=== PATIENT | male | born 1960 | race Caucasian/White ===

== ENCOUNTER 2022-02-23 01:18 | Inpatient (IN) | payer MEDICAID ==
[~2022-02-23] VITALS: Ht 180.3 cm; Wt 103.8 kg
[~2022-02-23 01:18] MED LIST: ALBU18HF2 INH; ASPI81TA52 PO; ATOR20TA66 PO; FLUT1AER5 IH; INSU100I31 SQ; LISI5TAB22 PO; METO200T49 PO; NITR0.4T48 SL; OMEP20TA23 PO
[2022-02-23 02:15] LABS: ALANINE AMINOTRANSFERASE 28 U/L (12-78); ALBUMIN 3.3 G/DL (3.4-5.0); ALBUMIN/GLOBULIN RATIO 0.7 (1.1-1.5); ALKALINE PHOSPHATASE 61 IU/L (46-116); ANION GAP 11 (8-16); ASPARTATE AMINO TRANSFERASE 21 U/L (10-37); BILIRUBIN,TOTAL 0.4 MG/DL (0.1-1.0); BLOOD UREA NITROGEN 68 MG/DL (7-18); BUN/CREATININE RATIO 16.4 (5.4-32.0); CHLORIDE 101 MMOL/L (99-107); CREATININE 4.14 MG/DL (0.60-1.10); GLUCOSE 180 MG/DL (70-104); POTASSIUM 5.5 MMOL/L (3.5-5.1); SODIUM 133 MMOL/L (135-145); TOTAL CARBON DIOXIDE 20.9 MMOL/L (24-32); TOTAL PROTEIN 8.3 G/DL (6.4-8.2); eGFR 15 ML/MIN
[2022-02-23 02:23] LABS: MAGNESIUM 2.1 MG/DL (1.5-2.4)
[2022-02-23 02:27] LABS: BASOPHILS # (AUTO) 0.1 X10'3 (0-0.2); BASOPHILS % (AUTO) 0.5 % (0-1); EOSINOPHILS # (AUTO) 0.4 X10'3 (0-0.9); HEMATOCRIT 57.4 % (42.0-52.0); LYMPHOCYTES # (AUTO) 1.9 X10'3 (1.1-4.8); LYMPHOCYTES % (AUTO) 18.1 % (21-51); MEAN CORPUSCULAR HEMOGLOBIN 29.9 PG (27.0-31.0); MEAN CORPUSCULAR HGB CONC 33.5 g/dL (33.0-36.5); MEAN CORPUSCULAR VOLUME 89.3 FL (78-98); MEAN PLATELET VOLUME 9.7 FL (7.4-10.4); MONOCYTES # (AUTO) 1.4 X10'3 (0-0.9); MONOCYTES % (AUTO) 13.6 % (2-12); NEUTROPHILS # (AUTO) 6.7 X10'3 (1.8-7.7); NEUTROPHILS % (AUTO) 63.8 % (42-75); PLATELET COUNT 211 X10'3 (140-440); RED BLOOD COUNT 6.42 X10'6 (4.70-6.10); WHITE BLOOD COUNT 10.5 X10'3 (4.5-11.0)
[2022-02-23 02:35] LABS: HEMOGLOBIN 19.2 g/dl (14.0-17.9)
[2022-02-23] MEDS ORDERED: normal saline 1000ML IV soln IVB ONE (02:50)
[2022-02-23] MEDS ORDERED: POTASSIUM BICARB 20meq eff tab 20 MEQ TABLET.EFF PO PRN ×2 (03:05)
[2022-02-23] MEDS ORDERED: potassium CL 10mEq/100ml bag 100 ML IV PRN (03:05)
[2022-02-23] MEDS ORDERED: morphine 2 MG/ML inj. syringe IV PRN (03:05)
[2022-02-23] MEDS ORDERED: HYDROcodone/acetaminophen 5mg/325mg tablet PO PRN (03:05)
[2022-02-23] MEDS ORDERED: MESSAGE TO PHARMACY PO ONE (03:05)
[2022-02-23] MEDS ORDERED: dextrose 50%-water 50ml dispensing syringe IV PRN ×2 (03:05)
[2022-02-23] MEDS ORDERED: DEXTROSE 15 GM of carb/4 tabs (each vial/BOTTLE has 4 tablets) PO PRN ×2 (03:05)
[2022-02-23] MEDS ORDERED: acetaminophen 325mg tablet PO PRN ×2 (03:05)
[2022-02-23] MEDS ORDERED: magnesium 4gm in 100ml NS 100 ML IV PRN (03:05)
[2022-02-23] MEDS ORDERED: glucagon, human recombinant 1mg kit SUBCUT PRN (03:05)
[2022-02-23] MEDS ORDERED: mag hydrox/Alum hydrox/simeth 30ml oral suspension PO PRN (03:05)
[2022-02-23] MEDS ORDERED: magnesium 2GM in 50ml NS 50 ML IV PRN (03:05)
[2022-02-23] MEDS ORDERED: ondansetron/PF 4mg/2ml inj IV PRN (03:05)
[2022-02-23] MEDS ORDERED: magnesium Cl slow-release 64mg tablet PO PRN (03:05)
[2022-02-23] MEDS ORDERED: insulin Lispro (HumaLOG) vial - multi-dose SQ SCH (03:05)
[2022-02-23] MEDS ORDERED: sodium polystyrene sulfonate 15gm/60ml oral suspension PO ONE (03:15)
[2022-02-23] MEDS ORDERED: hydrALAZINE 20mg/ml inj. IV PRN (03:30)
[2022-02-23] MEDS: normal saline 1000ml 1,000 ML IV SCH ×3 (04:19→22:50)
[2022-02-23 04:52] LABS: HEMOGLOBIN A1C 7.1 % (4.5-6.2)
--- NOTE | 2022-02-23 06:36 | NUR ---
Assumed patient care at this time. Patient resting comfortably on stretcher.
[2022-02-23] MEDS: pantoprazole 40mg Tablet.DR PO SCH (07:30)
--- NOTE | 2022-02-23 07:30 | NUR ---
Patient ambulated to restroom with staeady gait. Patient denies complaints at this time.
[2022-02-23 07:54] LABS: ALANINE AMINOTRANSFERASE 22 U/L (12-78); ALBUMIN 2.9 G/DL (3.4-5.0); ALBUMIN/GLOBULIN RATIO 0.7 (1.1-1.5); ALKALINE PHOSPHATASE 52 IU/L (46-116); ANION GAP 11 (8-16); ASPARTATE AMINO TRANSFERASE 17 U/L (10-37); BILIRUBIN,TOTAL 0.3 MG/DL (0.1-1.0); BLOOD UREA NITROGEN 68 MG/DL (7-18); BUN/CREATININE RATIO 17.7 (5.4-32.0); CALCIUM 9.5 MG/DL (8.5-10.1); CHLORIDE 106 MMOL/L (99-107); CREATININE 3.85 MG/DL (0.60-1.10); GLUCOSE 133 MG/DL (70-104); POTASSIUM 5.2 MMOL/L (3.5-5.1); SODIUM 135 MMOL/L (135-145); TOTAL CARBON DIOXIDE 18.5 MMOL/L (24-32); TOTAL PROTEIN 7.2 G/DL (6.4-8.2); eGFR 16 ML/MIN
[2022-02-23] MEDS: K and/or MAG REPLACEMENT MC SCH ×2 (08:00→22:50)
[2022-02-23] MEDS: aspirin 81mg, enteric-coated 1 TAB TABLET.DR PO SCH (08:34)
[2022-02-23] MEDS: ceFAZolin/D5W- 1GM premix 50 ML IV SCH ×2 (08:34→16:53)
[2022-02-23] MEDS: amLODIPine 5mg tablet PO SCH (08:34)
[2022-02-23] MEDS: atorvastatin 20mg tablet PO SCH (08:34)
[2022-02-23] MEDS: docusate sod 100mg capsule PO SCH ×2 (08:34→20:55)
[2022-02-23] MEDS: heparin, porcine 5000 units/ml vial SQ SCH ×2 (08:35→20:56)
[2022-02-23] MEDS: metoprolol succinate 25mg (24-HOUR) SR. Tablet PO SCH (08:35)
[2022-02-23] MEDS: allopurinol 100mg tablet PO SCH (08:35)
[2022-02-23] MEDS ORDERED: METO-411 PO (13:22)
[2022-02-23] MEDS ORDERED: MOME13HF PO (13:22)
[2022-02-23] MEDS ORDERED: LOSA50TA64 PO (13:22)
[2022-02-23] MEDS ORDERED: SIMV10TA98 PO (13:22)
[2022-02-23] MEDS ORDERED: ALBU17AE26 PO (13:22)
[2022-02-23] MEDS ORDERED: EZET10TA48 PO (13:22)
[2022-02-23] MEDS: furosemide 10 MG/1 ML 10ml inj IV SCH (18:05)
--- NOTE | 2022-02-23 18:48 | NUR ---
Received report from CAITLIN Palacios. Awaiting patient arrival to the floor.
[2022-02-23 19:20] VITALS: BP 171/105
[2022-02-23] MEDS: insulin glargine (Lantus) pen - multi-dose SQ SCH (21:00)
[2022-02-23 22:00] VITALS: BP 142/92
[2022-02-24 02:00] VITALS: BP 144/108
[2022-02-24 06:24] LABS: BASOPHILS # (AUTO) 0.1 X10'3 (0-0.2); BASOPHILS % (AUTO) 0.7 % (0-1); EOSINOPHILS # (AUTO) 0.5 X10'3 (0-0.9); EOSINOPHILS % (AUTO) 4.7 % (0-6); HEMATOCRIT 51.8 % (42.0-52.0); HEMOGLOBIN 17.4 g/dl (14.0-17.9); LYMPHOCYTES # (AUTO) 1.7 X10'3 (1.1-4.8); LYMPHOCYTES % (AUTO) 17.6 % (21-51); MEAN CORPUSCULAR HEMOGLOBIN 30.2 PG (27.0-31.0); MEAN CORPUSCULAR HGB CONC 33.5 g/dL (33.0-36.5); MEAN CORPUSCULAR VOLUME 89.9 FL (78-98); MEAN PLATELET VOLUME 9.4 FL (7.4-10.4); MONOCYTES # (AUTO) 1.2 X10'3 (0-0.9); MONOCYTES % (AUTO) 11.8 % (2-12); NEUTROPHILS # (AUTO) 6.4 X10'3 (1.8-7.7); NEUTROPHILS % (AUTO) 65.2 % (42-75); PLATELET COUNT 216 X10'3 (140-440); RED BLOOD COUNT 5.76 X10'6 (4.70-6.10); WHITE BLOOD COUNT 9.8 X10'3 (4.5-11.0)
--- NOTE | 2022-02-24 06:43 | NUR ---
Patient in room PCU 3019. I have received report from Boris TUCKER and had the opportunity to ask questions and assume patient care.
[2022-02-24 06:44] LABS: ALANINE AMINOTRANSFERASE 19 U/L (12-78); ALBUMIN/GLOBULIN RATIO 0.7 (1.1-1.5); ALKALINE PHOSPHATASE 58 IU/L (46-116); ANION GAP 12 (8-16); ASPARTATE AMINO TRANSFERASE 18 U/L (10-37); BILIRUBIN,TOTAL 0.3 MG/DL (0.1-1.0); BLOOD UREA NITROGEN 63 MG/DL (7-18); CHLORIDE 106 MMOL/L (99-107); CHOL/HDL RATIO 4.2 (0.00-4.99); CHOLESTEROL 135 MG/DL (0-200); GLUCOSE 118 MG/DL (70-104); HDL CHOLESTEROL 32 MG/DL (35-60); LDL CHOLESTEROL 78 MG/DL (50-100); SODIUM 137 MMOL/L (135-145); TOTAL CARBON DIOXIDE 18.8 MMOL/L (24-32); TOTAL PROTEIN 7.4 G/DL (6.4-8.2); TRIGLYCERIDES 215 MG/DL (20-135); eGFR 17 ML/MIN
--- NOTE | 2022-02-24 06:45 | NUR ---
Problems reprioritized. Patient report given, questions answered & plan of care reviewed with CAITLIN Cox.
[2022-02-24 07:16] VITALS: BP 140/106
[2022-02-24] MEDS: K and/or MAG REPLACEMENT MC SCH ×2 (08:00→20:04)
[2022-02-24] MEDS: allopurinol 100mg tablet PO SCH (08:30)
[2022-02-24] MEDS ORDERED: allopurinol 100mg tablet PO SCH (08:30)
[2022-02-24] MEDS: metoprolol succinate 25mg (24-HOUR) SR. Tablet PO SCH (10:33)
[2022-02-24] MEDS: pantoprazole 40mg Tablet.DR PO SCH (10:34)
[2022-02-24] MEDS: atorvastatin 20mg tablet PO SCH (10:34)
[2022-02-24] MEDS: docusate sod 100mg capsule PO SCH (10:34)
[2022-02-24] MEDS: aspirin 81mg, enteric-coated 1 TAB TABLET.DR PO SCH (10:35)
[2022-02-24] MEDS: amLODIPine 5mg tablet PO SCH (10:36)
[2022-02-24] MEDS: heparin, porcine 5000 units/ml vial SQ SCH ×2 (10:39→20:04)
[2022-02-24] MEDS: furosemide 10 MG/1 ML 10ml inj IV SCH (10:44)
[2022-02-24] MEDS: normal saline 1000ml 1,000 ML IV SCH ×2 (10:46→20:04)
--- NOTE | 2022-02-24 11:26 | NUR ---
Noted pt with T2DM, well controlled with A1c 7.1%. Per EMR DM management continually improves, with an A1c of 11.1% in 2016 and 9.1% in 2019. Written DM education with RD contact information placed in patient's chart. Will remain available. Addendum: 02/24/22 at [address] Amended: Links added.
--- NOTE | 2022-02-24 13:38 | NUR ---
DM Consult: Addressed; see prior RD note. Addendum: 02/24/22 at [address] Amended: Links added.
[2022-02-24] MEDS: magnesium hydroxide 30ml (MOM) UD suspension PO PRN (14:30)
--- NOTE | 2022-02-24 14:46 | NUR ---
DIABETIC FOOT CARE EDUCATION PROVIDED BY [facility] * Wash your feet daily with lukewarm water and soap. * Dry your feet well, especially between the toes. * Keep the skin moisturized with lotion, but do not apply it between the toes. * Check your feet for blisters, cuts or sores. * Use an emery board to shape your toenails even with the ends of your toes. * Change daily into clean, soft socks or stockings, not too big or too small. * Keep your feet warm and dry. * Preferably wear special padded socks and shoes that fit well. * Never walk barefoot indoors or outdoors. * Examine your shoes everyday for cracks, javy, nails or anything that could hurt your feet. * Tell your doctor if you find any of these problems or have any concerns after examining your feet. Addendum: 02/24/22 at 1446 by Shannon Lujan LVN Amended: Links added.
[2022-02-24 18:00] VITALS: BP 141/101
--- NOTE | 2022-02-24 18:37 | NUR ---
Problems reprioritized. Patient report given, questions answered & plan of care reviewed with Melanie TUCKER, patient stable at transfer of care.
[2022-02-24] MEDS: insulin glargine (Lantus) pen - multi-dose SQ SCH (20:14)
[2022-02-24 22:00] VITALS: BP 150/102
[2022-02-25 02:00] VITALS: BP 148/99
[2022-02-25 06:30] LABS: BASOPHILS # (AUTO) 0.1 X10'3 (0-0.2); BASOPHILS % (AUTO) 0.8 % (0-1); EOSINOPHILS # (AUTO) 0.4 X10'3 (0-0.9); EOSINOPHILS % (AUTO) 4.7 % (0-6); HEMATOCRIT 49.2 % (42.0-52.0); HEMOGLOBIN 16.1 g/dl (14.0-17.9); LYMPHOCYTES # (AUTO) 1.5 X10'3 (1.1-4.8); LYMPHOCYTES % (AUTO) 17.9 % (21-51); MEAN CORPUSCULAR HEMOGLOBIN 29.5 PG (27.0-31.0); MEAN CORPUSCULAR HGB CONC 32.8 g/dL (33.0-36.5); MEAN CORPUSCULAR VOLUME 89.9 FL (78-98); MEAN PLATELET VOLUME 9.2 FL (7.4-10.4); MONOCYTES % (AUTO) 12.4 % (2-12); NEUTROPHILS # (AUTO) 5.3 X10'3 (1.8-7.7); NEUTROPHILS % (AUTO) 64.2 % (42-75); PLATELET COUNT 159 X10'3 (140-440); RED BLOOD COUNT 5.47 X10'6 (4.70-6.10); RED CELL DISTRIBUTION WIDTH 13.7 % (11.5-14.5); WHITE BLOOD COUNT 8.3 X10'3 (4.5-11.0)
--- NOTE | 2022-02-25 06:30 | NUR ---
Patient in room PCU 3019. I have received report from toby TUCKER and had the opportunity to ask questions and assume patient care.
[2022-02-25 06:49] LABS: ALANINE AMINOTRANSFERASE 17 U/L (12-78); ALBUMIN 2.5 G/DL (3.4-5.0); ALBUMIN/GLOBULIN RATIO 0.7 (1.1-1.5); ALKALINE PHOSPHATASE 51 IU/L (46-116); ANION GAP 11 (8-16); ASPARTATE AMINO TRANSFERASE 14 U/L (10-37); BILIRUBIN,TOTAL 0.3 MG/DL (0.1-1.0); BLOOD UREA NITROGEN 65 MG/DL (7-18); BUN/CREATININE RATIO 17.3 (5.4-32.0); CALCIUM 8.3 MG/DL (8.5-10.1); CHLORIDE 106 MMOL/L (99-107); CREATININE 3.75 MG/DL (0.60-1.10); GLUCOSE 142 MG/DL (70-104); POTASSIUM 4.6 MMOL/L (3.5-5.1); SODIUM 136 MMOL/L (135-145); TOTAL CARBON DIOXIDE 19.5 MMOL/L (24-32); TOTAL PROTEIN 6.3 G/DL (6.4-8.2); eGFR 17 ML/MIN
[2022-02-25 07:00] VITALS: BP 140/101
[2022-02-25] MEDS: furosemide 10 MG/1 ML 10ml inj IV SCH (07:34)
[2022-02-25] MEDS: metoprolol succinate 25mg (24-HOUR) SR. Tablet PO SCH (07:34)
[2022-02-25] MEDS: aspirin 81mg, enteric-coated 1 TAB TABLET.DR PO SCH (07:35)
[2022-02-25] MEDS: pantoprazole 40mg Tablet.DR PO SCH (07:35)
[2022-02-25] MEDS: heparin, porcine 5000 units/ml vial SQ SCH ×2 (07:37→19:45)
[2022-02-25] MEDS: amLODIPine 5mg tablet PO SCH (07:38)
[2022-02-25] MEDS: atorvastatin 20mg tablet PO SCH (07:39)
[2022-02-25] MEDS: normal saline 1000ml 1,000 ML IV SCH (07:48)
[2022-02-25] MEDS: K and/or MAG REPLACEMENT MC SCH ×2 (08:00→20:00)
[2022-02-25] MEDS: allopurinol 100mg tablet PO SCH (08:30)
[2022-02-25 10:00] VITALS: BP 131/88
[2022-02-25 16:08] VITALS: BP 168/98
--- NOTE | 2022-02-25 17:24 | NUR ---
patient appears "sad" after seeing DR Rachel and considering possibility of dialysis in the future. Sharing about the deaths of many of his loved ones and stating that he doesnt have any real reason to stick around except for his cat. . Much time spent listening to patient. Wound care to bilat legs done. patient resting at this time .
[2022-02-25 18:00] VITALS: BP 153/96
--- NOTE | 2022-02-25 18:49 | NUR ---
Patient in room PCU 3019. I have received report from Nette TUCKER and had the opportunity to ask questions and assume patient care.
--- NOTE | 2022-02-25 18:49 | NUR ---
Problems reprioritized. Patient report given, questions answered & plan of care reviewed with Sally TUCKER.
[2022-02-25] MEDS ORDERED: albuterol 2.5 MG/3 ML nebule NEB PRN (18:50)
[2022-02-25] MEDS: insulin glargine (Lantus) pen - multi-dose SQ SCH (21:00)
[2022-02-25 22:00] VITALS: BP 165/100
[2022-02-26] MEDS: normal saline 1000ml 1,000 ML IV SCH ×3 (00:35→20:30)
[2022-02-26 06:00] VITALS: BP 177/107
--- NOTE | 2022-02-26 06:31 | NUR ---
reviewed COMPUTER HARDWARE TECHNICIAN assessment and in agreement. Pt is being evaluated by Dr. Flores for decreased renal function.
[2022-02-26 06:33] LABS: BASOPHILS % (AUTO) 0.4 % (0-1); EOSINOPHILS # (AUTO) 0.3 X10'3 (0-0.9); EOSINOPHILS % (AUTO) 2.8 % (0-6); HEMATOCRIT 49.9 % (42.0-52.0); HEMOGLOBIN 16.6 g/dl (14.0-17.9); LYMPHOCYTES # (AUTO) 1.1 X10'3 (1.1-4.8); MEAN CORPUSCULAR HEMOGLOBIN 29.9 PG (27.0-31.0); MEAN CORPUSCULAR HGB CONC 33.2 g/dL (33.0-36.5); MEAN CORPUSCULAR VOLUME 89.9 FL (78-98); MEAN PLATELET VOLUME 9.5 FL (7.4-10.4); NEUTROPHILS % (AUTO) 73.8 % (42-75); PLATELET COUNT 151 X10'3 (140-440); RED BLOOD COUNT 5.55 X10'6 (4.70-6.10); RED CELL DISTRIBUTION WIDTH 13.9 % (11.5-14.5); WHITE BLOOD COUNT 9.5 X10'3 (4.5-11.0)
--- NOTE | 2022-02-26 06:40 | NUR ---
Problems reprioritized. Patient report given, questions answered & plan of care reviewed with Hanny TUCKER.
--- NOTE | 2022-02-26 06:53 | NUR ---
Patient in room PCU 3019. I have received report from Sally TUCKER and had the opportunity to ask questions and assume patient care.
[2022-02-26 07:22] LABS: ALANINE AMINOTRANSFERASE 21 U/L (12-78); ALBUMIN 2.9 G/DL (3.4-5.0); ALBUMIN/GLOBULIN RATIO 0.7 (1.1-1.5); ALKALINE PHOSPHATASE 51 IU/L (46-116); ANION GAP 14 (8-16); ASPARTATE AMINO TRANSFERASE 16 U/L (10-37); BILIRUBIN,TOTAL 0.3 MG/DL (0.1-1.0); BLOOD UREA NITROGEN 56 MG/DL (7-18); BUN/CREATININE RATIO 14.6 (5.4-32.0); CALCIUM 8.6 MG/DL (8.5-10.1); CHLORIDE 108 MMOL/L (99-107); CREATININE 3.84 MG/DL (0.60-1.10); GLUCOSE 117 MG/DL (70-104); LACTATE DEHYDROGENASE 151 U/L (85-227); POTASSIUM 4.4 MMOL/L (3.5-5.1); SODIUM 141 MMOL/L (135-145); TOTAL CARBON DIOXIDE 19.3 MMOL/L (24-32); eGFR 16 ML/MIN
[2022-02-26 07:40] LABS: HIV ANTIBODY 1&2 RAPID NON-REACTIVE (Neg)
[2022-02-26 08:23] LABS: RHEUM FACTOR QUAL REFLEX TITER NEGATIVE (Neg)
[2022-02-26] MEDS: metoprolol succinate 25mg (24-HOUR) SR. Tablet PO SCH (08:27)
[2022-02-26] MEDS: allopurinol 100mg tablet PO SCH ×2 (08:28→08:30)
[2022-02-26] MEDS: HYDROcodone/acetaminophen 10/325mg tab PO PRN ×2 (08:28→18:05)
[2022-02-26] MEDS: amLODIPine 5mg tablet PO SCH (08:29)
[2022-02-26] MEDS: pantoprazole 40mg Tablet.DR PO SCH (08:29)
[2022-02-26] MEDS: atorvastatin 20mg tablet PO SCH (08:30)
[2022-02-26] MEDS: aspirin 81mg, enteric-coated 1 TAB TABLET.DR PO SCH (08:30)
[2022-02-26] MEDS: heparin, porcine 5000 units/ml vial SQ SCH ×2 (08:32→20:20)
[2022-02-26] MEDS: furosemide 10 MG/1 ML 10ml inj IV SCH (08:36)
[2022-02-26] MEDS: K and/or MAG REPLACEMENT MC SCH ×2 (08:37→20:23)
--- NOTE | 2022-02-26 09:27 | NUR ---
Refused to take Allopurinol. States " It makes my Gout flair".
[2022-02-26 10:59] VITALS: BP 156/110
[2022-02-26] MEDS: magnesium hydroxide 30ml (MOM) UD suspension PO PRN (13:18)
[2022-02-26 18:00] VITALS: BP 160/101
--- NOTE | 2022-02-26 18:30 | NUR ---
Patient in room PCU 3019. I have received report from Hanny TUCKER and had the opportunity to ask questions and assume patient care.
[2022-02-26] MEDS: insulin glargine (Lantus) pen - multi-dose SQ SCH (21:00)
[2022-02-26 22:00] VITALS: BP 153/99
[2022-02-27] MEDS: ceFAZolin/D5W- 1GM premix 50 ML IV SCH ×2 (00:11→08:28)
[2022-02-27 02:00] VITALS: BP 151/89
--- NOTE | 2022-02-27 03:52 | NUR ---
AGREE WITH BODY CLEANER PHYSICAL ASSESSMENT CHARTED
[2022-02-27] MEDS: HYDROcodone/acetaminophen 10/325mg tab PO PRN (05:45)
[2022-02-27 06:00] VITALS: BP 166/98
--- NOTE | 2022-02-27 06:20 | NUR ---
Problems reprioritized. Patient report given, questions answered & plan of care reviewed with Elise TUCKER.
[2022-02-27 06:32] LABS: BASOPHILS % (AUTO) 0.3 % (0-1); EOSINOPHILS # (AUTO) 0.1 X10'3 (0-0.9); EOSINOPHILS % (AUTO) 1.6 % (0-6); HEMATOCRIT 48.2 % (42.0-52.0); HEMOGLOBIN 16.1 g/dl (14.0-17.9); LYMPHOCYTES # (AUTO) 0.7 X10'3 (1.1-4.8); LYMPHOCYTES % (AUTO) 8.1 % (21-51); MEAN CORPUSCULAR HEMOGLOBIN 29.7 PG (27.0-31.0); MEAN CORPUSCULAR HGB CONC 33.4 g/dL (33.0-36.5); MEAN PLATELET VOLUME 9.7 FL (7.4-10.4); MONOCYTES % (AUTO) 11.3 % (2-12); NEUTROPHILS # (AUTO) 7.3 X10'3 (1.8-7.7); NEUTROPHILS % (AUTO) 78.7 % (42-75); PLATELET COUNT 146 X10'3 (140-440); RED BLOOD COUNT 5.41 X10'6 (4.70-6.10); RED CELL DISTRIBUTION WIDTH 13.8 % (11.5-14.5); WHITE BLOOD COUNT 9.2 X10'3 (4.5-11.0)
--- NOTE | 2022-02-27 06:48 | NUR ---
Patient in room PCU 3019. I have received report from TERESO LOPEZ and had the opportunity to ask questions and assume patient care.
[2022-02-27 07:29] LABS: ALANINE AMINOTRANSFERASE 21 U/L (12-78); ALBUMIN 2.6 G/DL (3.4-5.0); ALBUMIN/GLOBULIN RATIO 0.6 (1.1-1.5); ALKALINE PHOSPHATASE 52 IU/L (46-116); ANION GAP 12 (8-16); ASPARTATE AMINO TRANSFERASE 12 U/L (10-37); BILIRUBIN,TOTAL 0.3 MG/DL (0.1-1.0); BLOOD UREA NITROGEN 50 MG/DL (7-18); BUN/CREATININE RATIO 14.6 (5.4-32.0); CALCIUM 8.3 MG/DL (8.5-10.1); CHLORIDE 104 MMOL/L (99-107); CREATININE 3.43 MG/DL (0.60-1.10); GLUCOSE 123 MG/DL (70-104); POTASSIUM 4.2 MMOL/L (3.5-5.1); SODIUM 136 MMOL/L (135-145); TOTAL CARBON DIOXIDE 19.8 MMOL/L (24-32); TOTAL PROTEIN 6.7 G/DL (6.4-8.2); eGFR 18 ML/MIN
[2022-02-27] MEDS: K and/or MAG REPLACEMENT MC SCH (08:00)
[2022-02-27] MEDS: allopurinol 100mg tablet PO SCH (08:30)
[2022-02-27] MEDS: atorvastatin 20mg tablet PO SCH (08:30)
[2022-02-27] MEDS: metoprolol succinate 25mg (24-HOUR) SR. Tablet PO SCH (08:31)
[2022-02-27] MEDS: aspirin 81mg, enteric-coated 1 TAB TABLET.DR PO SCH (08:31)
[2022-02-27] MEDS: pantoprazole 40mg Tablet.DR PO SCH (08:31)
[2022-02-27] MEDS: heparin, porcine 5000 units/ml vial SQ SCH (08:31)
[2022-02-27] MEDS: amLODIPine 5mg tablet PO SCH (08:31)
[2022-02-27] MEDS: furosemide 10 MG/1 ML 10ml inj IV SCH (08:32)
[2022-02-27] MEDS: normal saline 1000ml 1,000 ML IV SCH (08:33)
[2022-02-27 11:00] VITALS: BP 168/107
[2022-02-27] MEDS ORDERED: CEPH-585 PO (11:31)
[2022-02-27] MEDS ORDERED: FEBU40TA PO (11:31)
--- NOTE | 2022-02-27 16:03 | NUR ---
PATIENT STABLE AND APPROPRIATE FOR DISCHARGE, IV REMOVED, TELE REMOVED, EDUCATION GIVEN, NEW MEDS E-SCRIPTED TO PREFERRED PHARMACY, ALL BELONGINGS SENT WITH PATIENT, PATIENT TAKEN TO LOBBY BY WHEELCHAIR TO PATIENT'S CAR WHERE PATIENT WILL DRIVE SELF HOME
[2022-02-28 14:02] LABS: ANTINUCLEAR ANTIBODIES Negative (Negative); ANTISTREPTOLYSIN O AB 57.1 IU/mL (0.0-200.0); COMPLEMENT C3, SERUM 129 mg/dL (82-167); COMPLEMENT C4, SERUM 23 mg/dL (12-38)
[2022-02-28 20:38] LABS: A/G RATIO 0.9 (0.7-1.7); ALBUMIN 2.8 g/dL (2.9-4.4); GAMMA GLOBULIN 0.9 g/dL (0.4-1.8); GLOBULIN, TOTAL 3.2 g/dL (2.2-3.9); M-SPIKE Not Observed g/dL (Not Observed)
[2022-03-01 14:38] LABS: ATYPICAL PANCA <1:20 titer (Neg:<1:20); CYTOPLASMIC (C-ANCA) <1:20 titer (Neg:<1:20); PERINUCLEAR (P-ANCA) <1:20 titer (Neg:<1:20)
[2022-03-05 13:21] LABS: HEPATITIS C ANTIBODY <0.1
[2022-03-05 15:26] LABS: HBSAG SCREEN Negative; RPR, QUANT. Non Reactive
== END 2022-02-27 16:03 | disposition home or self-care (01) | DRG 194 ==
LOC: ER 01:19 → ED HOLD 03:07 → EDBEDREQ 18:23 → PCU 3S 19:00
PROVIDERS: ADMIT Internal Medicine; ATTEND Family Medicine
DX: I13.0 Hypertensive heart and chronic kidney disease with heart failure and stage 1 through stage 4 chronic kidney disease, or unspecified chronic kidney disease (principal); N17.0 Acute kidney failure with tubular necrosis; I21.A1 Myocardial infarction type 2; E11.649 Type 2 diabetes mellitus with hypoglycemia without coma; E11.22 Type 2 diabetes mellitus with diabetic chronic kidney disease; D75.1 Secondary polycythemia; E86.0 Dehydration; I50.31 Acute diastolic (congestive) heart failure; E11.621 Type 2 diabetes mellitus with foot ulcer; E78.5 Hyperlipidemia, unspecified; E87.5 Hyperkalemia; K21.9 Gastro-esophageal reflux disease without esophagitis; N18.4 Chronic kidney disease, stage 4 (severe); L97.519 Non-pressure chronic ulcer of other part of right foot with unspecified severity; Z20.822 Contact with and (suspected) exposure to COVID-19; I25.10 Atherosclerotic heart disease of native coronary artery without angina pectoris; L03.115 Cellulitis of right lower limb; L03.116 Cellulitis of left lower limb; L97.929 Non-pressure chronic ulcer of unspecified part of left lower leg with unspecified severity; M1A.9XX1 Chronic gout, unspecified, with tophus (tophi); Z79.4 Long term (current) use of insulin; Z87.891 Personal history of nicotine dependence; Z95.1 Presence of aortocoronary bypass graft; I25.2 Old myocardial infarction; Z79.899 Other long term (current) drug therapy; Z79.82 Long term (current) use of aspirin; Z91.19 Patient's noncompliance with other medical treatment and regimen
CPT/HCPCS: 36415; 71045; 80053; 80061; 82948; 83036; 83615; 83735; 83880; 84155; 84165; 84439; 84484; 84550; 85025; 85651; 86038; 86060; 86160; 86256; 86430; 86592; 86703; 86803; 87081; 87340; 87635; 93005; 93306; 93922; 94760; 99285; A6258; A6260; C9803; G0378; J0690; J1644; J1815; J1940; J7030

== ENCOUNTER 2022-08-16 15:26 | Inpatient (IN) | payer MEDICAID ==
[~2022-08-16] VITALS: Ht 179.1 cm; Wt 113.6 kg
[~2022-08-16 15:26] MED LIST changes: +ALBU17AE26 PO; -ALBU18HF2 INH; -ATOR20TA66 PO; +CEPH-585 PO; +EZET10TA48 PO; +FEBU40TA PO; -FLUT1AER5 IH; -LISI5TAB22 PO; +LOSA50TA64 PO; +METO-411 PO; -METO200T49 PO; +MOME13HF11 PO; -NITR0.4T48 SL; -OMEP20TA23 PO; +SIMV10TA98 PO
[2022-08-16 15:55] LABS: BASOPHILS # (AUTO) 0.1 X10'3 (0-0.2); BASOPHILS % (AUTO) 0.6 % (0-1); EOSINOPHILS # (AUTO) 0.6 X10'3 (0-0.9); EOSINOPHILS % (AUTO) 5.5 % (0-6); HEMATOCRIT 49.8 % (42.0-52.0); HEMOGLOBIN 16.1 g/dl (14.0-17.9); LYMPHOCYTES # (AUTO) 1.6 X10'3 (1.1-4.8); MEAN CORPUSCULAR HEMOGLOBIN 28.5 PG (27.0-31.0); MEAN CORPUSCULAR HGB CONC 32.2 g/dL (33.0-36.5); MEAN CORPUSCULAR VOLUME 88.4 FL (78-98); MEAN PLATELET VOLUME 9.2 FL (7.4-10.4); MONOCYTES # (AUTO) 1.2 X10'3 (0-0.9); MONOCYTES % (AUTO) 10.8 % (2-12); NEUTROPHILS # (AUTO) 7.8 X10'3 (1.8-7.7); NEUTROPHILS % (AUTO) 69.1 % (42-75); PLATELET COUNT 199 X10'3 (140-440); RED BLOOD COUNT 5.63 X10'6 (4.70-6.10); WHITE BLOOD COUNT 11.3 X10'3 (4.5-11.0)
[2022-08-16 16:11] LABS: ALANINE AMINOTRANSFERASE 22 U/L (12-78); ALBUMIN 3.5 G/DL (3.4-5.0); ALBUMIN/GLOBULIN RATIO 0.7 (1.1-1.5); ALKALINE PHOSPHATASE 72 IU/L (46-116); ANION GAP 11 (8-16); ASPARTATE AMINO TRANSFERASE 24 U/L (10-37); BILIRUBIN,TOTAL 0.3 MG/DL (0.1-1.0); BLOOD UREA NITROGEN 79 MG/DL (7-18); BUN/CREATININE RATIO 15.9 (5.4-32.0); CALCIUM 9.8 MG/DL (8.5-10.1); CHLORIDE 102 MMOL/L (99-107); CREATININE 4.97 MG/DL (0.60-1.10); GLUCOSE 195 MG/DL (70-104); POTASSIUM 5.2 MMOL/L (3.5-5.1); SODIUM 136 MMOL/L (135-145); TOTAL CARBON DIOXIDE 23.1 MMOL/L (24-32); TOTAL PROTEIN 8.4 G/DL (6.4-8.2); eGFR 12 ML/MIN
[2022-08-16] MEDS ORDERED: aspirin 81mg tab.chew PO ONE (17:00)
[2022-08-16] MEDS ORDERED: normal saline 1000ML IV soln IVB ONE (18:55)
[2022-08-16] MEDS ORDERED: ondansetron/PF 4mg/2ml inj IV PRN (20:10)
[2022-08-16] MEDS ORDERED: potassium Cl 40MEQ/1/2NS 520ml 520 ML IV PRN (20:10)
[2022-08-16] MEDS ORDERED: morphine 2 MG/ML inj. syringe IV PRN (20:10)
[2022-08-16] MEDS ORDERED: magnesium Cl slow-release 64mg tablet PO PRN ×2 (20:10)
[2022-08-16] MEDS ORDERED: magnesium 4gm in 100ml NS 100 ML IV PRN (20:10)
[2022-08-16] MEDS ORDERED: acetaminophen 325mg tablet PO PRN (20:10)
[2022-08-16] MEDS ORDERED: magnesium 2GM in 50ml NS 50 ML IV PRN (20:10)
[2022-08-16] MEDS ORDERED: potassium Cl 20 mEq SR tablet PO PRN ×2 (20:10)
[2022-08-16] MEDS ORDERED: PERFLUTREN PROTEIN-A MICROSPHR (Optison) 0.22 MG/ML 3ML VIAL IV ONE (20:10)
[2022-08-16] MEDS: normal saline 1000ml 1,000 ML IV SCH (20:31)
[2022-08-16] MEDS ORDERED: temazepam 15mg capsule PO PRN (21:00)
[2022-08-17] MEDS ORDERED: INSU100I8 SQ (00:42)
[2022-08-17] MEDS ORDERED: AMLO5TAB PO (00:44)
--- NOTE | 2022-08-17 02:25 | NUR ---
PT SATS DROPPED WHILE ASLEEP. MAINTAINED 87% ON RA. 2L NC APPLIED.
[2022-08-17 03:39] LABS: BASOPHILS # (AUTO) 0.1 X10'3 (0-0.2); BASOPHILS % (AUTO) 0.6 % (0-1); EOSINOPHILS # (AUTO) 0.5 X10'3 (0-0.9); EOSINOPHILS % (AUTO) 5.2 % (0-6); HEMATOCRIT 47.1 % (42.0-52.0); HEMOGLOBIN 15.4 g/dl (14.0-17.9); LYMPHOCYTES # (AUTO) 1.8 X10'3 (1.1-4.8); LYMPHOCYTES % (AUTO) 17.2 % (21-51); MEAN CORPUSCULAR HEMOGLOBIN 28.9 PG (27.0-31.0); MEAN CORPUSCULAR HGB CONC 32.7 g/dL (33.0-36.5); MEAN CORPUSCULAR VOLUME 88.2 FL (78-98); MEAN PLATELET VOLUME 9.3 FL (7.4-10.4); MONOCYTES # (AUTO) 1.2 X10'3 (0-0.9); MONOCYTES % (AUTO) 11.5 % (2-12); NEUTROPHILS # (AUTO) 6.8 X10'3 (1.8-7.7); NEUTROPHILS % (AUTO) 65.5 % (42-75); PLATELET COUNT 187 X10'3 (140-440); RED BLOOD COUNT 5.34 X10'6 (4.70-6.10); RED CELL DISTRIBUTION WIDTH 13.8 % (11.5-14.5); WHITE BLOOD COUNT 10.4 X10'3 (4.5-11.0)
[2022-08-17 03:47] LABS: ALBUMIN 3.2 G/DL (3.4-5.0); ANION GAP 12 (8-16); BLOOD UREA NITROGEN 80 MG/DL (7-18); BUN/CREATININE RATIO 16.4 (5.4-32.0); CHLORIDE 103 MMOL/L (99-107); CREATININE 4.89 MG/DL (0.60-1.10); GLUCOSE 183 MG/DL (70-104); MAGNESIUM 1.9 MG/DL (1.5-2.4); POTASSIUM 4.7 MMOL/L (3.5-5.1); SODIUM 136 MMOL/L (135-145); TOTAL CARBON DIOXIDE 21.1 MMOL/L (24-32); eGFR 12 ML/MIN
[2022-08-17 04:39] LABS: CALCIUM 9.6 MG/DL (8.5-10.1)
[2022-08-17] MEDS: normal saline 1000ml 1,000 ML IV SCH ×3 (06:21→22:48)
[2022-08-17] MEDS: K and/or MAG REPLACEMENT MC SCH ×2 (08:02→20:00)
--- NOTE | 2022-08-17 08:07 | NUR ---
promotional table spacer Page Accepted promotional table spacer Message: ED 10 Brown, R is diabetic, med reconciliation completed. Please resume insulin coverage. Thank you Jacque Luo Responses: promotional table spacer Transaction number: [id number] CLOSE [X] SEND ANOTHER PAGE Thank you for visiting [facility] promotional table spacer
[2022-08-17] MEDS ORDERED: FLU VACC QS2022-23(6MOS UP)/PF 60 MCG/0.5 ML SYRINGE IMVAC ONE (09:50)
[2022-08-17 10:04] LABS: HEMOGLOBIN A1C 8.6 % (4.5-6.2)
[2022-08-17 10:20] VITALS: BP 135/91
--- NOTE | 2022-08-17 11:07 | NUR ---
PAGER ID: [phone] MESSAGE: [id number] Ady pt has no code status ordered. Med rec completed, no home meds ordered yet. Jairo [phone]
--- NOTE | 2022-08-17 12:08 | NUR ---
PAGER ID: [phone] MESSAGE: [id number] Peter- no code status ordered. No home meds ordered. Med rec completed. Jairo [phone]
[2022-08-17] MEDS ORDERED: albuterol 2.5 MG/3 ML nebule NEB PRN (12:20)
[2022-08-17] MEDS: aspirin 81mg, enteric-coated 1 TAB TABLET.DR PO SCH (12:30)
--- NOTE | 2022-08-17 12:54 | NUR ---
PAGER ID: [phone] MESSAGE: [id number] Peter- BS>200,home insulin not ordered. Jairo [phone]
[2022-08-17] MEDS ORDERED: nitroGLYCERIN 0.4mg SUBLingual tab SL PRN (13:35)
[2022-08-17] MEDS ORDERED: aminophylline 250mg/10ml inj. IV PRN (13:35)
[2022-08-17] MEDS ORDERED: metoprolol tartrate 1mg/ml inj IV PRN (13:35)
[2022-08-17] MEDS ORDERED: regadenoson 0.4mg/5ml syringe IV PRN (13:35)
[2022-08-17 14:50] VITALS: BP 153/93
--- NOTE | 2022-08-17 16:04 | NUR ---
PAGER ID: [phone] MESSAGE: [id number] Peter-do you want his insulin continued? I still do not see an order. Jairo [phone]
[2022-08-17] MEDS ORDERED: glucagon, human recombinant 1mg kit SUBCUT PRN (16:50)
[2022-08-17] MEDS ORDERED: dextrose 50%-water 50ml dispensing syringe IV PRN ×2 (16:50)
[2022-08-17] MEDS ORDERED: MESSAGE TO PHARMACY PO ONE (16:50)
[2022-08-17] MEDS ORDERED: DEXTROSE 15 GM of carb/4 tabs (each vial/BOTTLE has 4 tablets) PO PRN ×2 (16:50)
--- NOTE | 2022-08-17 17:53 | NUR ---
NPO at midnight for stress test. No caffeine.
[2022-08-17 18:00] VITALS: BP 156/94
--- NOTE | 2022-08-17 18:00 | NUR ---
Patient in room PCU 3012. I have received report from CAITLIN Gill and had the opportunity to ask questions and assume patient care.
[2022-08-17] MEDS: insulin Lispro (HumaLOG) vial - multi-dose SQ SCH (20:29)
[2022-08-17] MEDS: insulin glargine (Lantus) pen - multi-dose SQ SCH (21:00)
[2022-08-17] MEDS: metoprolol succinate 25mg (24-HOUR) SR. Tablet PO SCH (21:01)
[2022-08-17 22:00] VITALS: BP 141/84
[2022-08-18] VITALS (13 sets, daily range): BP systolic 130–158; BP diastolic 81–91
[2022-08-18 06:40] LABS: ALBUMIN 2.7 G/DL (3.4-5.0); ANION GAP 9 (8-16); BLOOD UREA NITROGEN 73 MG/DL (7-18); BUN/CREATININE RATIO 16.7 (5.4-32.0); CALCIUM 8.5 MG/DL (8.5-10.1); CHLORIDE 107 MMOL/L (99-107); CREATININE 4.36 MG/DL (0.60-1.10); GLUCOSE 141 MG/DL (70-104); MAGNESIUM 1.7 MG/DL (1.5-2.4); POTASSIUM 4.9 MMOL/L (3.5-5.1); SODIUM 135 MMOL/L (135-145); TOTAL CARBON DIOXIDE 19.5 MMOL/L (24-32); eGFR 14 ML/MIN
[2022-08-18 06:57] LABS: BASOPHILS % (AUTO) 0.6 % (0-1); EOSINOPHILS # (AUTO) 0.4 X10'3 (0-0.9); HEMATOCRIT 42.6 % (42.0-52.0); HEMOGLOBIN 13.9 g/dl (14.0-17.9); LYMPHOCYTES # (AUTO) 1.3 X10'3 (1.1-4.8); LYMPHOCYTES % (AUTO) 15.2 % (21-51); MEAN CORPUSCULAR HEMOGLOBIN 28.9 PG (27.0-31.0); MEAN CORPUSCULAR HGB CONC 32.6 g/dL (33.0-36.5); MEAN CORPUSCULAR VOLUME 88.9 FL (78-98); MEAN PLATELET VOLUME 9.2 FL (7.4-10.4); MONOCYTES % (AUTO) 11.2 % (2-12); NEUTROPHILS # (AUTO) 5.9 X10'3 (1.8-7.7); PLATELET COUNT 145 X10'3 (140-440); RED BLOOD COUNT 4.79 X10'6 (4.70-6.10); RED CELL DISTRIBUTION WIDTH 13.8 % (11.5-14.5); WHITE BLOOD COUNT 8.6 X10'3 (4.5-11.0)
[2022-08-18] MEDS: K and/or MAG REPLACEMENT MC SCH ×2 (07:20→20:00)
--- NOTE | 2022-08-18 09:52 | NUR ---
DM consult: Per EMR pt with T2DM, current A1c 8.6%. Attempted visit with pt at bedside however pt out of room. Written DM education with RD contact information left at patient's bedside. Will remain available. Addendum: 08/18/22 at [address] Amended: Links added.
[2022-08-18] MEDS: metoprolol succinate 25mg (24-HOUR) SR. Tablet PO SCH ×2 (10:27→21:32)
[2022-08-18] MEDS: aspirin 81mg, enteric-coated 1 TAB TABLET.DR PO SCH (10:27)
[2022-08-18] MEDS: amLODIPine 5mg tablet PO SCH (10:28)
[2022-08-18] MEDS: normal saline 1000ml 1,000 ML IV SCH ×2 (10:34→17:22)
[2022-08-18] MEDS: insulin Lispro (HumaLOG) vial - multi-dose SQ SCH (13:10)
--- NOTE | 2022-08-18 20:47 | NUR ---
2048 Note on: GALILEO CABEZAS Paged Hospitalist regarding Critical Troponin of 317. Trending down. Previous Troponin 369 (08/16/22). 08/18/22
[2022-08-18] MEDS: insulin glargine (Lantus) pen - multi-dose SQ SCH (21:00)
[2022-08-19] MEDS: normal saline 1000ml 1,000 ML IV SCH ×3 (01:51→18:10)
[2022-08-19 02:00] VITALS: BP 135/73
[2022-08-19 06:23] LABS: BASOPHILS # (AUTO) 0.1 X10'3 (0-0.2); BASOPHILS % (AUTO) 0.7 % (0-1); EOSINOPHILS # (AUTO) 0.4 X10'3 (0-0.9); EOSINOPHILS % (AUTO) 4.9 % (0-6); HEMATOCRIT 42.7 % (42.0-52.0); LYMPHOCYTES # (AUTO) 1.2 X10'3 (1.1-4.8); LYMPHOCYTES % (AUTO) 15.9 % (21-51); MEAN CORPUSCULAR HEMOGLOBIN 29.2 PG (27.0-31.0); MEAN CORPUSCULAR HGB CONC 32.7 g/dL (33.0-36.5); MEAN CORPUSCULAR VOLUME 89.1 FL (78-98); MONOCYTES % (AUTO) 13.2 % (2-12); NEUTROPHILS # (AUTO) 4.9 X10'3 (1.8-7.7); NEUTROPHILS % (AUTO) 65.3 % (42-75); PLATELET COUNT 137 X10'3 (140-440); RED CELL DISTRIBUTION WIDTH 13.6 % (11.5-14.5); WHITE BLOOD COUNT 7.5 X10'3 (4.5-11.0)
[2022-08-19 06:30] LABS: ALBUMIN 2.8 G/DL (3.4-5.0); ANION GAP 7 (8-16); BLOOD UREA NITROGEN 64 MG/DL (7-18); BUN/CREATININE RATIO 15.8 (5.4-32.0); CALCIUM 8.3 MG/DL (8.5-10.1); CHLORIDE 108 MMOL/L (99-107); CREATININE 4.04 MG/DL (0.60-1.10); GLUCOSE 118 MG/DL (70-104); MAGNESIUM 1.7 MG/DL (1.5-2.4); POTASSIUM 4.8 MMOL/L (3.5-5.1); SODIUM 135 MMOL/L (135-145); TOTAL CARBON DIOXIDE 20.5 MMOL/L (24-32); eGFR 15 ML/MIN
--- NOTE | 2022-08-19 06:34 | NUR ---
Patient in room PCU 3012. I have received report from Stephen and had the opportunity to ask questions and assume patient care.
[2022-08-19 07:00] VITALS: BP 134/77
[2022-08-19] MEDS: K and/or MAG REPLACEMENT MC SCH ×2 (07:15→19:58)
[2022-08-19] MEDS: aspirin 81mg, enteric-coated 1 TAB TABLET.DR PO SCH (07:54)
[2022-08-19] MEDS: amLODIPine 5mg tablet PO SCH (07:54)
[2022-08-19] MEDS: metoprolol succinate 25mg (24-HOUR) SR. Tablet PO SCH ×2 (07:54→19:57)
[2022-08-19] MEDS: insulin Lispro (HumaLOG) vial - multi-dose SQ SCH ×3 (09:01→19:56)
[2022-08-19 11:37] VITALS: BP 133/75
[2022-08-19] MEDS: clopidogrel 75mg tablet PO SCH (13:39)
[2022-08-19 13:47] LABS: CHOL/HDL RATIO 4.4 (0.00-4.99); CHOLESTEROL 154 MG/DL (0-200); HDL CHOLESTEROL 35 MG/DL (35-60); LDL CHOLESTEROL 93 MG/DL (50-100); TRIGLYCERIDES 164 MG/DL (20-135)
[2022-08-19 15:00] VITALS: BP 141/89
[2022-08-19 18:00] VITALS: BP 147/91
--- NOTE | 2022-08-19 18:30 | NUR ---
Problems reprioritized. Patient report given, questions answered & plan of care reviewed with Stephen.
[2022-08-19] MEDS: insulin glargine (Lantus) pen - multi-dose SQ SCH (21:00)
[2022-08-19 22:00] VITALS: BP 152/96
[2022-08-19 23:51] LABS: UREA NITROGEN 24HR,URINE 12.8 GM/24HR (7-20)
[2022-08-20] MEDS: normal saline 1000ml 1,000 ML IV SCH ×2 (00:11→10:22)
[2022-08-20] MEDS ORDERED: hydrALAZINE 20mg/ml inj. IV PRN (01:30)
[2022-08-20 02:00] VITALS: BP 153/97
--- NOTE | 2022-08-20 03:35 | NUR ---
08/20/22334 Note on: JOCELYNNGALILEO T Pt extremely upset, stating the doctors have stopped giving him his Home Meds and his BP is not under control and we are going to cause him to have another heart attack. Staff has explained his medications to him several times over the last 3 days. Pt has made several off-handed threatening comments, such as "I now know why people shoot up places like this. If I had one of my guns, I would shoot everyone in here" and "if I don't get to see a doctor in person and get my meds like I'm supposed to, they are going to be taking me to intermediate for assault." cashier general notified. Pt wants to leave AMA. Have explained several times why he should NOT leave but pt continues to state that he wants to leave and he is angry with the care of the doctors here. Charge Nurse went down to talk w/ pt and convinced him to try the meds that the MD ordered right now and not leave. Pt agreed.
[2022-08-20] MEDS ORDERED: LORazepam 1 MG tablet PO PRN (03:40)
[2022-08-20] MEDS ORDERED: LORazepam 2 mg/ml vial IV PRN ×2 (03:40)
[2022-08-20] MEDS ORDERED: LORazepam 0.5 MG tablet PO PRN (03:40)
[2022-08-20] MEDS ORDERED: isosorbide mononitrate 30mg tab.SR.24H PO ONE (03:45)
[2022-08-20 04:30] VITALS: BP 129/88
[2022-08-20 06:00] VITALS: BP 153/88
--- NOTE | 2022-08-20 06:31 | NUR ---
Patient in room PCU 3012. I have received report from Stephen and had the opportunity to ask questions and assume patient care.
[2022-08-20 06:49] LABS: BASOPHILS % (AUTO) 0.5 % (0-1); EOSINOPHILS # (AUTO) 0.4 X10'3 (0-0.9); EOSINOPHILS % (AUTO) 5.1 % (0-6); HEMATOCRIT 43.9 % (42.0-52.0); HEMOGLOBIN 14.4 g/dl (14.0-17.9); LYMPHOCYTES # (AUTO) 1.3 X10'3 (1.1-4.8); LYMPHOCYTES % (AUTO) 15.8 % (21-51); MEAN CORPUSCULAR HEMOGLOBIN 29.1 PG (27.0-31.0); MEAN CORPUSCULAR HGB CONC 32.9 g/dL (33.0-36.5); MEAN CORPUSCULAR VOLUME 88.4 FL (78-98); MONOCYTES # (AUTO) 0.9 X10'3 (0-0.9); MONOCYTES % (AUTO) 11.3 % (2-12); NEUTROPHILS # (AUTO) 5.4 X10'3 (1.8-7.7); NEUTROPHILS % (AUTO) 67.3 % (42-75); PLATELET COUNT 139 X10'3 (140-440); RED BLOOD COUNT 4.96 X10'6 (4.70-6.10); RED CELL DISTRIBUTION WIDTH 13.8 % (11.5-14.5); WHITE BLOOD COUNT 8.1 X10'3 (4.5-11.0)
[2022-08-20 07:00] LABS: ALBUMIN 2.9 G/DL (3.4-5.0); ANION GAP 10 (8-16); BLOOD UREA NITROGEN 62 MG/DL (7-18); CALCIUM 8.6 MG/DL (8.5-10.1); CHLORIDE 108 MMOL/L (99-107); CREATININE 3.88 MG/DL (0.60-1.10); GLUCOSE 128 MG/DL (70-104); MAGNESIUM 1.7 MG/DL (1.5-2.4); POTASSIUM 4.6 MMOL/L (3.5-5.1); SODIUM 138 MMOL/L (135-145); TOTAL CARBON DIOXIDE 19.6 MMOL/L (24-32); eGFR 16 ML/MIN
[2022-08-20] MEDS: K and/or MAG REPLACEMENT MC SCH (07:38)
[2022-08-20] MEDS: aspirin 81mg, enteric-coated 1 TAB TABLET.DR PO SCH (07:49)
[2022-08-20] MEDS: amLODIPine 5mg tablet PO SCH (07:50)
[2022-08-20] MEDS: clopidogrel 75mg tablet PO SCH (07:50)
[2022-08-20] MEDS: metoprolol succinate 25mg (24-HOUR) SR. Tablet PO SCH (07:50)
[2022-08-20] MEDS ORDERED: atorvastatin 20mg tablet PO SCH (08:00)
[2022-08-20] MEDS ORDERED: isosorbide mononitrate 30mg tab.SR.24H PO SCH (08:00)
[2022-08-20] MEDS: insulin Lispro (HumaLOG) vial - multi-dose SQ SCH (08:33)
[2022-08-20 10:30] VITALS: BP 120/72
--- NOTE | 2022-08-20 10:43 | NUR ---
Initial: Pt admit for CP and TANVIR with h/o CKD IV. Pt on a CHO controlled diet and eating well, documented with 100% PO intake throughout LOS. [facility] 08/18. No nutrition intervention implemented at this time. Will continue to follow and make recommendations as appropriate. Recommendations: 1) Continue CHO controlled diet 2) Bowel care PRN 3) Weekly scaled weights Addendum: 08/20/22 at [address] Amended: Links added.
[2022-08-20] MEDS ORDERED: ISOS30TA84 PO (11:49)
[2022-08-20] MEDS ORDERED: CLOP75TA34 PO (11:49)
[2022-08-20] MEDS ORDERED: ATOR20TA66 PO (11:49)
== END 2022-08-20 14:23 | disposition home or self-care (01) | DRG 190 ==
LOC: ER 15:27 → ED HOLD 20:22 → EDBEDREQ 08-17 09:20 → PCU 3S 08-17 10:20
PROVIDERS: ADMIT Internal Medicine; ATTEND Internal Medicine
PROC: 3E02340 Introduction of Influenza Vaccine into Muscle, Percutaneous Approach (ICD-10-PCS; principal; 2022-08-17)
PROC: 4A02XM4 Measurement of Cardiac Total Activity, External Approach (ICD-10-PCS; 2022-08-18)
PROC: 3E033HZ Introduction of Radioactive Substance into Peripheral Vein, Percutaneous Approach (ICD-10-PCS; 2022-08-18)
DX: I25.119 Atherosclerotic heart disease of native coronary artery with unspecified angina pectoris (principal); I21.A1 Myocardial infarction type 2; N17.9 Acute kidney failure, unspecified; I13.0 Hypertensive heart and chronic kidney disease with heart failure and stage 1 through stage 4 chronic kidney disease, or unspecified chronic kidney disease; E11.22 Type 2 diabetes mellitus with diabetic chronic kidney disease; I50.30 Unspecified diastolic (congestive) heart failure; N18.9 Chronic kidney disease, unspecified; K21.9 Gastro-esophageal reflux disease without esophagitis; E78.5 Hyperlipidemia, unspecified; E87.5 Hyperkalemia; I25.2 Old myocardial infarction; Z79.4 Long term (current) use of insulin; Z95.1 Presence of aortocoronary bypass graft; Z79.899 Other long term (current) drug therapy; Z82.49 Family history of ischemic heart disease and other diseases of the circulatory system; Z87.891 Personal history of nicotine dependence; Z95.5 Presence of coronary angioplasty implant and graft; Z23 Encounter for immunization
CPT/HCPCS: 36415; 71045; 74176; 78452; 80048; 80053; 80061; 82570; 82948; 83036; 83735; 83880; 84132; 84156; 84484; 84560; 85025; 87081; 90686; 93005; 93017; 93306; 99285; A9500; G0378; J0360; J1815; J2060; J2785; J7030

== ENCOUNTER 2022-08-22 14:03 | Emergency (ER) | payer MEDICAID ==
[~2022-08-22] VITALS: Ht 180.3 cm; Wt 115.7 kg
[~2022-08-22 14:03] MED LIST changes: +AMLO5TAB PO; +ATOR20TA66 PO; -CEPH-585 PO; +CLOP75TA34 PO; -EZET10TA48 PO; -FEBU40TA PO; +INSU100I8 SQ; +ISOS30TA84 PO; -MOME13HF11 PO; -SIMV10TA98 PO
[2022-08-22 14:32] LABS: BASOPHILS # (AUTO) 0.1 X10'3 (0-0.2); BASOPHILS % (AUTO) 0.7 % (0-1); EOSINOPHILS # (AUTO) 0.5 X10'3 (0-0.9); EOSINOPHILS % (AUTO) 4.7 % (0-6); HEMATOCRIT 45.6 % (42.0-52.0); LYMPHOCYTES # (AUTO) 1.2 X10'3 (1.1-4.8); LYMPHOCYTES % (AUTO) 10.3 % (21-51); MEAN CORPUSCULAR HEMOGLOBIN 29.2 PG (27.0-31.0); MEAN CORPUSCULAR VOLUME 88.7 FL (78-98); MEAN PLATELET VOLUME 8.6 FL (7.4-10.4); MONOCYTES # (AUTO) 1.1 X10'3 (0-0.9); MONOCYTES % (AUTO) 9.8 % (2-12); NEUTROPHILS # (AUTO) 8.6 X10'3 (1.8-7.7); NEUTROPHILS % (AUTO) 74.5 % (42-75); PLATELET COUNT 176 X10'3 (140-440); RED BLOOD COUNT 5.15 X10'6 (4.70-6.10); RED CELL DISTRIBUTION WIDTH 13.8 % (11.5-14.5); WHITE BLOOD COUNT 11.5 X10'3 (4.5-11.0)
[2022-08-22 14:47] LABS: ALANINE AMINOTRANSFERASE 29 U/L (12-78); ALBUMIN 3.4 G/DL (3.4-5.0); ALBUMIN/GLOBULIN RATIO 0.8 (1.1-1.5); ALKALINE PHOSPHATASE 73 IU/L (46-116); ANION GAP 11 (8-16); ASPARTATE AMINO TRANSFERASE 20 U/L (10-37); BILIRUBIN,TOTAL 0.4 MG/DL (0.1-1.0); BLOOD UREA NITROGEN 60 MG/DL (7-18); BUN/CREATININE RATIO 14.3 (5.4-32.0); CALCIUM 9.8 MG/DL (8.5-10.1); CHLORIDE 104 MMOL/L (99-107); CREATININE 4.19 MG/DL (0.60-1.10); GLUCOSE 244 MG/DL (70-104); POTASSIUM 4.9 MMOL/L (3.5-5.1); SODIUM 137 MMOL/L (135-145); TOTAL CARBON DIOXIDE 22.2 MMOL/L (24-32); TOTAL PROTEIN 7.8 G/DL (6.4-8.2); eGFR 15 ML/MIN
[2022-08-22 14:56] LABS: MAGNESIUM 1.8 MG/DL (1.5-2.4)
[2022-08-22 15:46] VITALS: BP 144/93
== END 2022-08-22 16:11 | disposition home or self-care (01) ==
LOC: ER 14:03
DX: I10 Essential (primary) hypertension (principal); R77.8 Other specified abnormalities of plasma proteins; K21.9 Gastro-esophageal reflux disease without esophagitis; I12.0 Hypertensive chronic kidney disease with stage 5 chronic kidney disease or end stage renal disease; E11.22 Type 2 diabetes mellitus with diabetic chronic kidney disease; E11.9 Type 2 diabetes mellitus without complications
CPT/HCPCS: 36415; 71045; 80053; 83735; 83880; 84484; 85025; 93005; 99285

== ENCOUNTER 2022-10-31 13:24 | Inpatient (IN) | payer MEDICAID ==
[~2022-10-31] VITALS: Ht 180.3 cm; Wt 119.3 kg
[2022-10-31 13:48] LABS: BASOPHILS # (AUTO) 0.1 X10'3 (0-0.2); BASOPHILS % (AUTO) 0.7 % (0-1); EOSINOPHILS # (AUTO) 0.3 X10'3 (0-0.9); EOSINOPHILS % (AUTO) 2.7 % (0-6); HEMATOCRIT 44.9 % (42.0-52.0); HEMOGLOBIN 14.5 g/dl (14.0-17.9); LYMPHOCYTES # (AUTO) 0.9 X10'3 (1.1-4.8); MEAN CORPUSCULAR HEMOGLOBIN 29.5 PG (27.0-31.0); MEAN CORPUSCULAR HGB CONC 32.3 g/dL (33.0-36.5); MEAN CORPUSCULAR VOLUME 91.3 FL (78-98); MEAN PLATELET VOLUME 8.9 FL (7.4-10.4); MONOCYTES % (AUTO) 10.2 % (2-12); NEUTROPHILS # (AUTO) 7.6 X10'3 (1.8-7.7); NEUTROPHILS % (AUTO) 77.4 % (42-75); PLATELET COUNT 202 X10'3 (140-440); RED BLOOD COUNT 4.91 X10'6 (4.70-6.10); RED CELL DISTRIBUTION WIDTH 15.5 % (11.5-14.5); WHITE BLOOD COUNT 9.9 X10'3 (4.5-11.0)
[2022-10-31 14:02] LABS: APTT 28 SECONDS (22-32)
[2022-10-31 14:07] LABS: ALANINE AMINOTRANSFERASE 28 U/L (12-78); ALBUMIN 3.3 G/DL (3.4-5.0); ALBUMIN/GLOBULIN RATIO 0.8 (1.1-1.5); ALKALINE PHOSPHATASE 69 IU/L (46-116); ANION GAP 14 (8-16); ASPARTATE AMINO TRANSFERASE 21 U/L (10-37); BILIRUBIN,TOTAL 0.4 MG/DL (0.1-1.0); BLOOD UREA NITROGEN 93 MG/DL (7-18); BUN/CREATININE RATIO 17.8 (10.0-20.0); CALCIUM 8.8 MG/DL (8.5-10.1); CHLORIDE 106 MMOL/L (99-107); CREATININE 5.23 MG/DL (0.60-1.10); GLUCOSE 151 MG/DL (70-104); POTASSIUM 5.8 MMOL/L (3.5-5.1); SODIUM 140 MMOL/L (135-145); TOTAL CARBON DIOXIDE 20.1 MMOL/L (24-32); TOTAL PROTEIN 7.3 G/DL (6.4-8.2); eGFR 11 ML/MIN
[2022-10-31 14:18] LABS: MAGNESIUM 2.1 MG/DL (1.5-2.4)
[2022-10-31] MEDS ORDERED: furosemide 10 MG/1 ML 10ml inj IV ONE (15:10)
[2022-10-31] MEDS ORDERED: HYDR-4070 PO (15:16)
[2022-10-31] MEDS ORDERED: MOME13HF11 IH (15:16)
[2022-10-31] MEDS ORDERED: AMLO2.5T5 PO (15:16)
[2022-10-31] MEDS ORDERED: EZET10TA48 PO (15:16)
[2022-10-31] MEDS ORDERED: FEBU40TA3 PO (15:16)
[2022-10-31] MEDS ORDERED: ISOS30TA9 PO (15:16)
[2022-10-31] MEDS ORDERED: ATOR40TA72 PO (15:16)
[2022-10-31] MEDS ORDERED: IRBE150T24 PO (15:16)
[2022-10-31] MEDS ORDERED: ERGO500093 PO (15:21)
[2022-10-31] MEDS ORDERED: bisacodyl 10mg suppository rectal RC PRN (15:30)
[2022-10-31] MEDS ORDERED: mag hydrox/Alum hydrox/simeth 30ml oral suspension PO PRN (15:30)
[2022-10-31] MEDS ORDERED: magnesium hydroxide 30ml (MOM) UD suspension PO PRN (15:30)
[2022-10-31] MEDS ORDERED: HYDROmorphone inj. 0.5 MG/0.5 ML DISP.SYRIN IV PRN (15:30)
[2022-10-31] MEDS ORDERED: potassium Cl 40MEQ/1/2NS 520ml 520 ML IV PRN (15:30)
[2022-10-31] MEDS ORDERED: HYDROcodone/acetaminophen 5mg/325mg tablet PO PRN (15:30)
[2022-10-31] MEDS ORDERED: acetaminophen 650mg rectal suppository RC PRN (15:30)
[2022-10-31] MEDS ORDERED: HYDROmorphone/PF 0.2 MG/ML SYRINGE IV PRN (15:30)
[2022-10-31] MEDS ORDERED: magnesium 4gm in 100ml NS 100 ML IV PRN (15:30)
[2022-10-31] MEDS ORDERED: potassium Cl 20 mEq SR tablet PO PRN ×2 (15:30)
[2022-10-31] MEDS ORDERED: ondansetron 4mg rapidly disintigrating tab PO PRN (15:30)
[2022-10-31] MEDS ORDERED: HYDROcodone/acetaminophen 10/325mg tab PO PRN (15:30)
[2022-10-31] MEDS ORDERED: magnesium Cl slow-release 64mg tablet PO PRN (15:30)
[2022-10-31] MEDS ORDERED: magnesium 2GM in 50ml NS 50 ML IV PRN (15:30)
[2022-10-31] MEDS ORDERED: ondansetron/PF 4mg/2ml inj IV PRN (15:30)
[2022-10-31] MEDS ORDERED: acetaminophen 325mg tablet PO PRN ×2 (15:30)
[2022-10-31] MEDS: furosemide 40mg/4ml inj IV SCH (16:05)
--- NOTE | 2022-10-31 18:11 | NUR ---
dinner tray given to patient
[2022-10-31] MEDS ORDERED: K and/or MAG REPLACEMENT MC SCH (20:00)
[2022-10-31] MEDS: docusate sod 100mg capsule PO SCH (20:00)
[2022-10-31] MEDS: heparin, porcine 5000 units/ml vial SQ SCH (20:35)
[2022-10-31] MEDS ORDERED: temazepam 15mg capsule PO PRN (21:00)
[2022-10-31 21:11] LABS: CLARITY,URINE CLEAR (Clear); COLOR,URINE YELLOW (Yellow); GLUCOSE, URINE 100 mg/dl (Neg); KETONES,URINE NEGATIVE (Neg); LEUKOCYTE ESTERASE ,URINE NEGATIVE (Neg); NITRITES, URINE NEGATIVE (Neg); OCCULT BLOOD,URINE TRACE-INTACT (Neg); PROTEIN,URINE 100 mg/dl (Neg); UROBILINOGEN,URINE 0.2 E.U/dL (0.2-1.0)
[2022-10-31 21:15] LABS: UA COLLECTION TYPE URINAL
[2022-10-31 21:22] LABS: RBC,URINE 0-2 /HPF (0-2)
[2022-10-31 21:23] LABS: BACTERIA,URINE FEW /HPF (Neg); SQUAMOUS EPITHELIAL CELL,UR FEW /LPF (FEW); STARCH,URINE FEW /HPF (NEGATIVE)
[2022-10-31 21:28] LABS: TOTAL PROTEIN,URINE RANDOM 259.1 MG/DL
[2022-10-31 21:51] LABS: UA EOSINOPHILS NO EOS /HPF
[2022-11-01] VITALS (7 sets, daily range): BP systolic 121–141; BP diastolic 71–91
[2022-11-01] MEDS: furosemide 40mg/4ml inj IV SCH ×4 (01:47→23:49)
[2022-11-01 03:15] LABS: BASOPHILS % (AUTO) 0.5 % (0-1); EOSINOPHILS # (AUTO) 0.3 X10'3 (0-0.9); HEMATOCRIT 42.7 % (42.0-52.0); HEMOGLOBIN 13.9 g/dl (14.0-17.9); LYMPHOCYTES # (AUTO) 0.7 X10'3 (1.1-4.8); LYMPHOCYTES % (AUTO) 8.1 % (21-51); MEAN CORPUSCULAR HEMOGLOBIN 29.8 PG (27.0-31.0); MEAN CORPUSCULAR HGB CONC 32.6 g/dL (33.0-36.5); MEAN CORPUSCULAR VOLUME 91.3 FL (78-98); MEAN PLATELET VOLUME 8.8 FL (7.4-10.4); MONOCYTES % (AUTO) 11.3 % (2-12); NEUTROPHILS # (AUTO) 6.9 X10'3 (1.8-7.7); NEUTROPHILS % (AUTO) 77.1 % (42-75); PLATELET COUNT 165 X10'3 (140-440); RED BLOOD COUNT 4.67 X10'6 (4.70-6.10); RED CELL DISTRIBUTION WIDTH 15.6 % (11.5-14.5); WHITE BLOOD COUNT 8.9 X10'3 (4.5-11.0)
[2022-11-01 03:44] LABS: ALANINE AMINOTRANSFERASE 26 U/L (12-78); ALBUMIN 3.2 G/DL (3.4-5.0); ALBUMIN/GLOBULIN RATIO 0.8 (1.1-1.5); ALKALINE PHOSPHATASE 63 IU/L (46-116); ANION GAP 11 (8-16); ASPARTATE AMINO TRANSFERASE 16 U/L (10-37); BILIRUBIN,TOTAL 0.4 MG/DL (0.1-1.0); BLOOD UREA NITROGEN 99 MG/DL (7-18); BUN/CREATININE RATIO 17.4 (10.0-20.0); CALCIUM 8.5 MG/DL (8.5-10.1); CHLORIDE 107 MMOL/L (99-107); CREATININE 5.69 MG/DL (0.60-1.10); GLUCOSE 145 MG/DL (70-104); MAGNESIUM 2.1 MG/DL (1.5-2.4); PHOSPHORUS 8.1 MG/DL (2.3-4.5); POTASSIUM 5.8 MMOL/L (3.5-5.1); SODIUM 139 MMOL/L (135-145); TOTAL CARBON DIOXIDE 20.7 MMOL/L (24-32); TOTAL PROTEIN 7.2 G/DL (6.4-8.2); eGFR 10 ML/MIN
[2022-11-01 04:08] LABS: HEMOGLOBIN A1C 7.4 % (4.5-6.2)
--- NOTE | 2022-11-01 04:14 | NUR ---
Received report from Katt TUCKER in ER at approximately 0315. All questions and concerns were addressed at that time. Pt arrived to the floor via gurney at approximately 0335 and was able to scoot self from gurney to hospital bed. Pt A&Ox4. Skin check was completed, Dart was completed, pt medications taken to be stored in pharmacy. Pt verbalized understanding for education provide on POC, staff, how to operate bed, call light, tv and need to call for assistance to use restroom. Call light within reach of patient. Will continue to monitor.
[2022-11-01] MEDS: docusate sod 100mg capsule PO SCH ×2 (08:00→19:27)
[2022-11-01] MEDS ORDERED: furosemide 40mg/4ml inj IV SCH (08:00)
[2022-11-01] MEDS: heparin, porcine 5000 units/ml vial SQ SCH ×2 (08:10→19:41)
--- NOTE | 2022-11-01 11:28 | NUR ---
Entered room and patient appeared to have difficulty breathing. Place pulse oximeter and read 84%. Patient awoke while attempting to place cannula and O2 sada to 90%. After placement of cannula O2 sada to 95%.
--- NOTE | 2022-11-01 13:08 | NUR ---
DM Consult: Pt hx T2DM A1C 7.4% takes Lantus 20 units HS and humalog sliding scale at home per EMR. Pt seen by RD for written/verbal DM diet ed; pt polite yet passive accepted written DM ed w/ RD contact information reports takes Glu meds per Rx but does not take meal coverage if Glu WNL only basal coverage. RD encouraged pt to contact dietitian's office if nutrition questions/concerns. Addendum: 11/01/22 at [address] Amended: Links added.
--- NOTE | 2022-11-01 14:52 | NUR ---
Patient frequently removes O2 nasal canula while sleeping. Desats into 80's.
[2022-11-02 06:00] VITALS: BP 147/83
[2022-11-02 06:22] LABS: BASOPHILS # (AUTO) 0.2 X10'3 (0-0.2); EOSINOPHILS # (AUTO) 0.2 X10'3 (0-0.9); EOSINOPHILS % (AUTO) 2.9 % (0-6); HEMATOCRIT 42.5 % (42.0-52.0); HEMOGLOBIN 13.6 g/dl (14.0-17.9); LYMPHOCYTES # (AUTO) 0.7 X10'3 (1.1-4.8); LYMPHOCYTES % (AUTO) 8.7 % (21-51); MEAN CORPUSCULAR HEMOGLOBIN 29.1 PG (27.0-31.0); MEAN PLATELET VOLUME 8.8 FL (7.4-10.4); MONOCYTES # (AUTO) 0.9 X10'3 (0-0.9); MONOCYTES % (AUTO) 11.3 % (2-12); NEUTROPHILS # (AUTO) 5.8 X10'3 (1.8-7.7); NEUTROPHILS % (AUTO) 75.1 % (42-75); PLATELET COUNT 140 X10'3 (140-440); RED BLOOD COUNT 4.67 X10'6 (4.70-6.10); WHITE BLOOD COUNT 7.7 X10'3 (4.5-11.0)
[2022-11-02 06:45] LABS: ALANINE AMINOTRANSFERASE 29 U/L (12-78); ALBUMIN 3.1 G/DL (3.4-5.0); ALBUMIN/GLOBULIN RATIO 0.8 (1.1-1.5); ALKALINE PHOSPHATASE 62 IU/L (46-116); ANION GAP 11 (8-16); ASPARTATE AMINO TRANSFERASE 15 U/L (10-37); BILIRUBIN,TOTAL 0.3 MG/DL (0.1-1.0); BLOOD UREA NITROGEN 99 MG/DL (7-18); CALCIUM 8.3 MG/DL (8.5-10.1); CHLORIDE 104 MMOL/L (99-107); CREATININE 5.51 MG/DL (0.60-1.10); GLUCOSE 118 MG/DL (70-104); MAGNESIUM 1.8 MG/DL (1.5-2.4); PHOSPHORUS 6.8 MG/DL (2.3-4.5); SODIUM 137 MMOL/L (135-145); TOTAL CARBON DIOXIDE 21.7 MMOL/L (24-32); TOTAL PROTEIN 7.1 G/DL (6.4-8.2); eGFR 11 ML/MIN
[2022-11-02] MEDS: heparin, porcine 5000 units/ml vial SQ SCH ×2 (07:50→20:46)
[2022-11-02] MEDS: furosemide 40mg/4ml inj IV SCH ×2 (09:05→17:52)
[2022-11-02] MEDS: docusate sod 100mg capsule PO SCH ×2 (09:09→20:45)
[2022-11-02 10:00] VITALS: BP 153/89
[2022-11-02 18:00] VITALS: BP 156/80
[2022-11-02 22:00] VITALS: BP 150/63
[2022-11-03] VITALS (7 sets, daily range): BP systolic 134–168; BP diastolic 82–114
[2022-11-03] MEDS: furosemide 40mg/4ml inj IV SCH ×4 (01:48→23:47)
--- NOTE | 2022-11-03 03:28 | NUR ---
Pt. is awake alert oriented in good spirits ate 100% of meal and additional snacks. States will be going for dialysis fistula placement in 2 days. Pt. is voiding per urinal large amts of yellow clear urine states is breathing better now. Bilateral lower extremity edema mom pitting right greater than left.. Pt. is on IV Lasix potassium replacement not needed at this time. Plan: keep right arm free for AV graft procedure,
[2022-11-03 06:15] LABS: BASOPHILS % (AUTO) 0.4 % (0-1); EOSINOPHILS # (AUTO) 0.3 X10'3 (0-0.9); EOSINOPHILS % (AUTO) 3.6 % (0-6); HEMATOCRIT 41.1 % (42.0-52.0); HEMOGLOBIN 13.4 g/dl (14.0-17.9); LYMPHOCYTES # (AUTO) 0.5 X10'3 (1.1-4.8); MEAN CORPUSCULAR HEMOGLOBIN 29.2 PG (27.0-31.0); MEAN CORPUSCULAR HGB CONC 32.7 g/dL (33.0-36.5); MEAN CORPUSCULAR VOLUME 89.4 FL (78-98); MEAN PLATELET VOLUME 8.9 FL (7.4-10.4); MONOCYTES # (AUTO) 0.5 X10'3 (0-0.9); MONOCYTES % (AUTO) 7.4 % (2-12); NEUTROPHILS # (AUTO) 5.7 X10'3 (1.8-7.7); NEUTROPHILS % (AUTO) 81.6 % (42-75); PLATELET COUNT 132 X10'3 (140-440); RED BLOOD COUNT 4.59 X10'6 (4.70-6.10); RED CELL DISTRIBUTION WIDTH 15.1 % (11.5-14.5)
[2022-11-03 06:32] LABS: ALANINE AMINOTRANSFERASE 25 U/L (12-78); ALBUMIN 2.8 G/DL (3.4-5.0); ALBUMIN/GLOBULIN RATIO 0.8 (1.1-1.5); ALKALINE PHOSPHATASE 57 IU/L (46-116); ANION GAP 13 (8-16); ASPARTATE AMINO TRANSFERASE 19 U/L (10-37); BILIRUBIN,TOTAL 0.3 MG/DL (0.1-1.0); BLOOD UREA NITROGEN 92 MG/DL (7-18); BUN/CREATININE RATIO 17.8 (10.0-20.0); CALCIUM 8.4 MG/DL (8.5-10.1); CHLORIDE 102 MMOL/L (99-107); CREATININE 5.18 MG/DL (0.60-1.10); MAGNESIUM 1.5 MG/DL (1.5-2.4); PHOSPHORUS 5.6 MG/DL (2.3-4.5); POTASSIUM 4.1 MMOL/L (3.5-5.1); SODIUM 140 MMOL/L (135-145); TOTAL CARBON DIOXIDE 25.4 MMOL/L (24-32); TOTAL PROTEIN 6.4 G/DL (6.4-8.2); eGFR 11 ML/MIN
[2022-11-03 06:57] LABS: GLUCOSE 180 MG/DL (70-104)
[2022-11-03] MEDS: docusate sod 100mg capsule PO SCH ×2 (08:00→21:11)
[2022-11-03] MEDS: heparin, porcine 5000 units/ml vial SQ SCH ×2 (08:00→21:12)
--- NOTE | 2022-11-03 09:24 | NUR ---
Spoke with Dr Tiwari, pt supposed to go to surgery today. Called Dr Conti #[phone], no answer/vm full. Called Offfice [phone], spoke with Laura who said to call again until he answers. Addendum: 11/03/22 at 0935 by Sonya Barron RN Dr Recio notes from 11/03 (today) state surgery scheduled for tomorrow; no dates listed for surgery. Spoke with Dr Tiwari, pt supposed to go to surgery today. Called OR, time is for 1330. Pt ate 100% breakfast. Called Dr Conti #[phone], no answer/vm full. Called Office [phone], spoke with Laura who said to call again until he answers. Called Dr Conti who stated ok for him to go to surgery after 1400. Called OR to confirm. Addendum: 11/03/22 at 1042 by Sonya Barron RN Called OR and spoke with shanta TUCKER and he reviewed new orders. Will give Sarah and steve now with pre-op checklist
[2022-11-03] MEDS ORDERED: metoclopramide 10mg tablet PO ONE (09:50)
--- NOTE | 2022-11-03 10:20 | NUR ---
Initial: Pt admit DX SOB, acute CHF, CKD V, hyperkalemia, hyperphosphatemia, HTN, and NPO this afternoon to have AV fistula placed though no immediate dialysis to start per MD notes. PO 100% avg initial heart healthy/carb controlled meals meeting protein needs and 91% kcal needs given stature. LBM 11/01 receiving routine colace. Will monitor for further nutrition intervention needs this admit. Rec: 1. continue heart healthy/carb controlled diet per MD 2. monitor for additional protein needs if to start HD vs additional food preferences for satiety 3. consider Phos binder w/ meals given hx CKD V pending AV fistula per MD discretion 4. routine bowel care 5. scaled wt this admit; subsequent daily wt Addendum: 11/03/22 at [address] Amended: Links added.
[2022-11-03] MEDS ORDERED: LIDOcaine 1% W/epiNEPHrine 1:100,000 20ml vial ONE ×2 (13:24→14:30)
[2022-11-03] MEDS ORDERED: BUPIVAcaine/PF 2.5mg/ml (0.25%) 10ml vial ONE (13:24)
[2022-11-03] MEDS ORDERED: heparin 10,000 units/1 ML INJ ONE (13:24)
[2022-11-03] MEDS ORDERED: fentaNYL/PF 50MCG/1 ML 2ML syringe ONE (14:08)
[2022-11-03] MEDS ORDERED: MIDAZolam 1 MG/ML 5ML VIAL ONE (14:09)
--- NOTE | 2022-11-03 15:19 | NUR ---
Paged Dr Tiwari: katharine 13B . Pt back on the unit, procedure cancelled. Pt in afib HR 130-140s. BP 134/85, HR 107 + C/O severe hand cramps- elytes WDL. No PRN available. Sonya [phone]
[2022-11-03] MEDS: metoprolol succinate 25mg (24-HOUR) SR. Tablet PO SCH (16:00)
[2022-11-03] MEDS: budesonide 0.5mg/2ml UD nebule IH SCH (20:35)
[2022-11-03] MEDS: albuterol 2.5 MG/3 ML nebule NEB SCH (20:35)
[2022-11-03] MEDS ORDERED: DEXTROSE 15 GM of carb/4 tabs (each vial/BOTTLE has 4 tablets) PO PRN ×2 (21:25)
[2022-11-03] MEDS ORDERED: glucagon, human recombinant 1mg kit SUBCUT PRN (21:25)
[2022-11-03] MEDS ORDERED: dextrose 50%-water 50ml dispensing syringe IV PRN ×2 (21:25)
[2022-11-03] MEDS ORDERED: MESSAGE TO PHARMACY PO ONE (21:25)
[2022-11-03] MEDS ORDERED: insulin Lispro (HumaLOG) vial - multi-dose SQ SCH (21:25)
[2022-11-04 02:23] VITALS: BP 147/88
[2022-11-04] MEDS: albuterol 2.5 MG/3 ML nebule NEB SCH ×3 (02:51→15:00)
[2022-11-04 06:00] VITALS: BP 126/83
[2022-11-04] MEDS ORDERED: famotidine 20mg tablet PO ONE (06:00)
--- NOTE | 2022-11-04 06:19 | NUR ---
Problems reprioritized. Patient report given, questions answered & plan of care reviewed with Mary Porter RN.
--- NOTE | 2022-11-04 06:20 | NUR ---
Patient in room ORTHO 4013. I have received report from Taylor and had the opportunity to ask questions and assume patient care.
[2022-11-04 07:13] LABS: BASOPHILS % (AUTO) 0.5 % (0-1); EOSINOPHILS # (AUTO) 0.3 X10'3 (0-0.9); HEMATOCRIT 45.2 % (42.0-52.0); HEMOGLOBIN 14.5 g/dl (14.0-17.9); LYMPHOCYTES # (AUTO) 0.6 X10'3 (1.1-4.8); MEAN CORPUSCULAR HGB CONC 32.1 g/dL (33.0-36.5); MEAN CORPUSCULAR VOLUME 90.2 FL (78-98); MEAN PLATELET VOLUME 9.2 FL (7.4-10.4); MONOCYTES # (AUTO) 1.1 X10'3 (0-0.9); MONOCYTES % (AUTO) 16.3 % (2-12); NEUTROPHILS # (AUTO) 4.6 X10'3 (1.8-7.7); NEUTROPHILS % (AUTO) 70.2 % (42-75); PLATELET COUNT 134 X10'3 (140-440); RED BLOOD COUNT 5.01 X10'6 (4.70-6.10); RED CELL DISTRIBUTION WIDTH 15.2 % (11.5-14.5); WHITE BLOOD COUNT 6.6 X10'3 (4.5-11.0)
[2022-11-04 07:25] LABS: ALANINE AMINOTRANSFERASE 12 U/L (12-78); ALBUMIN 2.8 G/DL (3.4-5.0); ALBUMIN/GLOBULIN RATIO 0.7 (1.1-1.5); ALKALINE PHOSPHATASE 54 IU/L (46-116); ANION GAP 14 (8-16); ASPARTATE AMINO TRANSFERASE 15 U/L (10-37); BILIRUBIN,TOTAL 0.4 MG/DL (0.1-1.0); BLOOD UREA NITROGEN 85 MG/DL (7-18); BUN/CREATININE RATIO 16.5 (10.0-20.0); CALCIUM 8.8 MG/DL (8.5-10.1); CHLORIDE 103 MMOL/L (99-107); CREATININE 5.14 MG/DL (0.60-1.10); GLUCOSE 139 MG/DL (70-104); MAGNESIUM 1.7 MG/DL (1.5-2.4); PHOSPHORUS 6.4 MG/DL (2.3-4.5); POTASSIUM 4.1 MMOL/L (3.5-5.1); SODIUM 142 MMOL/L (135-145); TOTAL CARBON DIOXIDE 25.4 MMOL/L (24-32); TOTAL PROTEIN 6.7 G/DL (6.4-8.2); eGFR 12 ML/MIN
[2022-11-04] MEDS: budesonide 0.5mg/2ml UD nebule IH SCH (07:41)
[2022-11-04] MEDS ORDERED: atorvastatin 20mg tablet PO SCH (08:00)
[2022-11-04] MEDS ORDERED: aspirin 81mg, enteric-coated 1 TAB TABLET.DR PO SCH (08:00)
[2022-11-04] MEDS ORDERED: isosorbide dinitrate 30mg tablet PO SCH (08:00)
[2022-11-04] MEDS: docusate sod 100mg capsule PO SCH (08:23)
[2022-11-04] MEDS: furosemide 40mg/4ml inj IV SCH (08:24)
[2022-11-04] MEDS: metoprolol succinate 25mg (24-HOUR) SR. Tablet PO SCH (08:24)
[2022-11-04 10:00] VITALS: BP 137/84
--- NOTE | 2022-11-04 12:29 | NUR ---
PAGER ID: [phone] MESSAGE: Jeovany Green in [id number] - Called OR and pt is not on schedule today. They know nothing about his fistula placement. -Mary [phone]
--- NOTE | 2022-11-04 12:45 | NUR ---
PAGER ID: [phone] MESSAGE: Jeovany Green in [id number] - Laci said he wont do it until next week. Can we feed him? -Mary [phone]
[2022-11-04] MEDS ORDERED: FURO80TA87 PO (13:09)
[2022-11-04] MEDS ORDERED: METO-411 PO (13:09)
[2022-11-04 14:00] VITALS: BP 124/80
[2022-11-04] MEDS ORDERED: losartan 50mg tablet PO SCH (14:00)
[2022-11-04] MEDS ORDERED: hydrALAZINE 25 MG tablet PO SCH (20:00)
[2022-11-04] MEDS ORDERED: insulin glargine (Lantus) pen - multi-dose SQ SCH (21:00)
[2022-11-05] MEDS ORDERED: amLODIPine 2.5mg tablet PO SCH (08:00)
[2022-11-05] MEDS ORDERED: ezetimibe 10mg tablet PO SCH (08:00)
== END 2022-11-04 15:41 | disposition home or self-care (01) | DRG 194 ==
LOC: ER 13:25 → ED HOLD 15:44 → ORTHO 4S 11-01 03:34
PROVIDERS: ADMIT Family Medicine; ATTEND Family Medicine
DX: I13.2 Hypertensive heart and chronic kidney disease with heart failure and with stage 5 chronic kidney disease, or end stage renal disease (principal); N17.9 Acute kidney failure, unspecified; I27.20 Pulmonary hypertension, unspecified; E11.22 Type 2 diabetes mellitus with diabetic chronic kidney disease; E83.39 Other disorders of phosphorus metabolism; N18.5 Chronic kidney disease, stage 5; I50.33 Acute on chronic diastolic (congestive) heart failure; E78.5 Hyperlipidemia, unspecified; M10.9 Gout, unspecified; E87.5 Hyperkalemia; I48.0 Paroxysmal atrial fibrillation; K21.9 Gastro-esophageal reflux disease without esophagitis; I25.10 Atherosclerotic heart disease of native coronary artery without angina pectoris; J44.9 Chronic obstructive pulmonary disease, unspecified; N27.1 Small kidney, bilateral; R09.02 Hypoxemia; Z79.4 Long term (current) use of insulin; I25.2 Old myocardial infarction; Z79.51 Long term (current) use of inhaled steroids; Z79.899 Other long term (current) drug therapy; Z86.73 Personal history of transient ischemic attack (TIA), and cerebral infarction without residual deficits; Z95.1 Presence of aortocoronary bypass graft
CPT/HCPCS: 36415; 71046; 76770; 80053; 81001; 82570; 82948; 83036; 83735; 83880; 84100; 84156; 84300; 84484; 84550; 85025; 85610; 85730; 87081; 87207; 93005; 93306; 94640; 94760; 96374; 99285; A4215; A4615; A4618; A7000; G0378; J1644; J1815; J1940; J2250; J3010; J3490; J7040; J7120

== ENCOUNTER 2024-11-21 15:26 | Inpatient (IN) | payer MEDICAID ==
[~2024-11-21] VITALS: Ht 172.7 cm; Wt 127.6 kg
[2024-11-21] VITALS (17 sets, daily range): BP systolic 81–111; BP diastolic 53–72; PULSE 70–115; RESP 15–30; TEMP 97.4–98; O2SAT 93–99
[~2024-11-21 15:26] MED LIST changes: +AMLO2.5T5 PO; -AMLO5TAB PO; +APIX5TAB3 PO; -ATOR20TA66 PO; +ATOR40TA72 PO; -CLOP75TA34 PO; +DILT120C19 PO; +ERGO500093 PO; +EZET10TA48 PO; +FEBU40TA6 PO; +FURO-150 PO; +HYDR50TA46 PO; +IRBE150T34 PO; -ISOS30TA84 PO; +ISOS30TA9 PO; -LOSA50TA64 PO; +MOME13HF11 IH; +TENA30TA PO
--- NOTE | 2024-11-21 15:53 | ELECTROCARDIOGRAPH REPORT ---
[facility] Test Date: 2024-11-21 Test Time: 15:51:00 Pat Name: GALILEO CABEZAS Department: [facility]-ER Patient ID: [facility]-[id number] Room: Gender: M Surgical Pathologist: : 1960 Requested By: AXEL COREY Order Number: [id number] Reading MD: Dr. Isael Boyce Measurements Intervals [place] Rate: 85 P: 0 WA: 0 QRS: -25 QRSD: 94 T: 14 QT: 346 QTc: 412 Interpretive Statements Atrial fibrillation Inferior infarct, old Electronically Signed On 11-21-2024 17:20:[address] Isael Boyce Please click the below link to view image of tracing.
--- NOTE | 2024-11-21 16:07 | Physician Documentation ---
History of Present Illness ~ Chief Complaint: Shortness of Breath Stated Complaint: SOB Time Seen by MD: 15:46 Primary Medical Doctor: [facility] 64-year-old male history of ESRD Monday dialysis, COPD presenting with shortness of breath. He reports that he has been short of breath and coughing over the last 48 hours. He was so bad that he was unable to go to dialysis today. He reports feeling tight and wheezy similar to prior episodes of COPD exacerbation At [facility] he received azithromycin, furosemide 40 mg, methylprednisone, ceftriaxone 2 g azithromycin 500 mg methylprednisone 40 minute Medication Reconciliation Allergies: Coded Allergies: No Known Allergies (Unverified , 08/16/22) Scheduled Amlodipine Besylate (Amlodipine Besylate), 1 TAB PO DAILY, (Reported) Aspirin (Aspirin EC), 1 TABLET PO DAILY, (Reported) Atorvastatin Calcium (Atorvastatin Calcium), 1 TAB PO DAILY, (Reported) Ergocalciferol (Vitamin D2) (Vitamin D2), 1 CAP PO Q7D, (Reported) Ezetimibe (Ezetimibe), 1 TAB PO DAILY, (Reported) Febuxostat (Febuxostat), 1 TAB PO DAILY, (Reported) Hydralazine HCl (Hydralazine HCl), 1 TAB PO BID, (Reported) Insulin Glargine,Hum.rec.anlog (Basaglar Kwikpen U-100), 20 UNITS SQ HS, (Reported) Insulin Lispro (Humalog), 1 UNIT SQ SLIDING SCALE, (Reported) Irbesartan (Irbesartan), 1 TAB PO DAILY, (Reported) Isosorbide Dinitrate* (Isordil*), 1 TAB PO DAILY, (Reported) Metoprolol Succinate (Metoprolol Succinate), 1 TAB PO DAILY Mometasone/Formoterol (Dulera 200 Mcg/5 Mcg Inhaler), 2 PUFFS IH BID, (Reported) Scheduled PRN Albuterol (Albuterol), 1-2 PUFFS PO Q4H PRN for SOB or wheezing, (Reported) Past Medical History Past Medical History: CVA/TIA/Stroke, Coronary Artery Disease, Hypertension, Myocardial Infarction, GERD, Chronic Kidney Disease, Diabetes Past Surgical History: coronary bypass surgery Other Past Surgical History: Four-way bypass Patient History: Patient reports no known family medical history. Alcohol Use: None Drug Use: none Lives In: Home Review of Systems All Other Systems at this time: Reviewed and Negative Constitutional: Denies: fever Physical Exam Vital Signs: Temperature: 98.3, Source: Temporal, Heart Rate: 88, Respiratory Rate: 26, BP: 122/66, Pulse Oximetry: 99, Weight: 119.300 Oxygen Flow Rate: 15.0 Physical Exam Severe distress Respiratory diffuse wheezes, tachypneic, no crackles Cardiac no murmur Abdomen nontender Lower extremity 1+ pitting edema Progress Progress Note 5:12 p.m. I discussed the case with hospitalist who agrees to accept for admission. I also discussed the case with Dr. Brush magnetic prospecting operator who agrees to set up emergent dialysis Results/Orders Results/Orders Orders - AXEL COREY MD Chest,Single View (11/21/24 15:41) Monitor (11/21/24 15:41) Saline Lock (11/21/24 15:41) Oxygen (11/21/24 15:41) PBNP (11/21/24 15:41) Electrocardiogram (11/21/24 15:41) CMP (11/21/24 15:41) Hs Troponin I W Calculations (11/21/24 18:41) Bipap/Cpap (11/21/24 ) Abg (Arterial Blood Gas) (11/21/24 ) Page Hospitalist (11/21/24 16:54) Fill Out Med Reconciliation (11/21/24 16:54) Culture Blood (11/21/24 16:55) * Rt Notification Q1H (11/21/24 16:59) Hgb A1c (11/21/24 15:53) Lipid Panel (11/21/24 15:53) Completed Orders - AXEL COREY MD Chest,Single View (11/21/24 15:41) Cbc/Diff (11/21/24 15:41) Electrocardiogram (11/21/24 15:41) Hs Troponin I W Calculations (11/21/24 15:41) Hs Troponin I W Calculations (11/21/24 17:41) Lacticsepsis (11/21/24 16:55) Ceftriaxone 2gm/D5w 50ml Bag (Rocephin 2 (11/21/24 16:55) Albuterol 2.5mg/3ml Nebule (Proventil 2. (11/21/24 17:00) Medications Received in ER Medications (Trade) Dose Ordered Sig/Ryan Route PRN Reason Start Time Stop Time Status Last Admin Dose Admin (Proventil 2.5 MG/3ML nebule) 2.5 mg ONCE ONCE NEB 11/21/24 17:00 11/21/24 17:03 DC 11/21/24 17:20 2.5 MG Vital Signs 11/21/24 11/21/24 11/21/24 11/21/24 15:42 16:08 16:48 16:49 Temp 98.3 Pulse 88 80 81 Resp 26 22 24 24 22 B/P (MAP) 122/66 99/59 (72) Pulse Ox 99 93 94 O2 Flow Rate 15.0 FiO2 32 11/21/24 17:21 Pulse 88 Resp 20 Pulse Ox 96 O2 Delivery BiPAP+ FiO2 32 Laboratory Tests Test 11/21/24 15:53 11/21/24 16:47 11/21/24 17:09 White Blood Count 23.2 H Red Blood Count 3.72 L Hemoglobin 11.4 L Hematocrit 36.3 L Mean Corpuscular Volume 97.5 Mean Corpuscular Hemoglobin 30.8 Mean Corpuscular Hemoglobin Concent 31.5 L Red Cell Distribution Width 16.3 H Platelet Count 184 Mean Platelet Volume 8.7 Neutrophils (%) (Auto) 97.0 H Lymphocytes (%) (Auto) 1.0 L Monocytes (%) (Auto) 1.5 L Eosinophils (%) (Auto) 0 Basophils (%) (Auto) 0.5 Neutrophils # (Auto) 22.5 H Lymphocytes # (Auto) 0.2 L Monocytes # (Auto) 0.4 Eosinophils # (Auto) 0.0 Basophils # (Auto) 0.1 CBC Comment Sodium Level 138 Potassium Level 6.6 *H Chloride Level 102 Carbon Dioxide Level 21.3 L Anion Gap 15 Blood Urea Nitrogen 69 H Creatinine 7.26 H Estimated GFR/1.73 m2 8 BUN/Creatinine Ratio 9.5 L Glucose Level 199 H Calcium Level 9.1 Total Bilirubin 0.4 Aspartate Amino Transf (AST/SGOT) 11 Alanine Aminotransferase (ALT/SGPT) 21 Alkaline Phosphatase 70 Troponin I High Sensitivity 197 *H 190 *H Pro-B-Type Natriuretic Peptide > 63103 H Total Protein 7.0 Albumin 3.3 L Globulin 3.7 Albumin/Globulin Ratio 0.9 L Chemistry Comments Blood Gas Specimen Type Arterial Blood Gas Puncture Site Rr O2 Saturation 92.6 L Arterial Blood pH (Temp corrected) 7.207 *L Arterial Blood pCO2 (Temp correct) 50.4 H Arterial Blood pO2 (Temp corrected) 73.0 L Arterial Blood PO2/FiO2 Ratio 2.28 Arterial Blood HCO3 19.6 L Arterial Blood Base Excess -8.3 L Arterial Blood Oxyhemoglobin 92.2 L Arterial Blood Carboxyhemoglobin 0.3 L Arterial Blood Methemoglobin 0.1 Arterial Blood Deoxyhemoglobin 7.4 H Holger Test Positive Blood Gas Hemoglobin 11.5 L Blood Gas Temperature 37.0 Blood Gas Modality Mask - bipap FiO2 32.0 Blood Gas Critical Value Called To Sumanth martínez Lactic Acid Level 1.3 Troponin I High Sens Percent Delta 3 Troponin I Hi Sens Absolute Change -7 Microbiology Date/Time Source Procedure Growth Status 11/21/24 17:09 Blood Hand Right Blood Culture - Preliminary NEGATIVE (LESS THAN 24 HOURS) Resulted EKG/XRAY/CT/US/VASC/MRI EKG : Additional Comment EKG independently interpreted by myself time 3:51 p.m. indication shortness of breath atrial fibrillation rate 85 normal axis normal intervals no ST or T-wave abnormalities Medical Decision Making Additional info obtained from: old records Additional Infomation CHF, COPD, pneumonia Departure Disposition: ADMITTED INPATIENT Admitted to Inpatient Unit: to hospitalist Impression: Primary Impression: Acute on chronic diastolic heart failure Additional Impressions: Acute exacerbation of chronic obstructive airways disease Respiratory failure Qualified Codes: J96.01 - Acute respiratory failure with hypoxia; J96.02 - Acute respiratory failure with hypercapnia Hyperkalemia Additional Impression Text History of COPD, ESRD on dialysis presenting for 1 day of cough and shortness of breath. Did not receive his daily dialysis today due to symptoms. Outside hospital he was evaluated and treated for COPD exacerbation and potential fluid overload. He was given Solu-Medrol and Lasix and IV antibiotics. His potassium is elevated 6.6 but his EKG shows no acute changes. Discussed case with Nephrology who agree with plan for emergent dialysis. Hospitalist consulted agrees to manage patient Referrals: NO PRIMARY CARE PROVIDER (PCP) Critical Care Note Total Time (mins): 30 Critical Care Note The very real possibility of a deterioration of this patient's condition required the highest level of my preparedness for sudden, emergent intervention. I provided critical care services, which included medication orders, frequent reevaluations of the patient's condition and response to treatment, ordering and reviewing test results, and discussing the case with various consultants. Excludes time spent performing separately billable procedures. The critical care time associated with the care of the patient was 30 minutes in the management of acute hypoxic respiratory failure requiring rescue BiPAP Signature Scribe Signature: shereen Attestation: AXEL Laurent MD November 21, 2024 16:07
[2024-11-21 16:27] LABS: BASOPHILS # (AUTO) 0.1 X10'3 (0-0.2); BASOPHILS % (AUTO) 0.5 % (0-1); EOSINOPHILS % (AUTO) 0 % (0-6); HEMATOCRIT 36.3 % (42.0-52.0); HEMOGLOBIN 11.4 g/dl (14.0-17.9); LYMPHOCYTES # (AUTO) 0.2 X10'3 (1.1-4.8); MEAN CORPUSCULAR HEMOGLOBIN 30.8 PG (27.0-31.0); MEAN CORPUSCULAR HGB CONC 31.5 g/dL (33.0-36.5); MEAN CORPUSCULAR VOLUME 97.5 FL (78-98); MEAN PLATELET VOLUME 8.7 FL (7.4-10.4); MONOCYTES # (AUTO) 0.4 X10'3 (0-0.9); MONOCYTES % (AUTO) 1.5 % (2-12); NEUTROPHILS # (AUTO) 22.5 X10'3 (1.8-7.7); PLATELET COUNT 184 X10'3 (140-440); RED BLOOD COUNT 3.72 X10'6 (4.70-6.10); RED CELL DISTRIBUTION WIDTH 16.3 % (11.5-14.5); WHITE BLOOD COUNT 23.2 X10'3 (4.5-11.0)
--- NOTE | 2024-11-21 16:27 | RADIOLOGY REPORT ---
CHEST RADIOGRAPH Indication: CP Technique: Single frontal view of the chest was obtained COMPARISON: None FINDINGS: Lines and Tubes: Median sternotomy. Lungs: Multifocal airspace disease. Pleura: Small left pleural effusion. No pneumothorax. Cardiomediastinal contours: Cardiomegaly. Bones: Unremarkable IMPRESSION: Pulmonary edema
[2024-11-21 16:48] LABS: ALANINE AMINOTRANSFERASE 21 U/L (12-78); ALBUMIN 3.3 G/DL (3.4-5.0); ALBUMIN/GLOBULIN RATIO 0.9 (1.1-1.5); ALKALINE PHOSPHATASE 70 IU/L (46-116); ANION GAP 15 (8-16); ASPARTATE AMINO TRANSFERASE 11 U/L (10-37); BILIRUBIN,TOTAL 0.4 MG/DL (0.1-1.0); BLOOD UREA NITROGEN 69 MG/DL (7-18); BUN/CREATININE RATIO 9.5 (10.0-20.0); CALCIUM 9.1 MG/DL (8.5-10.1); CHLORIDE 102 MMOL/L (99-107); CREATININE 7.26 MG/DL (0.60-1.10); GLUCOSE 199 MG/DL (70-104); SODIUM 138 MMOL/L (135-145); TOTAL CARBON DIOXIDE 21.3 MMOL/L (24-32); eCRCL 10 ML/MIN; eGFR 8 ML/MIN
[2024-11-21 16:52] LABS: ABG BASE EXCESS -8.3 mmol/L (-2.0-3.0); ABG HCO3 19.6 mmol/L (21.0-28.0); ABG OXYGEN SATURATION 92.6 % (94.0-98.0); ABG PCO2 (T) 50.4 mmHg (35.0-48.0); ABG PH (T) 7.207 (7.350-7.450); ALLEN'S TEST POSITIVE; FCOHb 0.3 % (0.5-1.5); FHHb 7.4 % (0.0-5.0); FMetHb 0.1 % (0.0-1.5); FO2Hb 92.2 % (94.0-98.0); MODE MASK - BIPAP; TOTAL HEMOGLOBIN 11.5 G/dl (13.5-17.5)
[2024-11-21] MEDS ORDERED: CefTRIAXone 2gm/D5W 50ml BAG 50 ML IV ONE (16:55)
[2024-11-21 17:10] LABS: POTASSIUM 6.6 MMOL/L (3.5-5.1)
[2024-11-21] MEDS ORDERED: normal saline 1000ml 100 ML IV PRN (17:20)
[2024-11-21] MEDS: albuterol 2.5 MG/3 ML nebule NEB ONE (17:20)
[2024-11-21] MEDS ORDERED: mag hydrox/Alum hydrox/simeth 30ml oral suspension PO PRN (17:45)
[2024-11-21] MEDS ORDERED: magnesium sulf-water 4G/100mL 100 ML IV PRN (17:45)
[2024-11-21] MEDS ORDERED: magnesium hydroxide 30ml (MOM) UD suspension PO PRN (17:45)
[2024-11-21] MEDS ORDERED: potassium Cl 20 mEq SR tablet PO PRN ×2 (17:45)
[2024-11-21] MEDS ORDERED: morphine 2 MG/ML inj. syringe IV PRN (17:45)
[2024-11-21] MEDS ORDERED: potassium Cl 40MEQ/1/2NS 520ml 520 ML IV PRN (17:45)
[2024-11-21] MEDS ORDERED: acetaminophen 325mg tablet PO PRN ×2 (17:45)
[2024-11-21] MEDS ORDERED: HYDROmorphone inj. 0.5 MG/0.5 ML DISP.SYRIN IV PRN (17:45)
[2024-11-21] MEDS ORDERED: magnesium Cl slow-release 64mg tablet PO PRN (17:45)
[2024-11-21] MEDS ORDERED: magnesium sulf-water 2g/50mL 50 ML IV PRN (17:45)
[2024-11-21] MEDS ORDERED: ondansetron/PF 4mg/2ml inj IV PRN (17:45)
[2024-11-21] MEDS ORDERED: albuterol 2.5 MG/3 ML nebule NEB PRN (17:55)
[2024-11-21 17:58] LABS: PRO BRAIN NATRIURETIC PEPTIDE > 30000 PG/ML (0-125)
[2024-11-21] MEDS ORDERED: albuterol 2.5 MG/3 ML nebule NEB ONE (18:00)
[2024-11-21] MEDS: dextrose 50%-water 50ml dispensing syringe IV ONE (18:00)
[2024-11-21] MEDS ORDERED: sodium polystyrene sulfonate 15gm/60ml oral suspension PO ONE (18:00)
[2024-11-21] MEDS ORDERED: CALCIUM GLUC 1gm/50ml NACL,iso 50 ML IV PRN (18:00)
[2024-11-21] MEDS ORDERED: insulin regular, human 10 units/0.1 ml syringe IV ONE (18:00)
[2024-11-21] MEDS: PERFLUTREN PROTEIN-A MICROSPHR (Optison) 0.22 MG/ML 3ML VIAL IV ONE (18:09)
--- NOTE | 2024-11-21 18:27 | HISTORY AND PHYSICAL-Residence ---
History & Physical Providers to CC Resident Creating Document: GHANSHYAM MASTERSON, DREW ~ History of Present Illness Primary Medical Doctor: [facility] Reason for Admit\Complaint: Shortness of breaths History of Present Illness 62-year-old male with past medical history of chronic kidney disease, ESRD on maintenance hemodialysis on Monday, , Monday., COPD, coronary disease with the NSTEMI(two months ago), CABG x4(in 2006), hypertension, hyperlipidemia, type 2 diabetes mellitus, atrial fibrillation presented to the ER from [facility] with shortness of breathe. He endorses shortness of breath, class four, associated with orthopnea and PND, was there for the past three months but got aggravated for the past 1-2 week. He was here for the same problem two weeks back. He endorses fatigue, decreased energy levels aggravated for the past two weeks. He complained of dry cough for the past one week. He is with wheezing for the past few days. Endorses chest tightness, swelling of the leg, abrasion over the right leg. He Is getting the paracentesis once in a month for the liver problem . He complained of sleep disturbances. He is not getting any urine. His appetite and bowel is normal. He had a bowel movement on yesterday. He received ceftriaxone, Zithromax, methylprednisolone, breathing treatment at [facility]. He denied chest pain, fever, abdominal pain, headache, dizziness, palpitations, abdominal distention. Discussed code status with him& he wants to be in full code Allergies: Coded Allergies: No Known Allergies (Unverified , 11/21/24) Home Medications Home Medications Active Metoprolol Succinate 100 Mg Tab.sr.24h 1 Tab PO DAILY 30 Days Reported Vitamin D2 (Ergocalciferol (Vitamin D2)) 1,250 Mcg Capsule 1 Cap PO Q7D PT TAKES ON MONDAYS Atorvastatin Calcium 40 Mg Tablet 1 Tab PO DAILY Isordil* (Isosorbide Dinitrate) 30 Mg Tablet 1 Tab PO DAILY Febuxostat 40 Mg Tablet 1 Tab PO DAILY Ezetimibe 10 Mg Tablet 1 Tab PO DAILY Amlodipine Besylate 2.5 Mg Tablet 1 Tab PO DAILY Irbesartan 150 Mg Tablet 1 Tab PO DAILY Dulera 200 Mcg/5 Mcg Inhaler (Mometasone/Formoterol) 13 Gm Hfa.aer.ad 2 Puffs IH BID Hydralazine HCl 50 Mg Tablet 1 Tab PO BID Humalog (Insulin Lispro) 100 Unit/1 Ml Insuln.pen 1 Unit SQ SLIDING SCALE Albuterol 17 Gm Aerosol 1-2 Puffs PO Q4H PRN Aspirin EC (Aspirin) 81 Mg Tablet.dr 1 Tablet PO DAILY Basaglar Kwikpen U-100 (Insulin Glargine,Hum.rec.anlog) 100 Unit/1 Ml Insuln.pen 20 Units SQ HS Past Medical History Past Medical History ESRD on maintenance hemodialysis COPD Acute on chronic, diastolic CHF Peripheral artery disease Type 2 diabetes mellitus Hypertension AFib Diabetic nephropathy Cerebrovascular accident Al's palsy Obesity with a BMI 40 Past Surgical History Surgical History Comment Quadruple CABG in 2006. Family History Family History: Patient reports no known family medical history. Past Social History Social History Comment Single. Never smoked, no alcohol or drug use. Does not use any assistive device for ambulation. DANICA is his mother Olga Marx, 78 years old, lives in [place], [place] Smoking: Quit less than 1 year Alcohol Use: None Drug Use: None Lives In: Home ROS Constitutional: Reports: malaise, weakness Eyes: Reports: no symptoms reported ENT: Reports: no symptoms reported Respiratory: Reports: cough, orthopnea, shortness of breath, SOB with exertion, SOB at rest, wheezing Cardiovascular: Reports: edema Gastrointestinal: Reports: abdomen distended Genitourinary: Reports: decreased urine output Male Genitalia: Reports: no symptoms reported Neurological: Reports: no symptoms reported Musculoskeletal: Reports: no symptoms reported Allergic/Immunologic: Reports: no symptoms reported Hematologic/Lymphatic: Reports: no symptoms reported Endocrine: Reports: no symptoms reported Psychiatric: Reports: no symptoms reported Exam Vitals: Vital Signs Date Time Temp Pulse Resp B/P (MAP) Pulse Ox O2 Delivery O2 Flow Rate FiO2 11/21/24 16:49 24 11/21/24 16:48 81 94 11/21/24 16:08 32 11/21/24 15:42 98.3 15.0 General: General: Alert and oriented gentleman. Dyspneic, tachypneic and in mild respiratory distress. On BiPAP HEENT: Atraumatic Neck: Supple. No JVDs or bruits. Chest: Diminished breath sounds in bilateral infrascapular areas. Bilateral expiratory wheeze is present in and suprascapular area, interscapular area. Tachypneic. Cardiovascular: Distant heart sounds. Regular rate and rhythm. S1-S2. No murmurs appreciated. Abdomen: Soft, nontender, no HSM. Extremities: 2+ pitting edema bilateral. Clubbing is present. No cyanosis. AV fistula seen on left upper extremity. heard continuous missionary murmur Central Nervous System: Cranial nerves and motor system and sensory system is intact. Musculoskeletal: Unremarkable. Skin: Brawny edema over the both lower legs with abrasion over the right leg Diagnostic Data Last Recorded Lab Results: 11/21/24 1553 11/21/24 1553 Advance Care Planning Advanced Care planning: Add on additional 30 min Additional Plan Acute on chronic hypoxemic hypercapnic respiratory failure Tachypneic with a hypotension Initially on high-flow oxygen of 15 L but he could not able to tolerate and then he is On BiPAP with FiO2 of 32, inspiratory airway pressure 12, expiratory pressure five and tidal volume 450. The patient is comfortable after he is on BiPAP. Monitoring pCO2 Acute exacerbation of advanced COPD WBC counts were elevated, 23 Patient is on albuterol ipratropium nebulization On methylprednisolone 60 mg q.12h On ceftriaxone &azithromycin to cover Gram-positive and Gram-negative, and anaerobes. Receiving Incentive spirometry q.2h ESRD Hyperkalemia Potassium is 6.6 Globin is 11.4 Serum creatinine is 7.6 elevation from the baseline of [address] Brush and he is on board and patient is getting the dialysis per Dr. Brush Contacted Dr. Brush regarding hyperkalemia and he is of kind of opinion that patient potassium maybe settled with hemodialysis Acute on chronic CHF Pulmonary edema Received Lasix 80 [place] [address] Chest x-ray showing bilateral pleural effusion suggestive of pulmonary edema May improve with hemo dialysis Troponinemia likely secondary to type 2 [place] Troponin levels are in 190 about trend is decreased Patient does not have any chest pain and he is with ESRD EKG does not showed ST-elevation, heart rate is 90 which is irregularly irregular, no acute changes Type 2 diabetes mellitus On insulin glargine 20 units, insulin lispro sliding scale at home Ordered A1c Glucose is in 190s Hypertension On hydralazine 50 mg p.o. b.i.d and irbesartan 150 mg p.o. once daily, amlodipine 2.5 mg Did not started on home medications as the blood pressures are in 90s and Handed for to the night resident to monitor blood pressure and to restart these medications if blood pressure is shooting up. CAD status post CABG On home medications of aspirin 81 mg, atorvastatin 40 mg Started aspirin, atorvastatin 40 mg Hyperlipidemia On atorvastatin 40 mg, ezetimibe 10 Ordered lipid panel we will follow up with results. Started atorvastatin 40 mg Atrial fibrillation Rate controlled On metoprolol succinate 100 mg Per patient he is using the Eliquis. We will start the medications after medication reconciliation. Code status: Full code Diet: Renal diet DVT prophylaxis: SCDs Ghanshyam Masterson IM resident Date of Service: November 21, 2024 Billing Provider: VEDA THOMAS MD Common Visit Codes: [id number] INP/OBS CARE (HIGH) Secondary Visit Codes: 90290-[id number] CARE PLAN 30 MINUTES GHANSHYAM MASTERSON, DREW November 21, 2024 18:27 VEDA THOMAS MD November 22, 2024 21:33
[2024-11-21] MEDS ORDERED: glucagon, human recombinant 1mg kit SUBCUT PRN ×2 (19:15→19:20)
[2024-11-21] MEDS: aspirin 81mg, enteric-coated 1 TAB TABLET.DR PO SCH (19:15)
[2024-11-21] MEDS: albuterol 2.5 MG/3 ML nebule NEB SCH (19:18)
[2024-11-21] MEDS ORDERED: dextrose 50%-water 50ml dispensing syringe IV PRN ×2 (19:20)
[2024-11-21] MEDS ORDERED: DEXTROSE 15 GM of carb/4 tabs (each vial/BOTTLE has 4 tablets) PO PRN ×2 (19:20)
[2024-11-21 19:34] LABS: CHOL/HDL RATIO 2.2 (0.00-4.99); CHOLESTEROL 138 MG/DL (0-200); HDL CHOLESTEROL 62 MG/DL (35-60); LDL CHOLESTEROL 64 MG/DL (50-100); TRIGLYCERIDES 54 MG/DL (20-135)
[2024-11-21 19:39] LABS: HEMOGLOBIN A1C 5.9 % (4.5-6.2)
[2024-11-21] MEDS: furosemide 40mg/4ml inj IV ONE (19:41)
[2024-11-21] MEDS: SODIUM ZIRCONIUM CYCLOSILICATE 10 GM POWD.PACK PO ONE (19:41)
[2024-11-21] MEDS: docusate sod 100mg capsule PO SCH (19:41)
[2024-11-21] MEDS: K and/or MAG REPLACEMENT MC SCH (19:56)
[2024-11-21] MEDS: atorvastatin 20mg tablet PO SCH (20:16)
[2024-11-21] MEDS: methylPREDNISolone sod succ/PF 40mg inj. IV SCH (20:16)
--- NOTE | 2024-11-21 20:41 | PROGRESS NOTE ---
Progress Note Dictate Providers to CC ~ Progress Note: Referring Physician: Hospitalist Reason for Consultation: SRD-HD management Chief Complaint: worsening shortness of breath History of Present Illness: he is a 64-year-old man with a history of ESRD-HD dialyzes on Monday schedule, was scheduled for dialysis today but he did not go to his usual dialysis he came to the ED complaining of shortness of breath worsening over the past several days with cough and no fever, denies sputum production, he was admitted to the hospital for similar symptoms earlier this month, we have been asked to manage his dialysis while he is in the hospital, chest x-ray shows pulmonary edema, we will plan on emergent dialysis tonight, and again in the a.m. Review of Systems: he denies chest pain, palpitations, headache, dizziness, abdominal pain, fevers, nausea vomiting constipation diarrhea Antibiotic Ordered?: Yes Objective Vitals Vital Signs Date Time Temp Pulse Resp B/P (MAP) Pulse Ox O2 Delivery O2 Flow Rate FiO2 11/21/24 20:00 97 19 98/65 (76) 95 32 11/21/24 19:59 BiPAP+ 11/21/24 15:42 98.3 15.0 General: Well appearing, well nourished, in no distress. Oriented x 3, Neck: Supple, without JVD Heart: Regular rate and rhythm, no murmur Lungs: Clear to auscultation and percussion Abdomen: Bowel sounds normal, no tenderness, organomegaly, masses, or hernia Extremities: No cyanosis, no edema, peripheral pulses intact Neurologic: Sensation to touch, normal. DTRs normal moves all extremities spontaneously. Lab Results: 11/21/24 1553 11/21/24 1553 Problem\Assessment\Plan Problems/Diagnosis: (1) ESRD (end stage renal disease) on dialysis Assessment & Plan: ESRD-HD, Monday schedule will dialyze today for 3 hours, try to get 3 L of UF off today as tolerated, will plan on dialysis again tomorrow (2) Electrolyte abnormality (3) Pulmonary edema due to fluid overload Assessment & Plan: Most consistent with ESRD-HD and inadequate dialysis, would expect considerable improvement as we dialyze him more while he is in the hospital, plan to dialyze today, tomorrow and may begin on Monday for additional UF (4) Acidemia Assessment & Plan: Would expect considerable improvement with dialysis today, adjust dialysis prescription (5) Anemia Assessment & Plan: Anemia-CKD, will give EPO with dialysis, hemoglobin goal between 10 and 11.5, recommend checking iron stores and replace with IV iron only SADA COSTELLO III DO November 21, 2024 20:41
[2024-11-21] MEDS ORDERED: insulin glargine (Lantus) pen - multi-dose SQ SCH (21:00)
[2024-11-21] MEDS: insulin glargine (Lantus) pen - multi-dose SQ SCH (21:00)
[2024-11-21] MEDS: INSULIN LISPRO 100 UNIT/ML INSULN.PEN MULTI-DOSE SQ SCH (21:00)
[2024-11-21] MEDS: LIDOcaine 1% (10mg/ml) 2ml vial SQ ONE (21:29)
[2024-11-21] MEDS: albumin (human) 25% 100ml IV 100 ML IV PRN (22:01)
[2024-11-21] MEDS: heparin 1,000 units/ml 10ml inj HE ONE ×2 (22:03→22:04)
[2024-11-22] VITALS (33 sets, daily range): BP systolic 91–101; BP diastolic 54–70; PULSE 87–126; RESP 16–32; TEMP 96.5–98.1; O2SAT 90–99
[2024-11-22] MEDS ORDERED: DILT120T PO (06:32)
[2024-11-22] MEDS ORDERED: APIX5TAB3 PO (06:32)
[2024-11-22 07:13] LABS: BASOPHILS % (AUTO) 0.1 % (0-1); EOSINOPHILS % (AUTO) 0 % (0-6); HEMOGLOBIN 10.3 g/dl (14.0-17.9); LYMPHOCYTES # (AUTO) 0.1 X10'3 (1.1-4.8); LYMPHOCYTES % (AUTO) 1.1 % (21-51); MEAN CORPUSCULAR HEMOGLOBIN 31.3 PG (27.0-31.0); MEAN CORPUSCULAR HGB CONC 33.3 g/dL (33.0-36.5); MEAN CORPUSCULAR VOLUME 94.1 FL (78-98); MEAN PLATELET VOLUME 8.5 FL (7.4-10.4); MONOCYTES # (AUTO) 0.2 X10'3 (0-0.9); MONOCYTES % (AUTO) 1.7 % (2-12); NEUTROPHILS # (AUTO) 9.5 X10'3 (1.8-7.7); NEUTROPHILS % (AUTO) 97.1 % (42-75); PLATELET COUNT 142 X10'3 (140-440); RED BLOOD COUNT 3.29 X10'6 (4.70-6.10); WHITE BLOOD COUNT 9.8 X10'3 (4.5-11.0)
[2024-11-22 07:47] LABS: ALANINE AMINOTRANSFERASE 18 U/L (12-78); ALBUMIN 3.3 G/DL (3.4-5.0); ALKALINE PHOSPHATASE 56 IU/L (46-116); ANION GAP 13 (8-16); ASPARTATE AMINO TRANSFERASE 14 U/L (10-37); BILIRUBIN,TOTAL 0.5 MG/DL (0.1-1.0); BLOOD UREA NITROGEN 49 MG/DL (7-18); BUN/CREATININE RATIO 8.9 (10.0-20.0); CALCIUM 8.7 MG/DL (8.5-10.1); CHLORIDE 101 MMOL/L (99-107); CREATININE 5.52 MG/DL (0.60-1.10); GLUCOSE 187 MG/DL (70-104); MAGNESIUM 2.2 MG/DL (1.5-2.4); POTASSIUM 5.3 MMOL/L (3.5-5.1); SODIUM 141 MMOL/L (135-145); TOTAL CARBON DIOXIDE 27.1 MMOL/L (24-32); TOTAL PROTEIN 6.5 G/DL (6.4-8.2); eCRCL 13 ML/MIN; eGFR 11 ML/MIN
[2024-11-22] MEDS ORDERED: albumin (human) 25% 100ml IV 100 ML IV PRN (08:00)
[2024-11-22] MEDS ORDERED: normal saline 1000ml 100 ML IV PRN (08:00)
--- NOTE | 2024-11-22 08:01 | PROGRESS NOTE ---
Progress Note Dictate Providers to CC ~ Antibiotic Ordered?: No Objective Vitals Vital Signs Date Time Temp Pulse Resp B/P (MAP) Pulse Ox O2 Delivery O2 Flow Rate FiO2 11/22/24 06:53 98.1 96 18 99/61 (74) 98 Bi-pap/CPAP 11/22/24 03:17 32 11/21/24 15:42 15.0 Lab Results: 11/22/24 0638 11/22/24 0638 Problem\Assessment\Plan Problems/Diagnosis: (1) ESRD (end stage renal disease) on dialysis (2) Electrolyte abnormality (3) Pulmonary edema due to fluid overload (4) Acidemia (5) Anemia Sepsis Screening Skin Color: Normal JONAH WEEMS MD November 22, 2024 08:01
--- NOTE | 2024-11-22 08:05 | PROGRESS NOTE ---
Progress Note Dictate Providers to CC ~ Progress Note: Wes is currently on CPAP 32% and feeling much better with his breathing. Lungs are clear no peripheral edema. Dialysis yesterday took off 3 L which may have contributed to the improvement. Antibiotic Ordered?: No Subjective Subjective No chest pain, no orthopnea. Quite alert. Objective Vitals Vital Signs Date Time Temp Pulse Resp B/P (MAP) Pulse Ox O2 Delivery O2 Flow Rate FiO2 11/22/24 06:53 98.1 96 18 99/61 (74) 98 Bi-pap/CPAP 11/22/24 03:17 32 11/21/24 15:42 15.0 I & O 11/22/24 07:00 Intake Total 700 ml Output Total 3000 ml Balance -2300 ml Intake Oral 200 ml Hemodialysis 500 ml Output Hemodialysis 3000 ml Lab Results: 11/22/24 0638 11/22/24 0638 Problem\Assessment\Plan Problems/Diagnosis: (1) ESRD (end stage renal disease) on dialysis (2) Electrolyte abnormality (3) Pulmonary edema due to fluid overload (4) Acidemia (5) Anemia Additional Plan We will keep watching for the need for dialysis. Otherwise he will have his next on Monday. Sepsis Screening Skin Color: Normal JONAH WEEMS MD November 22, 2024 08:05
[2024-11-22] MEDS: CefTRIAXone/D5W-Rocephin 1gm 50 ML IV SCH (08:28)
[2024-11-22] MEDS: azithromycin/NS 500mg/250ml 250 ML IV ONE (09:24)
[2024-11-22] MEDS ORDERED: aspirin 81mg, enteric-coated 1 TAB TABLET.DR PO SCH (12:45)
[2024-11-22] MEDS: isosorbide dinitrate 30mg tablet PO SCH (12:45)
[2024-11-22] MEDS: ergocalciferol (vit D2) capsule 50,000 UNITS (1,250mcg) CAPSULE PO SCH (15:00)
[2024-11-22] MEDS: ezetimibe 10mg tablet PO SCH (15:00)
[2024-11-22] MEDS: heparin 1,000 units/ml 10ml inj HE ONE ×2 (15:27)
[2024-11-22] MEDS: EPOETIN ALFA-EPBX 20,000 UNIT/ML 1 ML MDV IV ONE (15:28)
[2024-11-22] MEDS: LIDOcaine 1% (10mg/ml) 2ml vial SQ ONE (15:30)
--- NOTE | 2024-11-22 19:02 | PROGRESS NOTE- Residence ---
Progress Note - Resident Providers to CC Resident Creating Document: MURRAY MASTERSONDREW ~ Antibiotic Timeout Antibiotic Ordered?: Yes Subjective Seen and examined patient bedside. His shortness of breath is improving with BiPAP and dialysis .His last paracentesis date is end of the October. Per Dr. Dr. Golden, patient is getting dialysis on Monday. Objective Vital Signs Date Time Temp Pulse Resp B/P (MAP) Pulse Ox O2 Delivery O2 Flow Rate FiO2 11/22/24 17:50 97.8 108 18 99/54 (69) 98 Bi-pap/CPAP 32 11/22/24 11:51 32.0 Result Diagram: 11/22/2438 11/22/24637 General: General: Alert and oriented to time place person. Dyspneic, tachypneic and in mild respiratory distress. On BiPAP HEENT: Atraumatic Neck: Supple. No JVDs or bruits. Chest: Diminished breath sounds in bilateral infrascapular areas. Bilateral expiratory wheeze is present in and suprascapular area, interscapular area which is improving. Tachypneic. Cardiovascular: Distant heart sounds. Regular rate and rhythm. S1-S2. No murmurs appreciated. Abdomen: Soft, nontender, no HSM. Extremities: 2+ pitting edema bilateral. Clubbing is present. No cyanosis. AV fistula seen on left upper extremity. heard continuous missionary murmur Central Nervous System: Cranial nerves and motor system and sensory system is intact. Musculoskeletal: Unremarkable. Skin: Brawny edema over the both lower legs with abrasion over the right leg Advance Care Planning Advanced Care plannin - 30 Minutes Assessment Assessment 62-year-old male with past medical history of chronic kidney disease, ESRD on maintenance hemodialysis on Monday, , Monday., COPD, coronary disease with the NSTEMI(two months ago), CABG x4(in 2006), hypertension, hyperlipidemia, type 2 diabetes mellitus, atrial fibrillation presented to the ER from [facility] with shortness of breathe. He endorses shortness of breath, class four, associated with orthopnea and PND, was there for the past three months but got aggravated for the past 1-2 week. He was here for the same problem two weeks back. He endorses fatigue, decreased energy levels aggravated for the past two weeks. He complained of dry cough for the past one week. He is with wheezing for the past few days. Endorses chest tightness, swelling of the leg, abrasion over the right leg. He Is getting the paracentesis once in a month for the liver problem . He complained of sleep disturbances. He is not getting any urine. His appetite and bowel is normal. He had a bowel movement on yesterday. He received ceftriaxone, Zithromax, methylprednisolone, breathing treatment at [facility]. Admitted for pulmonary edema with ESRD, acute exacerbation of COPD, acute on chronic hypoxemic hypercapnic respiratory failure. Plan Plan Acute on chronic hypoxemic hypercapnic respiratory failure Tachypneic with a hypotension Initially on high-flow oxygen of 15 L but he could not able to tolerate and then he is On BiPAP with FiO2 of 32, inspiratory airway pressure 12, expiratory pressure five and tidal volume 450. The patient is comfortable after he is on BiPAP. Monitoring pCO2 11/22/2024 -Ordered ABG -saturation is maintaining well with 98% with BiPAP -patient is improving - Acute exacerbation of advanced COPD WBC counts were elevated, 23 Patient is on albuterol ipratropium nebulization On methylprednisolone 60 mg q.12h On ceftriaxone &azithromycin to cover Gram-positive and Gram-negative, and anaerobes. Receiving Incentive spirometry q.2h 11/22/2024 -we will continue ceftriaxone, azithromycin, methylprednisolone, albuterol ipratropium nebulization, incentive spirometry ESRD Hyperkalemia Potassium is 6.6 Globin is 11.4 Serum creatinine is 7.6 elevation from the baseline of [address] Brush and he is on board and patient is getting the dialysis per Dr. Brush Contacted Dr. Brush regarding hyperkalemia and he is of kind of opinion that patient potassium maybe settled with hemodialysis 11/22/2024 -serum creatinine and potassium is settling down with dialysis. - is on board. -patient is getting the dialysis on Monday Acute on chronic CHF Pulmonary edema Received Lasix 80 [place] [address] Chest x-ray showing bilateral pleural effusion suggestive of pulmonary edema May improve with hemo dialysis 11/22/2024 Patient's symptoms is improved with hemodialysis Troponinemia likely secondary to type 2 [place] Troponin levels are in 190 about trend is decreased Patient does not have any chest pain and he is with ESRD EKG does not showed ST-elevation, heart rate is 90 which is irregularly irregular, no acute changes Type 2 diabetes mellitus On insulin glargine 20 units, insulin lispro sliding scale at home Ordered A1c Glucose is in 190s 11/22/2024 A1c is 5.9 Blood glucose is in 130s the patient is on insulin glargine 10 units and low- dose lispro protocol Hypertension On hydralazine 50 mg p.o. b.i.d and irbesartan 150 mg p.o. once daily, amlodipine 2.5 mg Did not started on home medications as the blood pressures are in 90s and Handed for to the night resident to monitor blood pressure and to restart these medications if blood pressure is shooting up. 11/22/2024 - Patient is hypotensive and we did not started the patient on hydralazine, irbesartan, amlodipine CAD status post CABG On home medications of aspirin 81 mg, atorvastatin 40 mg Started aspirin, atorvastatin 40 mg Hyperlipidemia On atorvastatin 40 mg, ezetimibe 10 Ordered lipid panel we will follow up with results. Started atorvastatin 40 mg Continuing ezetimibe 10 mg Atrial fibrillation Rate controlled On metoprolol succinate 100 mg Per patient he is using the Eliquis. We will start the medications after medication reconciliation. Continuing Eliquis 5 mg p.o. b.i.d. Code status: Full code Diet: Renal diet DVT prophylaxis: SCDs Murray Masterson resident Date of Service: November 22, 2024 Billing Provider: VEDA THOMAS MD Common Visit Codes: [id number] INP/OBS CARE(HIGH) MURRAY MASTERSON, DREW November 22, 2024 19:02 VEDA THOMAS MD November 22, 2024 21:34
[2024-11-22] MEDS: apixaban 5mg tablet PO SCH (19:32)
[2024-11-22] MEDS: hydrALAZINE 25 MG tablet PO SCH (19:34)
[2024-11-23] VITALS (24 sets, daily range): BP systolic 101–124; BP diastolic 65–77; PULSE 98–128; RESP 18–36; TEMP 97.3–97.9; O2SAT 92–98
[2024-11-23 06:49] LABS: BASOPHILS % (AUTO) 0.1 % (0-1); EOSINOPHILS % (AUTO) 0 % (0-6); HEMATOCRIT 29.2 % (42.0-52.0); HEMOGLOBIN 9.5 g/dl (14.0-17.9); LYMPHOCYTES # (AUTO) 0.2 X10'3 (1.1-4.8); LYMPHOCYTES % (AUTO) 1.2 % (21-51); MEAN CORPUSCULAR HEMOGLOBIN 30.7 PG (27.0-31.0); MEAN CORPUSCULAR HGB CONC 32.7 g/dL (33.0-36.5); MEAN CORPUSCULAR VOLUME 94.1 FL (78-98); MEAN PLATELET VOLUME 8.7 FL (7.4-10.4); MONOCYTES # (AUTO) 0.5 X10'3 (0-0.9); MONOCYTES % (AUTO) 3.8 % (2-12); NEUTROPHILS # (AUTO) 11.9 X10'3 (1.8-7.7); NEUTROPHILS % (AUTO) 94.9 % (42-75); PLATELET COUNT 139 X10'3 (140-440); RED CELL DISTRIBUTION WIDTH 15.2 % (11.5-14.5); WHITE BLOOD COUNT 12.5 X10'3 (4.5-11.0)
--- NOTE | 2024-11-23 07:13 | RADIOLOGY REPORT ---
EXAM: XR Chest, 1 View CLINICAL INDICATION: Pulmonary edema TECHNIQUE: Frontal view of the chest. COMPARISON: DI CHEST,SINGLE VIEW on DOS: 11/21/24, CHEST,SINGLE VIEW on DOS: 08/22/22, CHEST,SINGLE VIE W on DOS: 08/16/22, CHEST,SINGLE VIEW on DOS: 02/23/22 FINDINGS: LUNGS AND PLEURAL SPACES: Bilateral pleural effusions. HEART: Cardiomegaly with pulmonary congestion and edema. Superimposed pneumonia cannot be excluded. MEDIASTINUM: Unremarkable. Normal mediastinal contour. BONES/JOINTS: Unremarkable. No acute fracture. OTHER FINDINGS: . . . IMPRESSION: 1. Cardiomegaly with pulmonary congestion and edema. Superimposed pneumonia cannot be excluded. 2. Bilateral pleural effusions.
[2024-11-23 07:19] LABS: ALANINE AMINOTRANSFERASE 18 U/L (12-78); ALBUMIN 3.2 G/DL (3.4-5.0); ALKALINE PHOSPHATASE 55 IU/L (46-116); ANION GAP 13 (8-16); ASPARTATE AMINO TRANSFERASE 15 U/L (10-37); BILIRUBIN,TOTAL 0.4 MG/DL (0.1-1.0); BLOOD UREA NITROGEN 49 MG/DL (7-18); CALCIUM 8.5 MG/DL (8.5-10.1); CHLORIDE 101 MMOL/L (99-107); CREATININE 4.47 MG/DL (0.60-1.10); GLUCOSE 204 MG/DL (70-104); MAGNESIUM 2.2 MG/DL (1.5-2.4); POTASSIUM 4.9 MMOL/L (3.5-5.1); SODIUM 140 MMOL/L (135-145); TOTAL CARBON DIOXIDE 26.2 MMOL/L (24-32); TOTAL PROTEIN 6.3 G/DL (6.4-8.2); eCRCL 17 ML/MIN; eGFR 13 ML/MIN
[2024-11-23] MEDS: diltiazem CD 120mg capsule (once-daily) PO SCH (07:31)
[2024-11-23] MEDS: FEBUXOSTAT 40MG PO SCH (07:32)
[2024-11-23] MEDS ORDERED: non-formulary drug (Atorvastatin Calcium 1 TAB) PO SCH (08:00)
--- NOTE | 2024-11-23 17:05 | PROGRESS NOTE- Residence ---
Progress Note - Resident Providers to CC Resident Creating Document: GUERO ROQUE, DREW ~ Central Line/PICC still needed: No Baugh-Non Protocol Baugh Indications Met/Not Met: F/C Indications Not Met Antibiotic Timeout Antibiotic Ordered?: Yes Subjective Improved shortness of breath. Is currently at his baseline of 3 L of oxygen. Weaned off of the BiPAP. He was able to walk today, although required intermittent breaks due to increasing shortness of breath. Objective Vital Signs Date Time Temp Pulse Resp B/P (MAP) Pulse Ox O2 Delivery O2 Flow Rate FiO2 11/23/24 15:00 97.9 103 31 101/70 (80) 92 Bi-pap/CPAP 30 11/23/24 13:27 3.0 Result Diagram: 11/23/2461811/23/24618 General: Awake and Alert, no acute distress. HEENT: Conjunctiva pink, Sclera clear, Mucus Membranes moist. Resp: Tachypneic, diminished bilateral breath sounds Heart: Regular Rate and rhythm, normal S1 and S2 without murmur, rub or gallop. Abdomen: Soft and non tender no organomegaly Extremities: 2+ bilateral pitting edema present. No clubbing or cyanosis. Av fistula of the left upper extremity Skin: Warm and Dry. Assessment Assessment 62-year-old male with past medical history of chronic kidney disease, ESRD on maintenance hemodialysis on Monday, , Monday., COPD, coronary disease with the NSTEMI(two months ago), CABG x4(in 2006), hypertension, hyperlipidemia, type 2 diabetes mellitus, atrial fibrillation presented to the ER from [facility] with shortness of breath. He endorses shortness of breath, class four, associated with orthopnea and PND, was there for the past three months but got aggravated for the past 1-2 week. He was here for the same problem two weeks back. He endorses fatigue, decreased energy levels aggravated for the past two weeks. He complained of dry cough for the past one week. He is with wheezing for the past few days. Endorses chest tightness, swelling of the leg, abrasion over the right leg. He Is getting the paracentesis once in a month for the liver problem . He complained of sleep disturbances. He is not getting any urine. His appetite and bowel is normal. He had a bowel movement on yesterday. He received ceftriaxone, Zithromax, methylprednisolone, breathing treatment at [facility]. Admitted for pulmonary edema with ESRD, acute exacerbation of COPD, acute on chronic hypoxemic hypercapnic respiratory failure. Plan Plan 1. Acute on chronic hypoxemic hypercapnic respiratory failure: Secondary to fluid overload status from missing dialysis Fluid overload leading to acute exacerbation of CHF and COPD Tachypneic with a hypotension Initially on high-flow oxygen of 15 L but he could not able to tolerate and then he is On BiPAP with FiO2 of 32, inspiratory airway pressure 12, expiratory pressure five and tidal volume 450. The patient is comfortable after he is on BiPAP. Monitoring pCO2 11/22/2024 -Ordered ABG -saturation is maintaining well with 98% with BiPAP -patient is improving 11/23/2024: Currently at baseline oxygen requirement of 3 L nasal cannula - weaned off the BiPAP - Mucinex 600 mg q.12h for expectoration - continue Rocephin, Zithromax, methylprednisolone and duo nebs - plan for dialysis on Monday; awaiting Nephrology response 2. Acute exacerbation of advanced COPD WBC counts were elevated, 23 Patient is on albuterol ipratropium nebulization On methylprednisolone 60 mg q.12h On ceftriaxone &azithromycin to cover Gram-positive and Gram-negative, and anaerobes. Receiving Incentive spirometry q.2h 11/22/2024 -we will continue ceftriaxone, azithromycin, methylprednisolone, albuterol ipratropium nebulization, incentive spirometry 3. ESRD: Schedule usually Monday, and Monday Potassium is 6.6 Globin is 11.4 Serum creatinine is 7.6 elevation from the baseline of [address] Brush and he is on board and patient is getting the dialysis per Dr. Brush Contacted Dr. Brush regarding hyperkalemia and he is of kind of opinion that patient potassium maybe settled with hemodialysis 11/22/2024 -serum creatinine and potassium is settling down with dialysis. - is on board. -patient is getting the dialysis on Monday11/23/2024: As per Dr. Golden's note, plan for dialysis on Monday - reached out to Dr. Brush who is on-call today, awaiting response regarding plan for dialysis - if no plan, patient to be discharged in a.m. if medically stable 4. Acute on chronic CHF Pulmonary edema Received Lasix 80 [place] [address]73 Chest x-ray showing bilateral pleural effusion suggestive of pulmonary edema May improve with hemo dialysis 11/22/2024 Patient's symptoms is improved with hemodialysis 5. Troponinemia likely secondary to type 2 [place] Troponin levels are in 190 about trend is decreased Patient does not have any chest pain and he is with ESRD EKG does not showed ST-elevation, heart rate is 90 which is irregularly irregular, no acute changes 6. Type 2 diabetes mellitus On insulin glargine 20 units, insulin lispro sliding scale at home Ordered A1c Glucose is in 190s 11/22/2024 A1c is 5.9 Blood glucose is in 130s the patient is on insulin glargine 10 units and low- dose lispro protocol 7. Hypertension On hydralazine 50 mg p.o. b.i.d and irbesartan 150 mg p.o. once daily, amlodipine 2.5 mg Did not started on home medications as the blood pressures are in 90s and Handed for to the night resident to monitor blood pressure and to restart these medications if blood pressure is shooting up. 11/22/2024 - Patient is hypotensive and we did not started the patient on hydralazine, irbesartan, amlodipine 11/23/2024: Medications continued to be on hold as the blood pressure is still soft 8. CAD status post CABG On home medications of aspirin 81 mg, atorvastatin 40 mg Continue aspirin, atorvastatin 40 mg 9. Hyperlipidemia On atorvastatin 40 mg, ezetimibe 10 Ordered lipid panel we will follow up with results. Started atorvastatin 40 mg Continuing ezetimibe 10 mg 10. Atrial fibrillation Rate controlled On metoprolol succinate 100 mg Per patient he is using the Eliquis. We will start the medications after medication reconciliation. Continuing Eliquis 5 mg p.o. b.i.d. Disposition: Awaiting response from Nephrology regarding plan for dialysis on Monday or if the plan is to continue with his usual dialysis regimen. If the patient was stable with no increase in shortness of breath and is able to walk at his baseline, plan for discharge back home tomorrow. Code status: Full code Diet: Renal diet DVT prophylaxis: Beverly Roque PGY2, Internal medicine resident Addendum pt is pretty weak but refuses rehab Date of Service: November 23, 2024 Billing Provider: VEDA THOMAS MD Common Visit Codes: [id number] INP/OBS CARE(HIGH) GUERO ROQUE, RES November 23, 2024 17:05 VEDA THOMAS MD November 23, 2024 20:56
[2024-11-23] MEDS: guaiFENesin ER 600mg tablet PO SCH (20:20)
--- NOTE | 2024-11-23 21:20 | PROGRESS NOTE ---
Progress Note Dictate Providers to CC ~ Central Line/PICC still needed: Yes Central Line/PICC Necessity: Req HD/Plasmapheresis Baugh Indications Met/Not Met: F/C Indications Not Met Antibiotic Ordered?: N/A Subjective Subjective patient is awake, using bipap. no edema. understands his COPD is acting up. Objective Vitals Vital Signs Date Time Temp Pulse Resp B/P (MAP) Pulse Ox O2 Delivery O2 Flow Rate FiO2 11/23/24 20:32 106 11/23/24 20:27 36 Nasal Cannula 3.0 11/23/24 20:20 96 32 11/23/24 15:00 97.9 101/70 (80) Lab Results: 11/23/24 0619 11/23/24 0619 Objective Shaji CVS: RRR RS:Poor air entry bilaterally CVS: RRR RS:CTa Abd;bS+ Ext: Luther geronimo Advance Care Planning Advanced Care plannin - 30 Minutes Problem\Assessment\Plan Problems/Diagnosis: (1) ESRD (end stage renal disease) on dialysis Assessment & Plan: ESRD-HD, Monday schedule will dialyze today for 3 hours, try to get 3 L of UF off today as tolerated, will plan on dialysis again tomorrow if needed (2) Electrolyte abnormality (3) Pulmonary edema due to fluid overload Assessment & Plan: Most consistent with ESRD-HD and inadequate dialysis, would expect considerable improvement as we dialyze him more while he is in the hospital, plan to dialyze today, tomorrow and may begin on Monday for additional UF (4) Acidemia Assessment & Plan: Would expect considerable improvement with dialysis, adjust dialysis prescription (5) Anemia Sepsis Screening Skin Color: Normal CRYSTAL DE LA FUENTE MD November 23, 2024 21:20
[2024-11-24] VITALS (34 sets, daily range): BP systolic 82–116; BP diastolic 48–77; PULSE 74–124; RESP 14–28; TEMP 97.1–98.3; O2SAT 91–97
[2024-11-24 06:31] LABS: BASOPHILS % (AUTO) 0 % (0-1); EOSINOPHILS % (AUTO) 0 % (0-6); HEMATOCRIT 29.3 % (42.0-52.0); HEMOGLOBIN 9.8 g/dl (14.0-17.9); LYMPHOCYTES # (AUTO) 0.1 X10'3 (1.1-4.8); LYMPHOCYTES % (AUTO) 1.5 % (21-51); MEAN CORPUSCULAR HEMOGLOBIN 31.2 PG (27.0-31.0); MEAN CORPUSCULAR HGB CONC 33.5 g/dL (33.0-36.5); MEAN CORPUSCULAR VOLUME 93.1 FL (78-98); MEAN PLATELET VOLUME 8.9 FL (7.4-10.4); MONOCYTES # (AUTO) 0.4 X10'3 (0-0.9); MONOCYTES % (AUTO) 3.9 % (2-12); NEUTROPHILS # (AUTO) 9.4 X10'3 (1.8-7.7); NEUTROPHILS % (AUTO) 94.6 % (42-75); PLATELET COUNT 127 X10'3 (140-440); RED BLOOD COUNT 3.15 X10'6 (4.70-6.10); RED CELL DISTRIBUTION WIDTH 14.6 % (11.5-14.5); WHITE BLOOD COUNT 9.9 X10'3 (4.5-11.0)
[2024-11-24 06:47] LABS: ALANINE AMINOTRANSFERASE 20 U/L (12-78); ALBUMIN 3.3 G/DL (3.4-5.0); ALBUMIN/GLOBULIN RATIO 1.1 (1.1-1.5); ALKALINE PHOSPHATASE 57 IU/L (46-116); ANION GAP 15 (8-16); ASPARTATE AMINO TRANSFERASE 7 U/L (10-37); BILIRUBIN,TOTAL 0.4 MG/DL (0.1-1.0); BLOOD UREA NITROGEN 85 MG/DL (7-18); BUN/CREATININE RATIO 15.1 (10.0-20.0); CALCIUM 8.5 MG/DL (8.5-10.1); CHLORIDE 98 MMOL/L (99-107); CREATININE 5.62 MG/DL (0.60-1.10); GLUCOSE 213 MG/DL (70-104); MAGNESIUM 2.2 MG/DL (1.5-2.4); POTASSIUM 5.2 MMOL/L (3.5-5.1); SODIUM 140 MMOL/L (135-145); TOTAL PROTEIN 6.3 G/DL (6.4-8.2); eCRCL 13 ML/MIN; eGFR 10 ML/MIN
--- NOTE | 2024-11-24 09:40 | PROGRESS NOTE ---
Progress Note Dictate Providers to CC ~ Central Line/PICC still needed: Yes Central Line/PICC Necessity: Req HD/Plasmapheresis Baugh Indications Met/Not Met: F/C Indications Not Met Antibiotic Ordered?: N/A Subjective Subjective CXRshows large pleural effusions left greater than right. Needs thoracentesis without fail. Still on o2. needs a good HD today and 4-5 liters taken off. Hold BP meds until dialysis is done. Continue fluid restriction to 1 liter per day. Objective Vitals Vital Signs Date Time Temp Pulse Resp B/P (MAP) Pulse Ox O2 Delivery O2 Flow Rate FiO2 11/24/24 08:30 17 96 Nasal Cannula 3.0 32 11/24/24 08:00 97 11/24/24 06:55 97.8 104/77 (86) Lab Results: 11/24/24 0552 11/24/24 0552 Objective Shaji CVS: RRR RS:Poor air entry bilaterally CVS: RRR RS:CTa Abd;bS+ Ext: Luther geronimo Advance Care Planning Advanced Care plannin - 30 Minutes Problem\Assessment\Plan Problems/Diagnosis: (1) ESRD (end stage renal disease) on dialysis Assessment & Plan: ESRD-HD, Monday schedule will dialyze for 4 hours today and remove 4-5 liters off as tolerated. (2) Electrolyte abnormality Assessment & Plan: hyperkalemia - will use 2K bath. (3) Pulmonary edema due to fluid overload Assessment & Plan: Most consistent with ESRD-HD and inadequate dialysis - HD ordered again today. (4) Acidemia Assessment & Plan: Would expect considerable improvement with dialysis, adjust dialysis prescription (5) Anemia Assessment & Plan: epogen with dialysis. Sepsis Screening Skin Color: Normal CRYSTAL DE LA FUENTE MD November 24, 2024 09:40
[2024-11-24] MEDS: heparin 1,000unit/ml 10ml vial 10 ML IV ONE (12:20)
[2024-11-24] MEDS: heparin 1,000 units/ml 10ml inj IV ONE (12:21)
[2024-11-24] MEDS: heparin 1,000 units/ml 10ml inj HE ONE ×2 (12:22)
[2024-11-24] MEDS: EPOETIN ALFA-EPBX 20,000 UNIT/ML 1 ML MDV IV ONE (12:22)
[2024-11-24] MEDS: LIDOcaine 1% (10mg/ml) 2ml vial SQ ONE (12:23)
--- NOTE | 2024-11-24 13:14 | PROGRESS NOTE- Residence ---
Progress Note - Resident Providers to CC Resident Creating Document: MURRAY MASTERSONDREW ~ Antibiotic Timeout Antibiotic Ordered?: Yes Subjective Seen and examined the patient and patient is still short of breath. Oxygen saturation is maintaining with 3 L of oxygen at 95. Patient is getting dialysis on today. Objective Vital Signs Date Time Temp Pulse Resp B/P (MAP) Pulse Ox O2 Delivery O2 Flow Rate FiO2 11/24/24 12:45 99 21 92/62 (72) 96 Nasal Cannula 3.0 11/24/24 11:15 98.1 11/24/24 11:00 32 Result Diagram: 11/24/24 0552 11/24/24 0552 General: General: Alert and oriented to time place person. Dyspneic, tachypneic and in mild respiratory distress. HEENT: Atraumatic Neck: Supple. No JVDs or bruits. Chest: Diminished breath sounds in bilateral infrascapular areas. Bilateral expiratory wheeze is present in and suprascapular area, interscapular area which is improving. Tachypneic. Cardiovascular: Distant heart sounds. Regular rate and rhythm. S1-S2. No murmurs appreciated. Abdomen: Soft, nontender, no HSM. Extremities: 2+ pitting edema bilateral. Clubbing is present. No cyanosis. AV fistula seen on left upper extremity. heard continuous missionary murmur Central Nervous System: Cranial nerves and motor system and sensory system is intact. Musculoskeletal: Unremarkable. Skin: Brawny edema over the both lower legs with abrasion over the right leg Advance Care Planning Advanced Care plannin - 30 Minutes Assessment Assessment 62-year-old male with past medical history of chronic kidney disease, ESRD on maintenance hemodialysis on Monday, , Monday., COPD, coronary disease with the NSTEMI(two months ago), CABG x4(in 2006), hypertension, hyperlipidemia, type 2 diabetes mellitus, atrial fibrillation presented to the ER from [facility] with shortness of breath. He endorses shortness of breath, class four, associated with orthopnea and PND, was there for the past three months but got aggravated for the past 1-2 week. He was here for the same problem two weeks back. He endorses fatigue, decreased energy levels aggravated for the past two weeks. He complained of dry cough for the past one week. He is with wheezing for the past few days. Endorses chest tightness, swelling of the leg, abrasion over the right leg. He Is getting the paracentesis once in a month for the liver problem . He complained of sleep disturbances. He is not getting any urine. His appetite and bowel is normal. He had a bowel movement on yesterday. He received ceftriaxone, Zithromax, methylprednisolone, breathing treatment at [facility]. Admitted for pulmonary edema with ESRD, acute exacerbation of COPD, acute on chronic hypoxemic hypercapnic respiratory failure. Plan Plan 1. Acute on chronic hypoxemic hypercapnic respiratory failure: Secondary to fluid overload status from missing dialysis Fluid overload leading to acute exacerbation of CHF and COPD Tachypneic with a hypotension Initially on high-flow oxygen of 15 L but he could not able to tolerate and then he is On BiPAP with FiO2 of 32, inspiratory airway pressure 12, expiratory pressure five and tidal volume 450. The patient is comfortable after he is on BiPAP. Monitoring pCO2 11/22/2024 -Ordered ABG -saturation is maintaining well with 98% with BiPAP -patient is improving 11/23/2024: Currently at baseline oxygen requirement of 3 L nasal cannula - weaned off the BiPAP - Mucinex 600 mg q.12h for expectoration - continue Rocephin, Zithromax, methylprednisolone and duo nebs - plan for dialysis on Monday; awaiting Nephrology response 11/24/2024: Patient is on 3 L of baseline oxygen with saturation maintaining at 92-95%. 2. Acute exacerbation of advanced COPD WBC counts were elevated, 23 Patient is on albuterol ipratropium nebulization On methylprednisolone 60 mg q.12h On ceftriaxone &azithromycin to cover Gram-positive and Gram-negative, and anaerobes. Receiving Incentive spirometry q.2h 11/22/2024 -we will continue ceftriaxone, azithromycin, methylprednisolone, albuterol ipratropium nebulization, incentive spirometry 11/24/2024 -we will continue ceftriaxone, azithromycin, methylprednisolone, DuoNebs, incentive spirometer 3. ESRD: Schedule usually Monday, and Monday Potassium is 6.6 Globin is 11.4 Serum creatinine is 7.6 elevation from the baseline of [address] Brush and he is on board and patient is getting the dialysis per Dr. Brush Contacted Dr. Brush regarding hyperkalemia and he is of kind of opinion that patient potassium maybe settled with hemodialysis 11/22/2024 -serum creatinine and potassium is settling down with dialysis. - is on board. -patient is getting the dialysis on Monday11/23/2024: As per Dr. Golden's note, plan for dialysis on Monday - reached out to Dr. Brush who is on-call today, awaiting response regarding plan for dialysis - if no plan, patient to be discharged in a.m. if medically stable 11/24/2024: Patient is getting the hemodialysis 2nd cycle on today 4. Acute on chronic CHF Pulmonary edema Received Lasix 80 mg stat ProBNP [place] more than 20093 Chest x-ray showing bilateral pleural effusion suggestive of pulmonary edema May improve with hemo dialysis 11/22/2024 Patient's symptoms is improved with hemodialysis 11/24/2024: Patient may improved with hemodialysis on today 5. Troponinemia likely secondary to type 2 [place] Troponin levels are in 190 about trend is decreased Patient does not have any chest pain and he is with ESRD EKG does not showed ST-elevation, heart rate is 90 which is irregularly irregular, no acute changes 6. Type 2 diabetes mellitus On insulin glargine 20 units, insulin lispro sliding scale at home Ordered A1c Glucose is in 190-200 s 11/22/2024 A1c is 5.9 Blood glucose is in 190s to 200s the patient is on insulin glargine 10 units and low-dose lispro protocol 7. Hypertension On hydralazine 50 mg p.o. b.i.d and irbesartan 150 mg p.o. once daily, amlodipine 2.5 mg Did not started on home medications as the blood pressures are in 90s and Handed for to the night resident to monitor blood pressure and to restart these medications if blood pressure is shooting up. 11/22/2024 - Patient is hypotensive and we did not started the patient on hydralazine, irbesartan, amlodipine 11/23/2024: Medications continued to be on hold as the blood pressure is still soft 11/24/2024 Held antihypertensives in view of soft blood pressure 8. CAD status post CABG On home medications of aspirin 81 mg, atorvastatin 40 mg Continue aspirin, atorvastatin 40 mg 9. Hyperlipidemia On atorvastatin 40 mg, ezetimibe 10 Ordered lipid panel we will follow up with results. Started atorvastatin 40 mg Continuing ezetimibe 10 mg 10. Atrial fibrillation Rate controlled On metoprolol succinate 100 mg Per patient he is using the Eliquis. We will start the medications after medication reconciliation. Continuing Eliquis 5 mg p.o. b.i.d. Disposition : We will plan to DC patient on tomorrow. Code status: Full code Diet: Renal diet DVT prophylaxis: SCDs Murray Masterson PGY1, Internal medicine resident Date of Service: November 24, 2024 Billing Provider: VEDA THOMAS MD,MURRAY, RES November 24, 2024 13:14
[2024-11-24] MEDS: albumin (human) 25% 100ml IV 100 ML IV PRN (13:33)
[2024-11-25] VITALS (23 sets, daily range): BP systolic 93–116; BP diastolic 53–82; PULSE 67–128; RESP 16–33; TEMP 97.1–98.5; O2SAT 91–99
[2024-11-25 07:08] LABS: BASOPHILS % (AUTO) 0 % (0-1); EOSINOPHILS % (AUTO) 0 % (0-6); HEMATOCRIT 30.2 % (42.0-52.0); HEMOGLOBIN 9.9 g/dl (14.0-17.9); LYMPHOCYTES # (AUTO) 0.2 X10'3 (1.1-4.8); LYMPHOCYTES % (AUTO) 1.8 % (21-51); MEAN CORPUSCULAR HEMOGLOBIN 30.7 PG (27.0-31.0); MEAN CORPUSCULAR HGB CONC 32.7 g/dL (33.0-36.5); MEAN CORPUSCULAR VOLUME 93.9 FL (78-98); MEAN PLATELET VOLUME 8.2 FL (7.4-10.4); MONOCYTES # (AUTO) 0.3 X10'3 (0-0.9); MONOCYTES % (AUTO) 3.7 % (2-12); NEUTROPHILS # (AUTO) 8.3 X10'3 (1.8-7.7); NEUTROPHILS % (AUTO) 94.5 % (42-75); PLATELET COUNT 121 X10'3 (140-440); RED BLOOD COUNT 3.22 X10'6 (4.70-6.10); RED CELL DISTRIBUTION WIDTH 14.8 % (11.5-14.5); WHITE BLOOD COUNT 8.8 X10'3 (4.5-11.0)
[2024-11-25 07:23] LABS: ALANINE AMINOTRANSFERASE 17 U/L (12-78); ALBUMIN 3.5 G/DL (3.4-5.0); ALBUMIN/GLOBULIN RATIO 1.2 (1.1-1.5); ALKALINE PHOSPHATASE 51 IU/L (46-116); ANION GAP 10 (8-16); ASPARTATE AMINO TRANSFERASE 11 U/L (10-37); BILIRUBIN,TOTAL 0.5 MG/DL (0.1-1.0); BLOOD UREA NITROGEN 51 MG/DL (7-18); BUN/CREATININE RATIO 11.9 (10.0-20.0); CALCIUM 8.8 MG/DL (8.5-10.1); CHLORIDE 100 MMOL/L (99-107); GLUCOSE 221 MG/DL (70-104); MAGNESIUM 2.2 MG/DL (1.5-2.4); POTASSIUM 4.6 MMOL/L (3.5-5.1); SODIUM 138 MMOL/L (135-145); TOTAL CARBON DIOXIDE 27.8 MMOL/L (24-32); TOTAL PROTEIN 6.5 G/DL (6.4-8.2); eCRCL 17 ML/MIN; eGFR 14 ML/MIN
[2024-11-25] MEDS ORDERED: PRED10TA23 PO (10:42)
[2024-11-25] MEDS ORDERED: CEFD300C3 PO (10:42)
--- NOTE | 2024-11-25 13:33 | PROGRESS NOTE ---
Progress Note Dictate Providers to CC ~ Central Line/PICC still needed: Yes Central Line/PICC Necessity: Req HD/Plasmapheresis Baugh Indications Met/Not Met: F/C Indications Not Met Antibiotic Ordered?: N/A Subjective Subjective has a large pleural effusion and this needs to be tapped before he can go home. He needs to be on fluid restriction if discharged. Objective Vitals Vital Signs Date Time Temp Pulse Resp B/P (MAP) Pulse Ox O2 Delivery O2 Flow Rate FiO2 11/25/24 19:19 107 18 Nasal Cannula 3.0 11/25/24 19:13 96 32 11/25/24 15:00 97.3 93/63 (73) Lab Results: 11/25/24 0633 11/25/24 0633 Objective Shaji CVS: RRR RS:Poor air entry bilaterally CVS: RRR RS:CTa Abd;bS+ Ext: Luther geronimo Advance Care Planning Advanced Care plannin - 30 Minutes Problem\Assessment\Plan Problems/Diagnosis: (1) ESRD (end stage renal disease) on dialysis Assessment & Plan: ESRD-HD, Monday schedule he should go as an outpatient tomorrow for his dialysis. (2) Electrolyte abnormality (3) Pulmonary edema due to fluid overload Assessment & Plan: Most consistent with ESRD-HD and inadequate dialysis - he had 4 liters taken off yestrrfday. he gets thoracentesis today prior to dischage. (4) Acidemia (5) Anemia Assessment & Plan: epogen with dialysis. Sepsis Screening Skin Color: Normal CRYSTAL DE LA FUENTE MD November 25, 2024 13:33
--- NOTE | 2024-11-25 14:34 | RADIOLOGY REPORT ---
CHEST RADIOGRAPH Indication: f/u pleural effusions Technique: Single frontal view of the chest was obtained COMPARISON: DI CHEST,SINGLE VIEW on DOS: 11/23/24, DI CHEST,SINGLE VIEW on DOS: 11/21/24, CHEST,SINGLE V IEW on DOS: 08/22/22, CHEST,SINGLE VIEW on DOS: 08/16/22, CHEST,SINGLE VIEW on DOS: 02/23/22 FINDINGS: Lines and Tubes: None Lungs: Low lung volumes. Multifocal airspace disease. Pleura: No effusion. No pneumothorax. Cardiomediastinal contours: Unremarkable Bones: Unremarkable IMPRESSION: Low lung volumes. Multifocal airspace disease.
--- NOTE | 2024-11-25 14:41 | PROCEDURE NOTE CC ---
Procedure Note CC Providers to CC ~ Procedure Name: Thoracentesis Description: Time Out: Done Consent: Pt Site: R Anesthesia: Local Technique: US guided Fluid: 2000ml clear yellowish Complication: None EBL: 0ml Sepsis Screening Reassessment Date: November 25, 2024 Skin Color: Normal ERICA CANTU MD November 25, 2024 14:41
--- NOTE | 2024-11-25 15:03 | RADIOLOGY REPORT ---
PROCEDURE: ULTRASOUND GUIDED THORACENTESIS USING TEMPORARY CATHETER HISTORY: 64 Male with SOB requiring thoracentesis. DOCUMENTATION: Informed consent was obtained and a procedural time out was performed. TECHNIQUE: Ultrasound was used to locate the right pleural fluid collection with an image archived i n the PACS. The skin over the right posterior hemithorax was sterilely prepped, draped, and infiltra parisa with 1% lidocaine. Under real time ultrasound guidance, the right pleural space was accessed wit h a 19-gauge Yueh needle and connected to Vacutainers. The Yueh catheter was advanced, the needle was removed and the temporary catheter was advanced and connected to the Vacutainer. Approximately 2 lit ers of straw colored fluid was removed. The temporary catheter was removed and sterile dressings wer e applied. FINDINGS: Ultrasound demonstrates a moderate right pleural effusion. Imaging confirms the needle tip within the fluid. IMPRESSION: SUCCESSFUL ULTRASOUND GUIDED THORACENTESIS. Procedure by Dr. Swan
--- NOTE | 2024-11-25 15:14 | RADIOLOGY REPORT ---
EXAM: CT CT CHEST HISTORY: B/L pleural effusion COMPARISON: Chest x-ray done 11/25/2024 TECHNIQUE: Axial images were obtained and reformatted in coronal and sagittal planes. All CT scans a [facility] are performed using dose modulation techniques as appropriate to a performed exam including the following: Automated exposure control was utilized; adjustment of the MA and/or KV according to patient size; and use of iterative reconstruction technique. CT Dose: CTDI volume is 18 mGy. Dose-length product is 636 mGy*cm FINDINGS: Small bilateral basilar loculated pleural effusions with compressive atelectasis of underlying lung. There are patchy ground-glass densities throughout both lung box The heart size is enlarged without pericardial effusion. Evidence of prior coronary artery surgery. No enlarged lymph nodes Limited views of the upper abdomen show cirrhotic appearing liver with ascites IMPRESSION: 1. Small bibasilar loculated pleural effusions greater on the left in the right with compressive atel ectasis of underlying lung. Amounts less than on previous pre thoracentesis chest x-ray. 2. Patchy bilateral infiltrates 3. Cardiomegaly 4. Cirrhosis of the liver with ascites.
--- NOTE | 2024-11-25 17:58 | PROGRESS NOTE- Residence ---
Progress Note - Resident Providers to CC Resident Creating Document: ALEX MASTERSONDREW FOREMAN ~ Antibiotic Timeout Antibiotic Ordered?: Yes Subjective Seen and examined the patient and patient is still short of breath. Patient is comfortably sitting in the chair and endorses his improvement in shortness of breath. Patient received two dialysis so far in this hospital. Currently Oxygen saturation is maintaining with 3 L of oxygen at 95. Objective Vital Signs Date Time Temp Pulse Resp B/P (MAP) Pulse Ox O2 Delivery O2 Flow Rate FiO2 11/25/24 16:34 100 18 Nasal Cannula 3.0 11/25/24 16:25 96 32 11/25/24 14:36 104/74 (84) 11/25/24 11:00 97.3 Result Diagram: 11/25/2433 11/25/24632 General: General: Alert and oriented to time place person. Dyspneic, tachypneic and in mild respiratory distress. HEENT: Atraumatic Neck: Supple. No JVDs or bruits. Chest: Diminished breath sounds in bilateral infrascapular areas. Bilateral basal crepitations are present. Bilateral occasional expiratory wheezes present.. Tachypneic. Cardiovascular: Distant heart sounds. Regular rate and rhythm. S1-S2. No murmurs appreciated. Abdomen: Soft, nontender, no HSM. Extremities: 2+ pitting edema bilateral. Clubbing is present. No cyanosis. AV fistula seen on left upper extremity. heard continuous missionary murmur Central Nervous System: Cranial nerves and motor system and sensory system is intact. Musculoskeletal: Unremarkable. Skin: Brawny edema over the both lower legs with abrasion over the right leg Advance Care Planning Advanced Care plannin - 30 Minutes Assessment Assessment 62-year-old male with past medical history of chronic kidney disease, ESRD on maintenance hemodialysis on Monday, , Monday., COPD, coronary disease with the NSTEMI(two months ago), CABG x4(in 2006), hypertension, hyperlipidemia, type 2 diabetes mellitus, atrial fibrillation presented to the ER from [facility] with shortness of breath. He endorses shortness of breath, class four, associated with orthopnea and PND, was there for the past three months but got aggravated for the past 1-2 week. He was here for the same problem two weeks back. He endorses fatigue, decreased energy levels aggravated for the past two weeks. He complained of dry cough for the past one week. He is with wheezing for the past few days. Endorses chest tightness, swelling of the leg, abrasion over the right leg. He Is getting the paracentesis once in a month for the liver problem . He complained of sleep disturbances. He is not getting any urine. His appetite and bowel is normal. He had a bowel movement on yesterday. He received ceftriaxone, Zithromax, methylprednisolone, breathing treatment at [facility]. Admitted for pulmonary edema with ESRD, acute exacerbation of COPD, acute on chronic hypoxemic hypercapnic respiratory failure. Plan Plan 1. Acute on chronic hypoxemic hypercapnic respiratory failure: Secondary to fluid overload status from missing dialysis Fluid overload leading to acute exacerbation of CHF and COPD Tachypneic with a hypotension Initially on high-flow oxygen of 15 L but he could not able to tolerate and then he is On BiPAP with FiO2 of 32, inspiratory airway pressure 12, expiratory pressure five and tidal volume 450. The patient is comfortable after he is on BiPAP. Monitoring pCO2 11/22/2024 -Ordered ABG -saturation is maintaining well with 98% with BiPAP -patient is improving 11/23/2024: Currently at baseline oxygen requirement of 3 L nasal cannula - weaned off the BiPAP - Mucinex 600 mg q.12h for expectoration - continue Rocephin, Zithromax, methylprednisolone and duo nebs - plan for dialysis on Monday; awaiting Nephrology response 11/24/2024: Patient is on 3 L of baseline oxygen with saturation maintaining at 92-95%. 11/25/2024: We initially thought of discharging the patient as the patient is symptomatically better and can follow up with dialysis center but Dr. Johnson does not cleared the patient for discharge because of pleural effusion. Dr. Swan did the thoracentesis and removed 2 L of pleural fluid. 2. Acute exacerbation of advanced COPD WBC counts were elevated, 23 Patient is on albuterol ipratropium nebulization On methylprednisolone 60 mg q.12h On ceftriaxone &azithromycin to cover Gram-positive and Gram-negative, and anaerobes. Receiving Incentive spirometry q.2h 11/22/2024 -we will continue ceftriaxone, azithromycin, methylprednisolone, albuterol ipratropium nebulization, incentive spirometry 11/24/2024 -we will continue ceftriaxone, azithromycin, methylprednisolone, DuoNebs, incentive spirometer 11/25/2024: We will continue antibiotics, methylprednisolone, DuoNebs, incentive spirometry 3. ESRD: Schedule usually Monday, and Monday Potassium is 6.6 Globin is 11.4 Serum creatinine is 7.6 elevation from the baseline of [address] Brush and he is on board and patient is getting the dialysis per Dr. Brush Contacted Dr. Brush regarding hyperkalemia and he is of kind of opinion that patient potassium maybe settled with hemodialysis 11/22/2024 -serum creatinine and potassium is settling down with dialysis. - is on board. -patient is getting the dialysis on Monday11/23/2024: As per Dr. Golden's note, plan for dialysis on Monday - reached out to Dr. Brush who is on-call today, awaiting response regarding plan for dialysis - if no plan, patient to be discharged in a.m. if medically stable 11/24/2024: Patient is getting the hemodialysis 2nd cycle on today 11/25/2024: Shortness of breath is Improved with 2nd cycle of hemodialysis and thoracentesis 4. Acute on chronic CHF Pulmonary edema Received Lasix 80 mg stat ProBNP [place] [id number] Chest x-ray showing bilateral pleural effusion suggestive of pulmonary edema May improve with hemo dialysis 11/22/2024 Patient's symptoms is improved with hemodialysis 11/24/2024: Patient may improved with hemodialysis on today 11/25/2024: Improved with two cycles of dialysis and thoracentesis 5. Troponinemia likely secondary to type 2 WA Troponin levels are in 190 about trend is decreased Patient does not have any chest pain and he is with ESRD EKG does not showed ST-elevation, heart rate is 90 which is irregularly irregular, no acute changes 6. Type 2 diabetes mellitus On insulin glargine 20 units, insulin lispro sliding scale at home Ordered A1c Glucose is in 190-200 s 11/22/2024 A1c is 5.9 Blood glucose is in 190s to 200s the patient is on insulin glargine 10 units and low-dose lispro protocol 11/25/2024 -blood sugars are creeping up to 300s and patient is on insulin protocol 7. Hypertension On hydralazine 50 mg p.o. b.i.d and irbesartan 150 mg p.o. once daily, amlodipine 2.5 mg Did not started on home medications as the blood pressures are in 90s and Handed for to the night resident to monitor blood pressure and to restart these medications if blood pressure is shooting up. 11/22/2024 - Patient is hypotensive and we did not started the patient on hydralazine, irbesartan, amlodipine 11/23/2024: Medications continued to be on hold as the blood pressure is still soft 11/24/2024 Held antihypertensives in view of soft blood pressure 11/25/2024: 8. CAD status post CABG On home medications of aspirin 81 mg, atorvastatin 40 mg Continue aspirin, atorvastatin 40 mg 9. Hyperlipidemia On atorvastatin 40 mg, ezetimibe 10 Ordered lipid panel we will follow up with results. Started atorvastatin 40 mg Continuing ezetimibe 10 mg 10. Atrial fibrillation Rate controlled On metoprolol succinate 100 mg Per patient he is using the Eliquis. We will start the medications after medication reconciliation. Continuing Eliquis 5 mg p.o. b.i.d. Disposition : Anticipate discharge home tomorrow Code status: Full code Diet: Renal diet DVT prophylaxis: SCDs Ghanshyam Masterson PGY1, Internal medicine resident Date of Service: November 25, 2024 Billing Provider: LORI CONTRERAS MD Common Visit Codes: [id number] INP/OBS CARE(HIGH) GHANSHYAM MASTERSON, DREW November 25, 2024 17:58 LORI CONTRERAS MD November 26, 2024 08:52
--- NOTE | 2024-11-25 19:24 | Visit Coding Note ---
Date of Service: November 25, 2024 Billing Provider: LORI CONTRERAS MD Common Visit Codes: [id number] INP/OBS CARE(HIGH) LORI CONTRERAS MD November 25, 2024 19:24
[2024-11-26] VITALS (8 sets, daily range): BP systolic 117; BP diastolic 81; PULSE 86–109; RESP 17–31; TEMP 97.1; O2SAT 90–100
[2024-11-26 07:09] LABS: BASOPHILS % (AUTO) 0.1 % (0-1); EOSINOPHILS % (AUTO) 0 % (0-6); HEMATOCRIT 30.4 % (42.0-52.0); HEMOGLOBIN 10.1 g/dl (14.0-17.9); LYMPHOCYTES # (AUTO) 0.1 X10'3 (1.1-4.8); LYMPHOCYTES % (AUTO) 1.2 % (21-51); MEAN CORPUSCULAR HEMOGLOBIN 31.3 PG (27.0-31.0); MEAN CORPUSCULAR HGB CONC 33.2 g/dL (33.0-36.5); MEAN CORPUSCULAR VOLUME 94.2 FL (78-98); MEAN PLATELET VOLUME 8.1 FL (7.4-10.4); MONOCYTES # (AUTO) 0.3 X10'3 (0-0.9); MONOCYTES % (AUTO) 3.5 % (2-12); NEUTROPHILS # (AUTO) 9.3 X10'3 (1.8-7.7); NEUTROPHILS % (AUTO) 95.2 % (42-75); PLATELET COUNT 122 X10'3 (140-440); RED BLOOD COUNT 3.23 X10'6 (4.70-6.10); RED CELL DISTRIBUTION WIDTH 15.3 % (11.5-14.5); WHITE BLOOD COUNT 9.8 X10'3 (4.5-11.0)
[2024-11-26 07:30] LABS: ALANINE AMINOTRANSFERASE 18 U/L (12-78); ALBUMIN 3.5 G/DL (3.4-5.0); ALBUMIN/GLOBULIN RATIO 1.2 (1.1-1.5); ALKALINE PHOSPHATASE 51 IU/L (46-116); ANION GAP 13 (8-16); ASPARTATE AMINO TRANSFERASE 11 U/L (10-37); BILIRUBIN,TOTAL 0.6 MG/DL (0.1-1.0); BLOOD UREA NITROGEN 84 MG/DL (7-18); BUN/CREATININE RATIO 13.4 (10.0-20.0); CALCIUM 8.6 MG/DL (8.5-10.1); CHLORIDE 98 MMOL/L (99-107); CREATININE 6.25 MG/DL (0.60-1.10); GLUCOSE 276 MG/DL (70-104); POTASSIUM 5.2 MMOL/L (3.5-5.1); SODIUM 137 MMOL/L (135-145); TOTAL CARBON DIOXIDE 26.4 MMOL/L (24-32); TOTAL PROTEIN 6.4 G/DL (6.4-8.2); eCRCL 12 ML/MIN; eGFR 9 ML/MIN
--- NOTE | 2024-11-26 17:42 | DISCHARGE SUMMARY-Residence ---
Discharge Summary Providers to CC Resident Creating Document: MURRAY MASTERSON, RES ~ Discharge Summary Admission Diagnosis: SHORTNESS OF BREATHE, ACUTE PULMONARY EDEMA Hospital Course DATE OF ADMISSION: 11/21/2024 DATE OF DISCHARGE: 11/26/2024 CHEST RADIOGRAPH on 11/21/2024 Indication: CP Technique: Single frontal view of the chest was obtained COMPARISON: None FINDINGS: Lines and Tubes: Median sternotomy. Lungs: Multifocal airspace disease. Pleura: Small left pleural effusion. No pneumothorax. Cardiomediastinal contours: Cardiomegaly. Bones: Unremarkable IMPRESSION: Pulmonary edema Discharge Diagnosis\Comment: Acute pulmonary edema. Volume overload. ESRD on maintenance hemodialysis. Hyperkalemia. Troponinemia Type 2 IA AFib, rate controlled Acute on chronic, diastolic CHF. Acute exacerbation of Advanced COPD. Peripheral arterial disease. Type 2 diabetes mellitus. Hypertension. AFib. Diabetic nephropathy. Obesity with BMI of 40. CAD with status post CABG. Operations\Procedures: Right thoracentesis by Dr. Swan Procedure Name: Thoracentesis on 11/25/2024 Description: Time Out: Done Consent: Pt Site: R Anesthesia: Local Technique: US guided Fluid: 2000ml clear yellowish Complication: None EBL: 0ml Consultants: Dr. Alex Swan Dr. Normal wall Dr. glass Complications: None Condition on DC: Stable New Medications: Cefdinir* (Cefdinir*) 300 Mg Capsule 1 CAP PO Q12H for 5 Days, #10 CAP Prednisone (Prednisone) 10 Mg Tablet 10 MG PO DAILY, #42 TAB Take 4 tabs daily x4 days, then 3 daily x4 days 2 daily x4 days 1 daily x4 days 1/2 daily x4 days then STOP Continued Medications: Albuterol (Albuterol) 17 Gm Aerosol 1-2 PUFFS PO Q4H PRN for SOB or wheezing Amlodipine Besylate (Amlodipine Besylate) 2.5 Mg Tablet 1 TAB PO DAILY Apixaban (Eliquis) 5 Mg Tablet 1 TAB PO BID Aspirin (Aspirin EC) 81 Mg Tablet.dr 1 TABLET PO DAILY, #90 TABLET 3 Refills Atorvastatin Calcium (Atorvastatin Calcium) 40 Mg Tablet 1 TAB PO DAILY for cholesterol Diltiazem HCl (Cardizem LA) 120 Mg Tab.er.24h 120 MG PO DAILY Ergocalciferol (Vitamin D2) (Vitamin D2) 1,250 Mcg Capsule 1 CAP PO Q7D PT TAKES ON MONDAYS Ezetimibe (Ezetimibe) 10 Mg Tablet 1 TAB PO DAILY Febuxostat (Febuxostat) 40 Mg Tablet 1 TAB PO DAILY for gout pain Hydralazine HCl (Hydralazine HCl) 50 Mg Tablet 1 TAB PO BID Insulin Glargine,Hum.rec.anlog (Basaglar Kwikpen U-100) 100 Unit/1 Ml Insuln.pen 20 UNITS SQ HS Insulin Lispro (Humalog) 100 Unit/1 Ml Insuln.pen 1 UNIT SQ SLIDING SCALE Irbesartan (Irbesartan) 150 Mg Tablet 1 TAB PO DAILY Isosorbide Dinitrate* (Isordil*) 30 Mg Tablet 1 TAB PO DAILY Metoprolol Succinate (Metoprolol Succinate) 100 Mg Tab.sr.24h 1 TAB PO DAILY for 30 Days, #30 TAB Mometasone/Formoterol (Dulera 200 Mcg/5 Mcg Inhaler) 13 Gm Hfa.aer.ad 2 PUFFS IH BID Discharge Summary: HPI at the time of admission 62-year-old male with past medical history of chronic kidney disease, ESRD on maintenance hemodialysis on Monday, , Monday., COPD, coronary disease with the NSTEMI(two months ago), CABG x4(in 2006), hypertension, hyperlipidemia, type 2 diabetes mellitus, atrial fibrillation presented to the ER from [facility] with shortness of breathe. He endorses shortness of breath, class four, associated with orthopnea and PND, was there for the past three months but got aggravated for the past 1-2 week. He was here for the same problem two weeks back. He endorses fatigue, decreased energy levels aggravated for the past two weeks. He complained of dry cough for the past one week. He is with wheezing for the past few days. Endorses chest tightness, swelling of the leg, abrasion over the right leg. He Is getting the paracentesis once in a month for the liver problem . He complained of sleep dis turbances. He is not getting any urine. His appetite and bowel is normal. He had a bowel movement on yesterday. He received ceftriaxone, Zithromax, methylprednisolone, breathing treatment at [facility]. He denied chest pain, fever, abdominal pain, headache, dizziness, palpitations, abdominal distention. Discussed code status with him& he wants to be in full code. Course in the hospital 62-year-old male admitted for acute on chronic hypoxemic hypercapnic respiratory failure, fluid overload pulmonary edema secondary to ESRD with the acute exacerbation of CHF and COPD. Initially he was on high-flow oxygen of 15 L but he could not able to tolerate he was on BiPAP with a FiO2 of 30 20 inspiratory airway pressure 12 expiratory five one tidal volume 450 the patient is comfortable after getting him on the BiPAP at 98% oxygen saturation. Patient received Rocephin, Zithromax and titrated doses of methylprednisolone, Mucinex, DuoNebs. We consulted Nephrology Services and patient received two cycles of hemodialysis and thoracentesis by Dr. Swan and removed 2 L of fluid after which patient is symptomatically improved with shortness of breath. Initially WBC counts are elevated and patient WBC counts trended down further and received incentive spirometry. Initially during the time of admission serum creatinine was 7.6 deviation from the baseline of five and it got improved to six, and hyperkalemia is noted patient and improved with hemodialysis. Troponinemia secondary to type 2 IA around 190s but EKG does not showed ST segment elevation. Patient is on insulin protocol with A1c of 5.9 and glucose levels staging over 190-200. Patient hypotensive so we adjusted the antihypertensives to a lower dose. We continued aspirin, atorvastatin, ezetimibe for CAD s/p CABG. Patient received Eliquis and metoprolol Examination at time of discharge Vital Signs Date Time Temp Pulse Resp B/P (MAP) Pulse Ox O2 Delivery O2 Flow Rate FiO2 11/26/24 10:49 31 Nasal Cannula 3.0 32 11/26/24 08:30 93 11/26/24 08:24 90 11/26/24 02:00 97.1 117/81 (93) Examination: General: Alert and oriented to time place person. Not in acute distress HEENT: Atraumatic Neck: Supple. No JVDs or bruits. Chest: Diminished breath sounds in bilateral infrascapular areas. Bilateral occasional basal crepitations are present. Cardiovascular: Distant heart sounds. Regular rate and rhythm. S1-S2. No murmurs appreciated. Abdomen: Soft, nontender, no HSM. Extremities: 2+ pitting edema bilateral. Clubbing is present. No cyanosis. AV fistula seen on left upper extremity. heard continuous missionary murmur Central Nervous System: Cranial nerves and motor system and sensory system is intact. Musculoskeletal: Unremarkable. Skin: Brawny edema over the both lower legs with abrasion over the right leg Laboratory Tests Test 11/24/24 21:51 11/25/24 06:33 11/25/24 07:51 11/25/24 13:13 Glucometer 238 mg/dl 210 mg/dl 240 mg/dl White Blood Count 8.8 X10'3 Red Blood Count 3.22 X10'6 Hemoglobin 9.9 g/dl Hematocrit 30.2 % Mean Corpuscular Volume 93.9 FL Mean Corpuscular Hemoglobin 30.7 PG Mean Corpuscular Hemoglobin Concent 32.7 g/dL Red Cell Distribution Width 14.8 % Platelet Count 121 X10'3 Mean Platelet Volume 8.2 FL Neutrophils (%) (Auto) 94.5 % Lymphocytes (%) (Auto) 1.8 % Monocytes (%) (Auto) 3.7 % Eosinophils (%) (Auto) 0 % Basophils (%) (Auto) 0 % Neutrophils # (Auto) 8.3 X10'3 Lymphocytes # (Auto) 0.2 X10'3 Monocytes # (Auto) 0.3 X10'3 Eosinophils # (Auto) 0.0 X10'3 Basophils # (Auto) 0.0 X10'3 CBC Comment Sodium Level 138 MMOL/L Potassium Level 4.6 MMOL/L Chloride Level 100 MMOL/L Carbon Dioxide Level 27.8 MMOL/L Anion Gap 10 Blood Urea Nitrogen 51 MG/DL Creatinine 4.30 MG/DL Estimated GFR/1.73 m2 14 ML/MIN BUN/Creatinine Ratio 11.9 Glucose Level 221 MG/DL Calcium Level 8.8 MG/DL Magnesium Level 2.2 MG/DL Total Bilirubin 0.5 MG/DL Aspartate Amino Transf (AST/SGOT) 11 U/L Alanine Aminotransferase (ALT/SGPT) 17 U/L Alkaline Phosphatase 51 IU/L Total Protein 6.5 G/DL Albumin 3.5 G/DL Globulin 3.0 G/DL Albumin/Globulin Ratio 1.2 Procalcitonin 2.18 NG/ML Chemistry Comments Test 11/25/24 17:30 11/25/24 21:24 11/26/24 06:51 11/26/24 07:46 Glucometer 315 mg/dl 298 mg/dl 297 mg/dl White Blood Count 9.8 X10'3 Red Blood Count 3.23 X10'6 Hemoglobin 10.1 g/dl Hematocrit 30.4 % Mean Corpuscular Volume 94.2 FL Mean Corpuscular Hemoglobin 31.3 PG Mean Corpuscular Hemoglobin Concent 33.2 g/dL Red Cell Distribution Width 15.3 % Platelet Count 122 X10'3 Mean Platelet Volume 8.1 FL Neutrophils (%) (Auto) 95.2 % Lymphocytes (%) (Auto) 1.2 % Monocytes (%) (Auto) 3.5 % Eosinophils (%) (Auto) 0 % Basophils (%) (Auto) 0.1 % Neutrophils # (Auto) 9.3 X10'3 Lymphocytes # (Auto) 0.1 X10'3 Monocytes # (Auto) 0.3 X10'3 Eosinophils # (Auto) 0.0 X10'3 Basophils # (Auto) 0.0 X10'3 CBC Comment Sodium Level 137 MMOL/L Potassium Level 5.2 MMOL/L Chloride Level 98 MMOL/L Carbon Dioxide Level 26.4 MMOL/L Anion Gap 13 Blood Urea Nitrogen 84 MG/DL Creatinine 6.25 MG/DL Estimated GFR/1.73 m2 9 ML/MIN BUN/Creatinine Ratio 13.4 Glucose Level 276 MG/DL Calcium Level 8.6 MG/DL Total Bilirubin 0.6 MG/DL Aspartate Amino Transf (AST/SGOT) 11 U/L Alanine Aminotransferase (ALT/SGPT) 18 U/L Alkaline Phosphatase 51 IU/L Total Protein 6.4 G/DL Albumin 3.5 G/DL Globulin 2.9 G/DL Albumin/Globulin Ratio 1.2 Chemistry Comments Discharge advice fup with pcp for antihypertensive modifications. advised to hold irbesatran if bp is low. monitor bp at home. continue thrice weekly schedule of dialysis fup with . continue cefdinir 300mg po bid for 5 days. continue prednisone 10mg tablets Take 4 tabs daily x4 days, then 3 daily x4 days 2 daily x4 days 1 daily x4 days 1/2 daily x4 days then STOP continue home oxygen at 3 litres. read about adverse side effects of medication precribed call 911 or visit er if emeregency. New Medications: Cefdinir* 300 Mg Capsule Prednisone 10 Mg Tablet Take 4 tabs daily x4 days, then 3 daily x4 days 2 daily x4 days 1 daily x4 days 1/2 daily x4 days then STOP Continued Medications: Albuterol 17 Gm Aerosol Amlodipine Besylate 2.5 Mg Tablet Apixaban (Eliquis) 5 Mg Tablet Aspirin (Aspirin EC) 81 Mg Tablet.dr Geller Calcium 40 Mg Tablet Diltiazem HCl (Cardizem LA) 120 Mg Tab.er.24h Ergocalciferol (Vitamin D2) (Vitamin D2) 1,250 Mcg Capsule PT TAKES ON MONDAYS Ezetimibe 10 Mg Tablet Febuxostat 40 Mg Tablet Hydralazine HCl 50 Mg Tablet Insulin Glargine,Hum.rec.anlog (Basaglar Kwikpen U-100) 100 Unit/1 Ml Insuln.pen Insulin Lispro (Humalog) 100 Unit/1 Ml Insuln.pen Irbesartan 150 Mg Tablet Isosorbide Dinitrate* (Isordil*) 30 Mg Tablet Metoprolol Succinate 100 Mg Tab.sr.24h Mometasone/Formoterol (Dulera 200 Mcg/5 Mcg Inhaler) 13 Gm Hfa.aer.ad *Problems/Diagnosis: (1) ESRD (end stage renal disease) on dialysis (2) Electrolyte abnormality (3) Pulmonary edema due to fluid overload (4) Acidemia (5) Anemia (6) Elevated troponin Status: Acute (7) Type 2 IA (myocardial infarction) (8) Pulmonary edema Status: Acute (9) Acute and chronic respiratory failure (10) Hyperkalemia Status: Acute (11) End-stage renal disease needing dialysis Status: Acute (12) Acute exacerbation of chronic obstructive airways disease Status: Acute (13) Acute on chronic diastolic heart failure Status: Acute Total Time Spent on D/C: > 30 Minutes Date of Service: November 26, 2024 Billing Provider: LORI CONTRERAS MD Common Visit Codes: [id number] DISCH DAY >30min MURRAY MASTERSON RES November 26, 2024 17:09 LORI CONTRERAS MD November 26, 2024 19:15
== END 2024-11-26 09:22 | disposition home health service (06) | DRG 194 ==
LOC: ER 15:27 → ED HOLD 17:21 → PCU 3S 20:50
PROVIDERS: ADMIT Internal Medicine; ATTEND Internal Medicine
PROC: 5A1D70Z Performance of Urinary Filtration, Intermittent, Less than 6 Hours Per Day (ICD-10-PCS; 2024-11-21)
PROC: 5A09457 Assistance with Respiratory Ventilation, 24-96 Consecutive Hours, Continuous Positive Airway Pressure (ICD-10-PCS; 2024-11-21)
PROC: 5A1D70Z Performance of Urinary Filtration, Intermittent, Less than 6 Hours Per Day (ICD-10-PCS; 2024-11-22)
PROC: 5A1D70Z Performance of Urinary Filtration, Intermittent, Less than 6 Hours Per Day (ICD-10-PCS; 2024-11-24)
PROC: 5A09357 Assistance with Respiratory Ventilation, Less than 24 Consecutive Hours, Continuous Positive Airway Pressure (ICD-10-PCS; 2024-11-24)
PROC: 0W993ZZ Drainage of Right Pleural Cavity, Percutaneous Approach (ICD-10-PCS; principal; 2024-11-25)
PROC: 5A09357 Assistance with Respiratory Ventilation, Less than 24 Consecutive Hours, Continuous Positive Airway Pressure (ICD-10-PCS; 2024-11-25)
DX: I13.2 Hypertensive heart and chronic kidney disease with heart failure and with stage 5 chronic kidney disease, or end stage renal disease (principal); J96.02 Acute respiratory failure with hypercapnia; I21.A1 Myocardial infarction type 2; E87.20 Acidosis, unspecified; D64.9 Anemia, unspecified; E11.21 Type 2 diabetes mellitus with diabetic nephropathy; E11.22 Type 2 diabetes mellitus with diabetic chronic kidney disease; J44.1 Chronic obstructive pulmonary disease with (acute) exacerbation; N18.6 End stage renal disease; E11.51 Type 2 diabetes mellitus with diabetic peripheral angiopathy without gangrene; I25.10 Atherosclerotic heart disease of native coronary artery without angina pectoris; E87.5 Hyperkalemia; J96.22 Acute and chronic respiratory failure with hypercapnia; E66.9 Obesity, unspecified; J96.21 Acute and chronic respiratory failure with hypoxia; I48.91 Unspecified atrial fibrillation; I50.33 Acute on chronic diastolic (congestive) heart failure; K21.9 Gastro-esophageal reflux disease without esophagitis; Z99.2 Dependence on renal dialysis; Z79.899 Other long term (current) drug therapy; Z79.4 Long term (current) use of insulin; Z79.82 Long term (current) use of aspirin; Z95.1 Presence of aortocoronary bypass graft; Z68.41 Body mass index [BMI] 40.0-44.9, adult
CPT/HCPCS: 32555; 36415; 36600; 71045; 71250; 80053; 80061; 82803; 82948; 83036; 83605; 83735; 83880; 84145; 84484; 85018; 85025; 87040; 87081; 93005; 94640; 94660; 94760; 97110; 97116; 97162; 97530; 99291; A4615; A6449; E1594; G0257; G0378; J0456; J0696; J1644; J1815; J2003; J2919; J7030; J7040; P9047; Q4081

== ENCOUNTER 2024-11-29 00:30 | Inpatient (IN) | payer MEDICAID ==
[2024-11-29] VITALS (41 sets, daily range): BP systolic 84–110; BP diastolic 44–72; PULSE 83–113; RESP 15–39; TEMP 97.3–98.6; O2SAT 85–100
[~2024-11-29] VITALS: Ht 172.7 cm; Wt 93.0 kg
[~2024-11-29 00:30] MED LIST changes: +CEFD300C3 PO; +DILT120T PO; +PRED10TA23 PO
[2024-11-29] MEDS ORDERED: diltiazem-NS 100mg/100ml 100 ML IV SCH (00:40)
[2024-11-29] MEDS ORDERED: amiodarone/D5 360MG/200ML BAG 200 ML IV SCH (00:40)
[2024-11-29] MEDS: diltiazem-NS 100mg/100ml 100 ML IV SCH (01:00)
[2024-11-29] MEDS: amiodarone/D5 360MG/200ML BAG 200 ML IV SCH (01:01)
--- NOTE | 2024-11-29 01:06 | ELECTROCARDIOGRAPH REPORT ---
[facility] Test Date: 2024-11-29 Test Time: 01:05:12 Pat Name: GALILEO CABEZAS Department: [facility]-ER Patient ID: [facility]-[id number] Room: Gender: M [employer]: [employer] : 1960 Requested By: NATASHA NUNEZ Order Number: [id number] Reading MD: Measurements Intervals [place] Rate: 88 P: 0 CT: 0 QRS: 44 QRSD: 101 T: 94 QT: 390 QTc: 472 Interpretive Statements Atrial fibrillation Low voltage, extremity leads Nonspecific T abnormalities, lateral leads Please click the below link to view image of tracing.
[2024-11-29 01:20] LABS: BASOPHILS % (AUTO) 0.3 % (0-1); EOSINOPHILS % (AUTO) 0.2 % (0-6); HEMATOCRIT 30.6 % (42.0-52.0); LYMPHOCYTES # (AUTO) 0.3 X10'3 (1.1-4.8); MEAN CORPUSCULAR HGB CONC 32.7 g/dL (33.0-36.5); MEAN CORPUSCULAR VOLUME 94.8 FL (78-98); MEAN PLATELET VOLUME 8.2 FL (7.4-10.4); MONOCYTES # (AUTO) 1.1 X10'3 (0-0.9); NEUTROPHILS # (AUTO) 14.2 X10'3 (1.8-7.7); NEUTROPHILS % (AUTO) 90.5 % (42-75); PLATELET COUNT 128 X10'3 (140-440); RED BLOOD COUNT 3.23 X10'6 (4.70-6.10); RED CELL DISTRIBUTION WIDTH 15.3 % (11.5-14.5); WHITE BLOOD COUNT 15.7 X10'3 (4.5-11.0)
[2024-11-29 01:31] LABS: ALANINE AMINOTRANSFERASE 32 U/L (12-78); ALBUMIN 3.4 G/DL (3.4-5.0); ALBUMIN/GLOBULIN RATIO 1.3 (1.1-1.5); ALKALINE PHOSPHATASE 51 IU/L (46-116); ANION GAP 9 (8-16); ASPARTATE AMINO TRANSFERASE 7 U/L (10-37); BILIRUBIN,TOTAL 0.6 MG/DL (0.1-1.0); BLOOD UREA NITROGEN 48 MG/DL (7-18); BUN/CREATININE RATIO 12.6 (10.0-20.0); CALCIUM 8.3 MG/DL (8.5-10.1); CHLORIDE 102 MMOL/L (99-107); CREATININE 3.82 MG/DL (0.60-1.10); GLUCOSE 193 MG/DL (70-104); SODIUM 137 MMOL/L (135-145); TOTAL CARBON DIOXIDE 25.6 MMOL/L (24-32); eCRCL 19 ML/MIN; eGFR 16 ML/MIN
--- NOTE | 2024-11-29 01:38 | Physician Documentation ---
History of Present Illness ~ Chief Complaint: Irregular Heartbeat Stated Complaint: AFIB RVR Time Seen by MD: 01:38 Primary Medical Doctor: [facility] Mode of Arrival: Ambulatory HPI Patient presents to the emergency room as a transfer from [facility] for AFib RVR and need for dialysis. Patient was last dialyzed today. They did not have dialysis privileges at their facility record therefore transferred to our facility. Patient presented there with AFib RVR and had to be put on two different drips to manage his atrial fibrillation. His heart rate and blood pressure now controlled. He presented over there initially sent from dialysis because his fistula continued to bleed. He is on Eliquis. Sutures were placed in his fistula with a good hemostasis however they noticed his heart rate was elevated prompting them to begin control of his heart rate. He denies any chest pain Medication Reconciliation Allergies: Coded Allergies: No Known Allergies (Unverified , 11/29/24) Scheduled Amlodipine Besylate (Amlodipine Besylate), 1 TAB PO DAILY, (Reported) Apixaban (Eliquis), 1 TAB PO Q12H, (Reported) Apixaban (Eliquis), 1 TAB PO BID, (Reported) Aspirin (Aspirin EC), 1 TABLET PO DAILY, (Reported) Atorvastatin Calcium (Atorvastatin Calcium), 1 TAB PO DAILY, (Reported) Cefdinir* (Cefdinir*), 1 CAP PO Q12H Diltiazem HCl (Diltiazem ER), 1 CAP PO DAILY, (Reported) Diltiazem HCl (Cardizem LA), 120 MG PO DAILY, (Reported) Ergocalciferol (Vitamin D2) (Vitamin D2), 1 CAP PO Q7D, (Reported) Ezetimibe (Ezetimibe), 1 TAB PO DAILY, (Reported) Febuxostat (Febuxostat), 1 TAB PO DAILY, (Reported) Febuxostat (Febuxostat), 1 TAB PO DAILY, (Reported) Furosemide* (Lasix*), 2 TAB PO BID, (Reported) Hydralazine HCl (Hydralazine HCl), 1 TAB PO BID, (Reported) Insulin Glargine,Hum.rec.anlog (Basaglar Kwikpen U-100), 20 UNITS SQ HS, (Reported) Insulin Lispro (Humalog), 1 UNIT SQ SLIDING SCALE, (Reported) Irbesartan (Irbesartan), 1 TAB PO DAILY, (Reported) Isosorbide Dinitrate* (Isordil*), 1 TAB PO DAILY, (Reported) Mometasone/Formoterol (Dulera 200 Mcg/5 Mcg Inhaler), 2 PUFFS IH BID, (Reported) Prednisone (Prednisone), 10 MG PO DAILY Tenapanor HCl (Xphozah), 1 TAB PO BID, (Reported) Scheduled PRN Albuterol (Albuterol), 1-2 PUFFS PO Q4H PRN for SOB or wheezing, (Reported) Discontinued Medications Metoprolol Succinate (Metoprolol Succinate), 1 TAB PO DAILY Discontinued Reason: patient no longer taking Past Medical History Past Medical History: CVA/TIA/Stroke, Coronary Artery Disease, Hypertension, Myocardial Infarction, GERD, Chronic Kidney Disease, Diabetes Past Surgical History: coronary bypass surgery Other Past Surgical History: Four-way bypass Patient History: Patient reports no known family medical history. Alcohol Use: None Drug Use: none Lives In: Home Review of Systems ROS All review of systems negative except as per HPI Physical Exam Vital Signs: Temperature: 98.0, Source: Oral, Heart Rate: 84, Respiratory Rate: 18, BP: 93/67, Pulse Oximetry: 100, Weight: 92.000 Oxygen Flow Rate: 3.0 Physical Exam General: Patient is awake, alert, oriented x4 in no acute distress and well appearing.~ Head: Normocephalic and atraumatic. Eyes: Conjunctival normal. EOMI. PERRL. ENT: Mucous membranes moist. Neck: Supple, trachea is midline. Chest: Clear to auscultation bilaterally without rales, rhonchi, or wheezes. Th ere is no accessory muscle use or retractions. Cardiac: Regular rate, irregular rhythm without murmurs, gallops, or rubs. Abd: Soft, mild distention, nontender, with normoactive bowel sounds. No guarding, rebound, or rigidity. Progress Results/Orders Results/Orders Orders - JC RENNER MD Amiodarone/D5 360mg/200ml Bag (Nexterone (11/29/24 00:54) Diltiazem-Ns 100mg/100ml (Cardizem-Ns 10 (11/29/24 00:54) Chest,Single View (11/29/24 01:01) Monitor (11/29/24 01:01) Saline Lock (11/29/24 01:01) Oxygen (11/29/24 01:01) PBNP (11/29/24 01:01) CMP (11/29/24 01:01) Hs Troponin I W Calculations (11/29/24 01:01) Hs Troponin I W Calculations (11/29/24 03:01) Hs Troponin I W Calculations (11/29/24 04:01) Completed Orders - JC RENNER MD Diltiazem-Ns 100mg/100ml (Cardizem-Ns 10 (11/29/24 00:40) Amiodarone/D5 360mg/200ml Bag (Nexterone (11/29/24 00:40) Chest,Single View (11/29/24 01:01) Cbc/Diff (11/29/24 01:01) Electrocardiogram (11/29/24 01:01) Medications Received in ER Medications (Trade) Dose Ordered Sig/Ryan Route PRN Reason Start Time Stop Time Status Last Admin Dose Admin Amiodarone HCL/ Dextrose 200 ml @ 0 mls/hr Q0M IV 11/29/24 00:54 11/29/24 01:01 33.333 MLS/HR Diltiazem HCl 100 ml @ 0 mls/hr Q0M IV 11/29/24 00:54 11/29/24 01:00 15 MLS/HR Vital Signs 11/29/24 11/29/24 11/29/24 11/29/24 00:32 01:00 01:14 01:20 Temp 98.0 Pulse 90 81 84 Resp 24 24 18 B/P (MAP) 110/77 100/70 93/67 (76) Pulse Ox 100 100 O2 Flow Rate 0 3.0 Laboratory Tests Test 11/29/24 01:11 White Blood Count 15.7 H Red Blood Count 3.23 L Hemoglobin 10.0 L Hematocrit 30.6 L Mean Corpuscular Volume 94.8 Mean Corpuscular Hemoglobin 31.0 Mean Corpuscular Hemoglobin Concent 32.7 L Red Cell Distribution Width 15.3 H Platelet Count 128 L Mean Platelet Volume 8.2 Neutrophils (%) (Auto) 90.5 H Lymphocytes (%) (Auto) 2.0 L Monocytes (%) (Auto) 7.0 Eosinophils (%) (Auto) 0.2 Basophils (%) (Auto) 0.3 Neutrophils # (Auto) 14.2 H Lymphocytes # (Auto) 0.3 L Monocytes # (Auto) 1.1 H Eosinophils # (Auto) 0.0 Basophils # (Auto) 0.0 CBC Comment Sodium Level 137 Potassium Level 5.0 Chloride Level 102 Carbon Dioxide Level 25.6 Anion Gap 9 Blood Urea Nitrogen 48 H Creatinine 3.82 H Estimated GFR/1.73 m2 16 BUN/Creatinine Ratio 12.6 Glucose Level 193 H Calcium Level 8.3 L Total Bilirubin 0.6 Aspartate Amino Transf (AST/SGOT) 7 L Alanine Aminotransferase (ALT/SGPT) 32 Alkaline Phosphatase 51 Total Protein 6.0 L Albumin 3.4 Globulin 2.6 L Albumin/Globulin Ratio 1.3 Chemistry Comments EKG/XRAY/CT/US/VASC/MRI EKG : Additional Comment EKG interpreted by myself shows time of 0 one 0 five, rate 88, atrial fibrillation, normal axis, no ST changes Chest X-Ray : Additional Comments One view chest x-ray interpreted by myself shows increased lucency in the right lung field suspicious for possible pneumonia versus fluid overload. Patient is status post CABG. No pneumothorax Medical Decision Making Findings Patient presents to the emergency room as a transfer from [facility] for AFib RVR requiring a both Cardizem and amiodarone drip as well as end-stage renal disease requiring dialysis. Patient was just dialyzed today and he had not feel immediate dialysis is necessary. Patient did receive a L of fluid at sending facility and this may have cause a degree of fluid overload. We will admit for continued treatment. Departure Admitted to Inpatient Unit: yes, to hospitalist Impression: Primary Impression: Atrial fibrillation with RVR Additional Impression: End-stage renal disease requiring dialysis Condition: Guarded Referrals: NO PRIMARY CARE PROVIDER (PCP) Critical Care Note Total Time (mins): 45 Critical Care Note The very real possibility of a deterioration of this patient's condition required the highest level of my preparedness for sudden, emergent intervention. I provided critical care services, which included medication orders, frequent reevaluations of the patient's condition and response to treatment, ordering and reviewing test results, and discussing the case with various consultants. Excludes time spent performing separately billable procedures. The critical care time associated with the care of the patient was 45 minutes not counting proc edures Signature Scribe Signature: No scribe Attestation: The note accurately reflects work and decisions made by me.Jc Renner MD 11/29/24 01:48 JC RENNER MD November 29, 2024 01:38
[2024-11-29 01:43] LABS: PRO BRAIN NATRIURETIC PEPTIDE > 30000 PG/ML (0-125)
[2024-11-29 02:20] LABS: LYMPHOCYTES % (MANUAL) 2 % (21-51); METAMYLEOCYTES% (MANUAL) 2 % (0-0); MONOCYTES % (MANUAL) 5 % (2-12); NEUTROPHILS % (MANUAL) 91 % (42-75)
[2024-11-29 02:21] LABS: PLATELET ESTIMATE DECREASED; TOTAL CELLS COUNTED 100
--- NOTE | 2024-11-29 02:48 | RADIOLOGY REPORT ---
Clinical History CP Comparison PCXR on 11/23/2024, 1 images. Technique: frontal chest x-ray Without Contrast GALILEO CABEZAS, [id number] Findings: Heart - normal lungs - bilateral infiltrates and effusion.. bones - no acute fracture. status post sternotomy Other- Impression: 1. Bilateral infiltrates and effusions right than left. Increase right lung density compared to delia or examination. This report was electronically signed by Nile Angeles MD on 11/29/2024 2:44:27 AM.
--- NOTE | 2024-11-29 03:53 | HISTORY AND PHYSICAL-Residence ---
History & Physical Providers to CC Resident Creating Document: JON KU DREW ~ History of Present Illness Primary Medical Doctor: [facility] Reason for Admit\Complaint: Palpitation History of Present Illness 64-year-old male history of end-stage renal disease on dialysis, COPD on 3 L O2, coronary artery disease, CABG x4, hypertension, hyperlipidemia, diabetes mellitus, and atrial fibrillation who presents to the ED as a transfer from another facility for AFib with RVR. After patient finishes dialysis session today as dialysis nurses taken out his catheter from the fistula started to bleed uncontrollably. They are unable to stopped the bleeding so he is transferred to a hospital where the bleeding site was sutured. After the bleeding was controlled patient's heart rate jumped to the 140s and was found to be in AFib RVR. He was started on amiodarone diltiazem and transferred to [facility] for higher level of care. Patient is still continued to be on both amnion diltiazem heart rate has come down to the 100s continues to be in AFib. Patient denies any chest pain, shortness of breath, abdominal pain, any weakness. He tells me he is at his baseline he does say has been coughing for the past couple of days and has been hospitalized 2 times in the last two months for COPD exacerbation. Allergies: Coded Allergies: No Known Allergies (Unverified , 11/29/24) Home Medications Home Medications Active Cefdinir* (Cefdinir) 300 Mg Capsule 1 Cap PO Q12H 5 Days Prednisone 10 Mg Tablet 10 Mg PO DAILY Take 4 tabs daily x4 days, then 3 daily x4 days 2 daily x4 days 1 daily x4 days 1/2 daily x4 days then STOP Reported Eliquis (Apixaban) 5 Mg Tablet 1 Tab PO BID Cardizem LA (Diltiazem HCl) 120 Mg Tab.er.24h 120 Mg PO DAILY Xphozah (Tenapanor HCl) 30 Mg Tablet 1 Tab PO BID Febuxostat 40 Mg Tablet 1 Tab PO DAILY 30 Days Eliquis (Apixaban) 5 Mg Tablet 1 Tab PO Q12H 30 Days Diltiazem ER (Diltiazem HCl) 120 Mg Cap.er.12h 1 Cap PO DAILY 30 Days Lasix* (Furosemide) 20 Mg Tablet 2 Tab PO BID 30 Days Vitamin D2 (Ergocalciferol (Vitamin D2)) 1,250 Mcg Capsule 1 Cap PO Q7D PT TAKES ON MONDAYS Atorvastatin Calcium 40 Mg Tablet 1 Tab PO DAILY Isordil* (Isosorbide Dinitrate) 30 Mg Tablet 1 Tab PO DAILY Febuxostat 40 Mg Tablet 1 Tab PO DAILY Ezetimibe 10 Mg Tablet 1 Tab PO DAILY Amlodipine Besylate 2.5 Mg Tablet 1 Tab PO DAILY Irbesartan 150 Mg Tablet 1 Tab PO DAILY Dulera 200 Mcg/5 Mcg Inhaler (Mometasone/Formoterol) 13 Gm Hfa.aer.ad 2 Puffs IH BID Hydralazine HCl 50 Mg Tablet 1 Tab PO BID Humalog (Insulin Lispro) 100 Unit/1 Ml Insuln.pen 1 Unit SQ SLIDING SCALE Albuterol 17 Gm Aerosol 1-2 Puffs PO Q4H PRN Aspirin EC (Aspirin) 81 Mg Tablet.dr 1 Tablet PO DAILY Basaglar Kwikpen U-100 (Insulin Glargine,Hum.rec.anlog) 100 Unit/1 Ml Insuln.pen 20 Units SQ HS Past Medical History Past Medical History End-stage renal disease CABG Coronary artery disease COPD Diabetes mellitus Atrial fibrillation Past Surgical History Surgical History Comment Quadruple CABG in 2006. Family History Family History: Patient reports no known family medical history. Past Social History Social History Comment Denies any smoking history, alcohol use or drug use at this time. Used to be a very heavy cannabis user but quit many years ago Smoking: Quit less than 1 year Alcohol Use: None Drug Use: None Lives In: Home Exam Vitals: Vital Signs Date Time Temp Pulse Resp B/P (MAP) Pulse Ox O2 Delivery O2 Flow Rate FiO2 11/29/24 03:02 74 85/54 11/29/24 03:01 26 93 3.0 11/29/24 00:32 98.0 General: General: Awake and Alert, no acute distress. HEENT: Conjunctiva pink, Sclera clear, Mucus Membranes moist. Neck: Supple without masses and tenderness. Resp: Clear breath sounds Heart: Irregular rhythm Abdomen: Soft and non tender no organomegaly Extremities: No cyanosis,clubbing or edema. Skin: Warm and Dry. Diagnostic Data Last Recorded Lab Results: 11/29/24 0111 11/29/24 0111 Advance Care Planning Advanced Care plannin - 30 Minutes Additional Plan Atrial fibrillation with RVR Patient was started on amiodarone and diltiazem drip the prior facility which was continued here currently weaning him off both drips. His blood pressure allows looks like he is on diltiazem at home we will restart that in the morning as we titrate off the drips. Continue Eliquis 5 mg b.i.d. Chronic hypoxic respiratory failure COPD, not in exacerbation Continue supplemental oxygen at 3 L Patient has had two COPD exacerbations in the last two months. Needs optimization of inhalers before discharge ESRD Patient received dialysis morning Leukocytosis, suspect reactive Repeat CBC HFpEF, EF 55-60% Hold off on GDMT pressures are on the low side Elevated troponin secondary to type 2 WA Diabetes mellitus type 2 On insulin glargine 20 units, insulin lispro sliding scale at home Hypertension Hold his home meds for now due to hypotension CAD status post CABG Hyperlipidemia Continue aspirin 81 and atorvastatin 40 Code Status: Full code DVT prophylaxis: Eliquis Nutrition: Diabetic PT: Yes Prognosis: Fair Disposition: Likely be discharged in next 24-48 hours Jon Ku MD Internal Medicine Resident PGY-3 Date of Service: November 29, 2024 Billing Provider: PERRY TRAVIS MD,JON, RES November 29, 2024 03:53
[2024-11-29] MEDS ORDERED: magnesium Cl slow-release 64mg tablet PO PRN (05:05)
[2024-11-29] MEDS ORDERED: magnesium sulf-water 4G/100mL 100 ML IV PRN (05:05)
[2024-11-29] MEDS ORDERED: potassium Cl 20 mEq SR tablet PO PRN ×2 (05:05)
[2024-11-29] MEDS ORDERED: potassium Cl 40MEQ/1/2NS 520ml 520 ML IV PRN (05:05)
[2024-11-29] MEDS ORDERED: magnesium sulf-water 2g/50mL 50 ML IV PRN (05:05)
[2024-11-29] MEDS ORDERED: furosemide 10 MG/1 ML 10ml inj IV ONE (05:20)
[2024-11-29] MEDS: ipratropium/albuterol 3ml nebule NEB SCH ×2 (05:36→11:00)
[2024-11-29] MEDS: K and/or MAG REPLACEMENT MC SCH (08:00)
[2024-11-29] MEDS ORDERED: non-formulary drug (Irbesartan 1 TAB) PO SCH (08:00)
[2024-11-29] MEDS: amLODIPine 2.5mg tablet PO SCH (08:00)
[2024-11-29] MEDS: FEBUXOSTAT 40MG TAB PO SCH (08:00)
[2024-11-29] MEDS ORDERED: furosemide 20MG tablet PO SCH (08:00)
[2024-11-29] MEDS ORDERED: ipratropium/albuterol 3ml nebule NEB PRN ×2 (08:40→13:45)
[2024-11-29] MEDS: azithromycin/NS 500mg/250ml 250 ML IV SCH (08:40)
--- NOTE | 2024-11-29 09:03 | CONSULTATION REPORT ---
Consult Providers to CC ~ History of Present Illness Primary Medical Doctor: Joseph Aguiar MD Reason for Admit\Complaint: ESRD, fluid overload History of Present Illness 64-year-old male history of end-stage renal disease on dialysis, COPD on 3 L O2, coronary artery disease, CABG x4, hypertension, hyperlipidemia, diabetes mellitus, and atrial fibrillation who presents to the ED as a transfer from another facility for AFib with RVR. After patient finished dialysis yesterday and dialysis nurses took out his catheter from the fistula started to bleed uncontrollably. They were unable to stopped the bleeding so he was transferred to the hospital where the bleeding site was sutured. After the bleeding was controlled patient's heart rate jumped to the 140s and was found to be in AFib RVR. He was started on amiodarone diltiazem and transferred to [facility] for higher level of care. He had recently left the hospital a few days ago. Allergies: Coded Allergies: No Known Allergies (Unverified , 11/29/24) Home Medications Home Medications Active Cefdinir* (Cefdinir) 300 Mg Capsule 1 Cap PO Q12H 5 Days Prednisone 10 Mg Tablet 10 Mg PO DAILY Take 4 tabs daily x4 days, then 3 daily x4 days 2 daily x4 days 1 daily x4 days 1/2 daily x4 days then STOP Reported Eliquis (Apixaban) 5 Mg Tablet 1 Tab PO BID Cardizem LA (Diltiazem HCl) 120 Mg Tab.er.24h 120 Mg PO DAILY Xphozah (Tenapanor HCl) 30 Mg Tablet 1 Tab PO BID Febuxostat 40 Mg Tablet 1 Tab PO DAILY 30 Days Eliquis (Apixaban) 5 Mg Tablet 1 Tab PO Q12H 30 Days Diltiazem ER (Diltiazem HCl) 120 Mg Cap.er.12h 1 Cap PO DAILY 30 Days Lasix* (Furosemide) 20 Mg Tablet 2 Tab PO BID 30 Days Vitamin D2 (Ergocalciferol (Vitamin D2)) 1,250 Mcg Capsule 1 Cap PO Q7D PT TAKES ON MONDAYS Atorvastatin Calcium 40 Mg Tablet 1 Tab PO DAILY Isordil* (Isosorbide Dinitrate) 30 Mg Tablet 1 Tab PO DAILY Febuxostat 40 Mg Tablet 1 Tab PO DAILY Ezetimibe 10 Mg Tablet 1 Tab PO DAILY Amlodipine Besylate 2.5 Mg Tablet 1 Tab PO DAILY Irbesartan 150 Mg Tablet 1 Tab PO DAILY Dulera 200 Mcg/5 Mcg Inhaler (Mometasone/Formoterol) 13 Gm Hfa.aer.ad 2 Puffs IH BID Hydralazine HCl 50 Mg Tablet 1 Tab PO BID Humalog (Insulin Lispro) 100 Unit/1 Ml Insuln.pen 1 Unit SQ SLIDING SCALE Albuterol 17 Gm Aerosol 1-2 Puffs PO Q4H PRN Aspirin EC (Aspirin) 81 Mg Tablet.dr 1 Tablet PO DAILY Basaglar Kwikpen U-100 (Insulin Glargine,Hum.rec.anlog) 100 Unit/1 Ml Insuln.pen 20 Units SQ HS Past Medical History Past Medical History End-stage renal disease CABG Coronary artery disease COPD Diabetes mellitus Atrial fibrillation Past Surgical History Surgical History Comment Quadruple CABG in 2006. Family History Family History: Patient reports no known family medical history. Past Social History Social History Comment Denies any smoking history, alcohol use or drug use at this time. Used to be a very heavy cannabis user but quit many years ago Smoking: Quit less than 1 year Alcohol Use: None Drug Use: None Lives In: Home ROS ROS shortntess of breath, orthopnea Exam Vitals: Vital Signs Date Time Temp Pulse Resp B/P (MAP) Pulse Ox O2 Delivery O2 Flow Rate FiO2 11/29/24 08:22 83 26 Nasal Cannula 3.0 11/29/24 08:16 96 32 11/29/24 05:04 93/71 (78) 11/29/24 00:32 98.0 General: Vital Signs: As above General: Normal body habitus, no acute distress. Skin: No rashes, lumps, ulcers, blisters, purpura or petechiae HEENT: Anicteric sclera, SCARLETT Neck: Supple and nontender without enlargement of the thyroid, or lymphadenopathy. Chest: Normal size and shape, no tenderness, CTA bilaterally decreased BS in the bases Heart: Regular. No jugular venous distention, S1 and S2 heard , no gallop Abdomen: Soft and non tender no organomegaly,BS+ Extremities: No pedal edema Neuro: Nonfocal. Diagnostic Data Last Recorded Lab Results: 11/29/24 0111 11/29/24 0111 Problems: (1) ESRD (end stage renal disease) Assessment & Plan: fluid overloaded. will do HD again today. This should put him back on routine. He probably won't need it again this weekend. Orders placed. fluid restriction to 33 ounces per day 1 Liter that is. renal diet strictly. (2) COPD exacerbation Status: Acute Assessment & Plan: leukocytosis etiology unclear. being managed by hospitalist service with resident.CRYTSAL Samano MD November 29, 2024 09:03
[2024-11-29] MEDS: atorvastatin 20mg tablet PO SCH (09:29)
[2024-11-29] MEDS: diltiazem CD 120mg capsule (once-daily) PO SCH (09:29)
[2024-11-29] MEDS: apixaban 5mg tablet PO SCH (09:29)
[2024-11-29] MEDS: furosemide 40mg/4ml inj IV SCH (10:25)
--- NOTE | 2024-11-29 11:24 | PROCEDURE NOTE CC ---
Procedure Note CC Providers to CC ~ Procedure Name: Thoracentesis Description: Indication: Worsening Pleural Effusion Time-Out: Done Consent: Pt Site: Right Anesthesia: Local Technique: US guided Fluid: 2000ml clear-yellowish Complication: None EBL: 0ml Sepsis Screening Reassessment Date: November 29, 2024 ERICA CANTU MD November 29, 2024 11:24
[2024-11-29] MEDS: LIDOcaine 1% (10mg/ml) 2ml vial SQ ONE (12:19)
[2024-11-29 12:21] LABS: ABG BASE EXCESS -4.6 mmol/L (-2.0-3.0); ABG HCO3 21.5 mmol/L (21.0-28.0); ABG PCO2 (T) 44.1 mmHg (35.0-48.0); ABG PH (T) 7.306 (7.350-7.450); ABG PO2 (T) 111.9 mmHg (83.0-108.0); ALLEN'S TEST POSITIVE; FCOHb 0.6 % (0.5-1.5); FMetHb 0.3 % (0.0-1.5); FO2Hb 97.1 % (94.0-98.0); MODE MASK - BIPAP; RESPIRATORY RATE 12 b/min; TOTAL HEMOGLOBIN 9.8 G/dl (13.5-17.5)
--- NOTE | 2024-11-29 12:48 | RADIOLOGY REPORT ---
PROCEDURE: ULTRASOUND GUIDED THORACENTESIS USING TEMPORARY CATHETER HISTORY: b/l pleural effusion DOCUMENTATION: Informed consent was obtained and a procedural time out was performed. FINDINGS: The risks and benefits of the procedure including bleeding, infection and pneumothorax were explained to the patient and written informed consent obtained. Optimal site for puncture long the rigth posterior chest wall was determined using real-time ultraso und and the region sterilized. Local anesthesia was instilled. A 5 Marshallese catheter was then advanced into the pleural space and 2 liters of strwa colored fluid w as removed. The patient tolerated the procedure well. IMPRESSION: Ultrasound guided right thoracentesis. Procedure by Dr. Swan
[2024-11-29] MEDS: heparin 1,000 units/ml 10ml inj IV ONE (13:09)
[2024-11-29] MEDS: heparin 1,000unit/ml 10ml vial 10 ML IV ONE (13:10)
[2024-11-29] MEDS: heparin 1,000 units/ml 10ml inj HE ONE ×2 (13:11)
[2024-11-29] MEDS: EPOETIN ALFA-EPBX 20,000 UNIT/ML 1 ML MDV IV ONE (13:11)
[2024-11-29] MEDS: albumin (human) 25% 100ml IV 100 ML IV PRN (13:21)
--- NOTE | 2024-11-29 13:58 | PROGRESS NOTE- Residence ---
Progress Note - Resident Providers to CC Resident Creating Document: JOSEPH AGUIAR RES ~ Antibiotic Timeout Antibiotic Ordered?: Yes Subjective Patient was seen and examined at bedside. He was tachypneic, and was very short of breath. CXR showed bilateral pleural effusion more prominent on the right side. Thoracentesis performed, 2000 cc fluid drained from right side. Objective Vital Signs Date Time Temp Pulse Resp B/P (MAP) Pulse Ox O2 Delivery O2 Flow Rate FiO2 11/29/24 13:30 92 20 91/59 (70) 97 Bi-pap/CPAP 21 11/29/24 12:15 98.6 11/29/24 08:22 3.0 General: Awake and Alert, no acute distress. HEENT: Conjunctiva pink, Sclera clear, Mucus Membranes moist. Neck: Supple without masses and tenderness. Resp: Air entry has significantly reduced on the right side and moderately reduced on the left side Heart: Irregular rhythm Abdomen: Soft and non tender no organomegaly Extremities: No cyanosis,clubbing or edema. Skin: Warm and Dry Result Diagram: 11/29/24 0111 11/29/24 0111 Advance Care Planning Advanced Care plannin - 30 Minutes Assessment Assessment Assessment and plan: 64-year-old male history of end-stage renal disease on dialysis, COPD on 3 L O2, coronary artery disease, CABG x4, hypertension, hyperlipidemia, diabetes mellitus, and atrial fibrillation who presents to the ED as a transfer from another facility for AFib with RVR. Plan Plan Paroxysmal atrial fibrillation with RVR: Received amiodarone and diltiazem infusion Currently, in sinus rhythm. Amiodarone drip discontinued Amiodarone 200 mg p.o. twice daily initiated Continue Cardizem 120 mg p.o. daily Continue apixaban 5 mg twice daily Acute on chronic hypoxemic respiratory failure: Community-acquired pneumonia, covering Gram-positive, Gram-negative, and atypical Acute exacerbation of COPD Bilateral Pleural Effusion On 3 L oxygen at home, requiring 5 L - maintain oxygen saturation between 89 and 92% -use BiPAP if required Solu-Medrol 40 mg IV twice daily Rocephin 1 g IV daily Azithromycin 500 mg IV daily for three days DuoNeb nebulization every 4 hours scheduled DuoNeb nebulization every 2 hours as needed Incentive spirometry, and flutter Follow blood, and sputum, cultures Acute CHFpEF: Pulmonary Hypertension Cor-Pulmonale Echo 11/06/24 shows EF 55-60%, RVSP 57mmg B/P Pleural Effusion; CHF related vs Parapneumonic Effusion. Likely CHF related If respiratory distress, respiratory acidosis, and/or hypoxia persist on oxygen therapy, use BiPAP Patient is in acute decompensation and evidence of volume overload is conspicuous Lasix 40 mg IV daily initiated Strictly monitor JASON's Sodium restriction <2gm/day; fluid restriction 1.5 L/day Venous thromboembolism prophylaxis; low-dose unfractionated heparin Diagnostic and therapeutic thoracentesis performed; 2000 cc fluid drained from right side Elevated troponins: Likely type 2 WA/demand ischemia Trending down, EKG negative for acute ischemic changes End-stage renal disease: On hemodialysis; Monday and Monday Monitor S. Electrolytes i.e potassium and magnesium daily BUN/Creatinine often rise during diuretic RX, monitory carefully Renal diet Dr. Johnson consulted, evaluated the patient. Appreciate recommendations Diabetes mellitus type 2 A1C is 5.9 On insulin glargine 20 units, insulin lispro sliding scale at home Hyperglycemia hypoglycemia protocol in place Hypertension: Continue amlodipine Cardizem Hyperlipidemia: Continue atorvastatin CAD s status post CABG: Continue treating Acute CHFpEF GDMT when stable DVT prophylaxis: Eliquis Code status: Full code Joseph Aguiar Internal Medicine Resident Date of Service: November 29, 2024 Billing Provider: SKYLAR ROLDAN MD, SHAMS, RES November 29, 2024 13:58
[2024-11-29] MEDS: amiodarone 200mg tablet PO SCH (17:00)
[2024-11-29] MEDS: CefTRIAXone/D5W-Rocephin 1gm 50 ML IV SCH (17:07)
[2024-11-29] MEDS ORDERED: insulin glargine (Lantus) pen - multi-dose SQ SCH (21:00)
[2024-11-29] MEDS: methylPREDNISolone sod succ/PF 40mg inj. IV SCH (21:08)
[2024-11-29] MEDS: normal saline 500ml IV soln 500 ML IV SCH (21:25)
[2024-11-29] MEDS: normal saline 500ml IV soln 500 ML IV ONE (21:25)
[2024-11-29] MEDS: insulin glargine (Lantus) pen - multi-dose SQ SCH (21:41)
[2024-11-30] VITALS (18 sets, daily range): BP systolic 92–103; BP diastolic 58–79; PULSE 81–110; RESP 16–35; TEMP 97.2–98; O2SAT 93–99
[2024-11-30 06:59] LABS: BASOPHILS % (AUTO) 0.1 % (0-1); EOSINOPHILS % (AUTO) 0.1 % (0-6); HEMATOCRIT 27.1 % (42.0-52.0); LYMPHOCYTES # (AUTO) 0.1 X10'3 (1.1-4.8); LYMPHOCYTES % (AUTO) 1.4 % (21-51); MEAN CORPUSCULAR HEMOGLOBIN 31.5 PG (27.0-31.0); MEAN CORPUSCULAR HGB CONC 33.2 g/dL (33.0-36.5); MEAN CORPUSCULAR VOLUME 94.9 FL (78-98); MEAN PLATELET VOLUME 8.7 FL (7.4-10.4); MONOCYTES # (AUTO) 0.1 X10'3 (0-0.9); MONOCYTES % (AUTO) 1.6 % (2-12); NEUTROPHILS # (AUTO) 8.3 X10'3 (1.8-7.7); NEUTROPHILS % (AUTO) 96.8 % (42-75); PLATELET COUNT 87 X10'3 (140-440); RED BLOOD COUNT 2.86 X10'6 (4.70-6.10); RED CELL DISTRIBUTION WIDTH 15.4 % (11.5-14.5); WHITE BLOOD COUNT 8.5 X10'3 (4.5-11.0)
[2024-11-30 07:11] LABS: ALANINE AMINOTRANSFERASE 24 U/L (12-78); ALBUMIN 3.2 G/DL (3.4-5.0); ALBUMIN/GLOBULIN RATIO 1.3 (1.1-1.5); ALKALINE PHOSPHATASE 45 IU/L (46-116); ANION GAP 8 (8-16); ASPARTATE AMINO TRANSFERASE 14 U/L (10-37); BILIRUBIN,TOTAL 0.4 MG/DL (0.1-1.0); BLOOD UREA NITROGEN 38 MG/DL (7-18); BUN/CREATININE RATIO 11.5 (10.0-20.0); CALCIUM 8.6 MG/DL (8.5-10.1); CHLORIDE 100 MMOL/L (99-107); GLUCOSE 269 MG/DL (70-104); POTASSIUM 4.9 MMOL/L (3.5-5.1); SODIUM 135 MMOL/L (135-145); TOTAL CARBON DIOXIDE 27.3 MMOL/L (24-32); TOTAL PROTEIN 5.6 G/DL (6.4-8.2); eCRCL 22 ML/MIN; eGFR 19 ML/MIN
[2024-11-30] MEDS: docusate sod 100mg capsule PO SCH (09:40)
--- NOTE | 2024-11-30 11:09 | PROGRESS NOTE- Residence ---
Progress Note - Resident Providers to CC Resident Creating Document: JOSEPH AGUIAR RES ~ Antibiotic Timeout Antibiotic Ordered?: Yes Subjective Patient was seen and examined at bedside. He reports no concern this morning and expresses satisfaction with his current progress. Hypoxia significantly improved; currently stable on 1 L oxygen via nasal cannula. Thoracentesis performed yesterday with removal of 2 L of straw-colored fluid from the right pleural space. He also underwent hemodialysis yesterday with net fluid removal of 4 L; total negative fluid balance of approximately 2900 cc. [place]BC [place] [id number]. Objective Vital Signs Date Time Temp Pulse Resp B/P (MAP) Pulse Ox O2 Delivery O2 Flow Rate FiO2 11/30/24 08:00 102 11/30/24 07:32 22 Nasal Cannula 1.0 11/30/24 07:24 97 24 11/30/24 02:00 98.0 92/63 (73) General: Awake and Alert, no acute distress. HEENT: Conjunctiva pink, Sclera clear, Mucus Membranes moist. Neck: Supple without masses and tenderness. Resp: Air entry has significantly reduced on the right side and moderately reduced on the left side Heart: Irregular rhythm Abdomen: Soft and non tender no organomegaly Extremities: No cyanosis,clubbing or edema. Skin: Warm and Dry Result Diagram: 11/30/2462311/30/24623 Advance Care Planning Advanced Care plannin - 30 Minutes Assessment Assessment Assessment and plan: 64-year-old male history of end-stage renal disease on dialysis, COPD on 3 L O2, coronary artery disease, CABG x4, hypertension, hyperlipidemia, diabetes mellitus, and atrial fibrillation who presents to the ED as a transfer from another facility for AFib with RVR. Plan Plan Paroxysmal atrial fibrillation with RVR: Received amiodarone and diltiazem infusion Currently, in sinus rhythm. Amiodarone drip discontinued Amiodarone 200 mg p.o. twice daily initiated Continue Cardizem 120 mg p.o. daily Continue apixaban 5 mg twice daily Acute on chronic hypoxemic respiratory failure: Community-acquired pneumonia, covering Gram-positive, Gram-negative, and atypical Acute exacerbation of COPD Bilateral Pleural Effusion Blood cultures negative so far Leukocytosis significantly improved; WBC trended down from 15.7 to 8.5 today Perfusing well with 1 L oxygen via nasal cannula - maintain oxygen saturation between 89 and 92% -use BiPAP if required Solu-Medrol 40 mg IV twice daily Continue Rocephin 1 g IV daily Continue Azithromycin 500 mg IV daily (2/3) DuoNeb nebulization every 4 hours scheduled DuoNeb nebulization every 2 hours as needed Incentive spirometry, and flutter Acute CHFpEF: Pulmonary Hypertension Cor-Pulmonale Echo 11/06/24 shows EF 55-60%, RVSP 57mmg B/P Pleural Effusion; CHF related vs Parapneumonic Effusion. Likely CHF related If respiratory distress, respiratory acidosis, and/or hypoxia persist on oxygen therapy, use BiPAP Patient is in acute decompensation and evidence of volume overload is conspicuous Lasix 40 mg IV daily initiated Strictly monitor JASON's Sodium restriction <2gm/day; fluid restriction 1.5 L/day Venous thromboembolism prophylaxis; low-dose unfractionated heparin Diagnostic and therapeutic thoracentesis performed; 2000 cc fluid drained from right side Elevated troponins: Likely type 2 SD/demand ischemia Trending down, EKG negative for acute ischemic changes End-stage renal disease: On hemodialysis; Monday and Monday Monitor S. Electrolytes i.e potassium and magnesium daily BUN/Creatinine often rise during diuretic RX, monitory carefully Renal diet Nephrology on board, undergone hemodialysis with 4 L removed Diabetes mellitus type 2 A1C is 5.9 On insulin glargine 20 units, insulin lispro sliding scale at home Hyperglycemia hypoglycemia protocol in place Hypertension: Continue amlodipine Cardizem Hyperlipidemia: Continue atorvastatin CAD s status post CABG: Continue treating Acute CHFpEF GDMT when stable DVT prophylaxis: Eliquis Code status: Full code Joseph Aguiar Internal Medicine Resident Date of Service: November 30, 2024 Billing Provider: SKYLAR ROLDAN MD,JOSEPH, RES November 30, 2024 11:09
--- NOTE | 2024-11-30 12:24 | PROGRESS NOTE ---
Progress Note Dictate Providers to CC ~ Progress Note: 64-year-old male history of end-stage renal disease on dialysis I believed to be a Monday schedule, who was brought to the ED as a transfer from another facility for AFib with RVR, at the end of dialysis yesterday the nurses remove the needle from his fistula, unfortunately he developed uncontrolled bleeding, he was sent to the ED where a suture was placed and hemo- hemostasis was obtained, he was transferred to [facility] for further care and evaluation, he had dialysis on , again on Monday without complications. Antibiotic Ordered?: N/A Subjective Subjective He reports doing well this morning, he has noticed a big improvement since his dialysis on , anticipate his discharge possibly on Monday morning Objective Vitals Vital Signs Date Time Temp Pulse Resp B/P (MAP) Pulse Ox O2 Delivery O2 Flow Rate FiO2 11/30/24 11:48 92 20 Nasal Cannula 1.0 11/30/24 11:41 96 24 11/30/24 02:00 98.0 92/63 (73) Lab Results: 11/30/24 0624 11/30/24 0624 Objective General: Well appearing, well nourished, in no distress. Oriented x 3, Neck: Supple, without JVD Heart: Regular rate and rhythm, no murmur Lungs: Clear to auscultation and percussion Abdomen: Bowel sounds normal, no tenderness, organomegaly, masses, or hernia Extremities: No cyanosis, no edema, peripheral pulses intact Neurologic: Sensation to touch, normal. DTRs normal moves all extremities spontaneously. Other Results I & O 11/30/24 07:00 Intake Total 1100 ml Output Total 4000 ml Balance -2900 ml Intake Oral 500 ml Hemodialysis 600 ml Output Hemodialysis 4000 ml Problem\Assessment\Plan Problems/Diagnosis: (1) ESRD (end stage renal disease) Assessment & Plan: Initially he was found to be hypervolemic, had additional dialysis yesterday, he reports doing well, I do not believe that he needs dialysis again today, will assess daily for his need, but will likely need dialysis Monday if he discharges that day, he can follow-up with his normal outpatient dialysis the next day on Monday and remain on schedule. (2) COPD exacerbation Assessment & Plan: Improved with medical management by primary team Sepsis Screening Skin Color: Normal WALL,SADA M III DO November 30, 2024 12:24
[2024-11-30] MEDS: lactulose 20gm/30ml cup PO SCH (16:10)
[2024-11-30] MEDS ORDERED: glucagon, human recombinant 1mg kit SUBCUT PRN (17:25)
[2024-11-30] MEDS ORDERED: DEXTROSE 15 GM of carb/4 tabs (each vial/BOTTLE has 4 tablets) PO PRN ×2 (17:25)
[2024-11-30] MEDS ORDERED: dextrose 50%-water 50ml dispensing syringe IV PRN ×2 (17:25)
[2024-11-30] MEDS: INSULIN LISPRO 100 UNIT/ML INSULN.PEN MULTI-DOSE SQ SCH (21:09)
[2024-12-01] VITALS (28 sets, daily range): BP systolic 87–116; BP diastolic 53–79; PULSE 90–121; RESP 16–30; TEMP 97.2–98.2; O2SAT 93–99
--- NOTE | 2024-12-01 06:22 | RADIOLOGY REPORT ---
INDICATION: ascites, abdominal distension TECHNIQUE: Real time ultrasonography of the 4 quadrants was performed. COMPARISON: None IMPRESSION: Small to moderate amount of free fluid in the abdominal quadrants most pronounced in the left upper a nd left lower quadrant.
[2024-12-01 06:27] LABS: BASOPHILS % (AUTO) 0.3 % (0-1); EOSINOPHILS % (AUTO) 0 % (0-6); HEMATOCRIT 27.5 % (42.0-52.0); HEMOGLOBIN 9.2 g/dl (14.0-17.9); LYMPHOCYTES # (AUTO) 0.2 X10'3 (1.1-4.8); LYMPHOCYTES % (AUTO) 1.6 % (21-51); MEAN CORPUSCULAR HEMOGLOBIN 31.8 PG (27.0-31.0); MEAN CORPUSCULAR HGB CONC 33.4 g/dL (33.0-36.5); MEAN PLATELET VOLUME 9.1 FL (7.4-10.4); MONOCYTES # (AUTO) 0.4 X10'3 (0-0.9); MONOCYTES % (AUTO) 3.5 % (2-12); NEUTROPHILS % (AUTO) 94.6 % (42-75); PLATELET COUNT 92 X10'3 (140-440); RED BLOOD COUNT 2.89 X10'6 (4.70-6.10); RED CELL DISTRIBUTION WIDTH 15.8 % (11.5-14.5); WHITE BLOOD COUNT 10.6 X10'3 (4.5-11.0)
[2024-12-01 07:02] LABS: ALANINE AMINOTRANSFERASE 31 U/L (12-78); ALBUMIN 3.5 G/DL (3.4-5.0); ALBUMIN/GLOBULIN RATIO 1.4 (1.1-1.5); ALKALINE PHOSPHATASE 48 IU/L (46-116); ANION GAP 13 (8-16); ASPARTATE AMINO TRANSFERASE 16 U/L (10-37); BILIRUBIN,TOTAL 0.4 MG/DL (0.1-1.0); BLOOD UREA NITROGEN 79 MG/DL (7-18); BUN/CREATININE RATIO 15.3 (10.0-20.0); CALCIUM 8.7 MG/DL (8.5-10.1); CHLORIDE 97 MMOL/L (99-107); CREATININE 5.16 MG/DL (0.60-1.10); GLUCOSE 262 MG/DL (70-104); MAGNESIUM 2.1 MG/DL (1.5-2.4); PHOSPHORUS 6.8 MG/DL (2.3-4.5); POTASSIUM 5.3 MMOL/L (3.5-5.1); SODIUM 136 MMOL/L (135-145); TOTAL CARBON DIOXIDE 26.1 MMOL/L (24-32); eCRCL 14 ML/MIN; eGFR 11 ML/MIN
[2024-12-01] MEDS ORDERED: normal saline 1000ml 100 ML IV PRN (07:35)
[2024-12-01] MEDS: LIDOcaine 1% (10mg/ml) 2ml vial SQ ONE (08:51)
[2024-12-01] MEDS: calcium acetate 667mg (PhosLO) capsule PO SCH (09:12)
--- NOTE | 2024-12-01 09:31 | PROGRESS NOTE- Residence ---
Progress Note - Resident Providers to CC Resident Creating Document: JOSEPH AGUIAR RES ~ Antibiotic Timeout Antibiotic Ordered?: Yes Subjective Patient was seen and examined at bedside while undergoing HD. He is doing significantly better. Notably, although his baseline oxygen is 3 L, he is perfusing well with only 1 L. His white cell count has trended down. This is a readmission. To help prevent future readmissions, I discussed the option of SNF with the patient. However, he declined, stating that he needs to care for his rescue cat and fish tank at home. He lives alone and his friend Isai stopped by often. He did agree to arrange for home health services upon discharge. Objective Vital Signs Date Time Temp Pulse Resp B/P (MAP) Pulse Ox O2 Delivery O2 Flow Rate FiO2 12/01/24 09:10 98.2 107 22 108/64 (79) 95 Nasal Cannula 1.0 12/01/24 07:50 24 General: Awake and Alert, no acute distress. On 1 L supplemental oxygen HEENT: Conjunctiva pink, Sclera clear, Mucus Membranes moist. Neck: Supple without masses and tenderness. Resp: Air entry has significantly reduced on the right side and moderately reduced on the left side Heart: Irregular rhythm Abdomen: Abdomen mildly distended, no organomegaly Extremities: No cyanosis,clubbing or edema. Skin: Warm and Dry Result Diagram: 12/01/2460212/01/24602 Advance Care Planning Advanced Care plannin - 30 Minutes Assessment Assessment Assessment and plan: 64-year-old male history of end-stage renal disease on dialysis, COPD on 3 L O2, coronary artery disease, CABG x4, hypertension, hyperlipidemia, diabetes mellitus, and atrial fibrillation who presents to the ED as a transfer from another facility for AFib with RVR. Plan Plan Paroxysmal atrial fibrillation with RVR: Rate controlled Received amiodarone and diltiazem infusion Currently, in sinus rhythm. Amiodarone drip discontinued Amiodarone 200 mg p.o. twice daily initiated Continue Cardizem 120 mg p.o. daily Continue apixaban 5 mg twice daily Acute on chronic hypoxemic respiratory failure: Community-acquired pneumonia, covering Gram-positive, Gram-negative, and atypical Acute exacerbation of COPD Bilateral Pleural Effusion Blood cultures negative so far Leukocytosis significantly improved; WBC trended down from 15.7 to 8.5 today Perfusing well with 1 L oxygen via nasal cannula - maintain oxygen saturation between 89 and 92% -use BiPAP if required Solu-Medrol 40 mg IV twice daily Continue Rocephin 1 g IV daily Continue Azithromycin 500 mg IV daily (2/3) DuoNeb nebulization every 4 hours scheduled DuoNeb nebulization every 2 hours as needed Incentive spirometry, and flutter Acute CHFpEF: Pulmonary Hypertension Cor-Pulmonale Echo 11/06/24 shows EF 55-60%, RVSP 57mmg B/P Pleural Effusion; CHF related vs Parapneumonic Effusion. Likely CHF related If respiratory distress, respiratory acidosis, and/or hypoxia persist on oxygen therapy, use BiPAP Patient is in acute decompensation and evidence of volume overload is conspicuous Lasix 40 mg IV daily initiated Strictly monitor JASON's Sodium restriction <2gm/day; fluid restriction 1.5 L/day Venous thromboembolism prophylaxis; low-dose unfractionated heparin Diagnostic and therapeutic thoracentesis performed; 2000 cc fluid drained from right side Elevated troponins: Likely type 2 OH/demand ischemia Trending down, EKG negative for acute ischemic changes End-stage renal disease: On hemodialysis; Monday and Monday Monitor S. Electrolytes i.e potassium and magnesium daily BUN/Creatinine often rise during diuretic RX, monitory carefully Renal diet Nephrology on board, undergoing dialysis Diabetes mellitus type 2 A1C is 5.9 On insulin glargine 20 units, insulin lispro sliding scale at home Hyperglycemia hypoglycemia protocol in place Hypertension: Continue amlodipine Cardizem Hyperlipidemia: Continue atorvastatin CAD s status post CABG: Continue treating Acute CHFpEF GDMT when stable DVT prophylaxis: Eliquis Code status: Full code Disposition: This is a readmission. To help prevent future readmissions, I discussed the option of SNF with the patient. However, he declined, stating that he needs to care for his rescue cat and fish tank at home. He lives alone and his friend Isai stops by more often. He did agree to arrange for home health services upon discharge. He will also require longer prednisolone taper and antibiotic on discharge. Joseph Aguiar Internal Medicine Resident Date of Service: December 01, 2024 Billing Provider: SKYLAR ROLDAN MD, SHAMS, DREW December 01, 2024 09:31
[2024-12-01] MEDS: heparin 1,000 units/ml 10ml inj HE ONE ×2 (10:16)
[2024-12-01] MEDS: albumin (human) 25% 100ml IV 100 ML IV PRN (10:16)
--- NOTE | 2024-12-01 10:19 | PROGRESS NOTE ---
Progress Note Dictate Providers to CC ~ Antibiotic Ordered?: N/A Subjective Subjective He reports doing well overnight, has no specific concerns, nurses report no new events since last evaluation, last dialysis was on Monday and , will plan to dialyze today, he is likely discharge tomorrow and follow-up with his usual dialysis on Monday Objective Vitals Vital Signs Date Time Temp Pulse Resp B/P (MAP) Pulse Ox O2 Delivery O2 Flow Rate FiO2 12/01/24 10:10 112 20 104/65 (78) 97 Nasal Cannula 1.0 12/01/24 09:10 98.2 12/01/24 07:50 24 Lab Results: 12/01/24 0603 12/01/24 0603 Objective Constitutional: Denies fever, chills, weight loss, or fatigue. HEENT (Head, Ears, Eyes, Nose, Throat): Denies headaches, ear pain, vision changes, or nasal congestion. Cardiovascular: Denies chest pain, palpitations, or shortness of breath. Respiratory: Denies cough, shortness of breath, or wheezing. Gastrointestinal: Denies abdominal pain, nausea, vomiting, or diarrhea. Genitourinary: Denies painful urination or changes in urinary frequency. Musculoskeletal: Denies joint pain or stiffness. Neurological: Denies numbness, weakness, or dizziness. Psychiatric: Denies anxiety or depression. Integumentary: Denies rash or skin lesions. Hematologic: Denies easy bruising or bleeding. Endocrine: Denies excessive thirst or urination. General: Well appearing, well nourished, in no distress. Oriented x 3, Neck: Supple, without JVD Heart: Regular rate and rhythm, no murmur Lungs: Clear to auscultation and percussion Abdomen: Bowel sounds normal, no tenderness, organomegaly, masses, or hernia Extremities: No cyanosis, no edema, peripheral pulses intact Neurologic: Sensation to touch, normal. DTRs normal moves all extremities spontaneously. Other Results I & O 12/01/24 07:00 Intake Total 820 ml Output Total 1 ml Balance 819 ml Intake Oral 520 ml Other 300 ml Output Stool Total 1 ml # Voids 3 Problem\Assessment\Plan Problems/Diagnosis: (1) ESRD (end stage renal disease) Assessment & Plan: Initially he was found to be hypervolemic, had additional dialysis yesterday, he reports doing well, we will plan for dialysis today, he is likely discharge tomorrow, follow-up with his normal dialysis on Monday, he and I discussed the schedule and he is agreeable (2) COPD exacerbation Assessment & Plan: Improved with medical management by primary team Sepsis Screening Skin Color: Normal SADA COSTELLO III DO December 01, 2024 10:19
[2024-12-01] MEDS: EPOETIN ALFA-EPBX 20,000 UNIT/ML 1 ML MDV IV ONE (11:00)
[2024-12-02] VITALS (11 sets, daily range): BP systolic 104–111; BP diastolic 65–69; PULSE 82–116; RESP 18–34; TEMP 97–97.8; O2SAT 92–99
[2024-12-02 08:35] LABS: BASOPHILS % (AUTO) 0.1 % (0-1); EOSINOPHILS % (AUTO) 0 % (0-6); HEMATOCRIT 29.3 % (42.0-52.0); HEMOGLOBIN 9.5 g/dl (14.0-17.9); LYMPHOCYTES # (AUTO) 0.4 X10'3 (1.1-4.8); LYMPHOCYTES % (AUTO) 2.7 % (21-51); MEAN CORPUSCULAR HEMOGLOBIN 30.8 PG (27.0-31.0); MEAN CORPUSCULAR HGB CONC 32.4 g/dL (33.0-36.5); MEAN CORPUSCULAR VOLUME 95.2 FL (78-98); MEAN PLATELET VOLUME 8.6 FL (7.4-10.4); MONOCYTES % (AUTO) 6.7 % (2-12); NEUTROPHILS # (AUTO) 13.5 X10'3 (1.8-7.7); NEUTROPHILS % (AUTO) 90.5 % (42-75); PLATELET COUNT 100 X10'3 (140-440); RED BLOOD COUNT 3.08 X10'6 (4.70-6.10); RED CELL DISTRIBUTION WIDTH 16.1 % (11.5-14.5); WHITE BLOOD COUNT 14.9 X10'3 (4.5-11.0)
[2024-12-02 08:53] LABS: ALANINE AMINOTRANSFERASE 47 U/L (12-78); ALBUMIN 3.6 G/DL (3.4-5.0); ALBUMIN/GLOBULIN RATIO 1.4 (1.1-1.5); ALKALINE PHOSPHATASE 51 IU/L (46-116); ANION GAP 11 (8-16); ASPARTATE AMINO TRANSFERASE 24 U/L (10-37); BILIRUBIN,TOTAL 0.5 MG/DL (0.1-1.0); BLOOD UREA NITROGEN 72 MG/DL (7-18); BUN/CREATININE RATIO 15.4 (10.0-20.0); CALCIUM 8.9 MG/DL (8.5-10.1); CHLORIDE 100 MMOL/L (99-107); CREATININE 4.67 MG/DL (0.60-1.10); GLUCOSE 238 MG/DL (70-104); MAGNESIUM 2.2 MG/DL (1.5-2.4); PHOSPHORUS 6.5 MG/DL (2.3-4.5); POTASSIUM 5.4 MMOL/L (3.5-5.1); SODIUM 135 MMOL/L (135-145); TOTAL CARBON DIOXIDE 24.5 MMOL/L (24-32); TOTAL PROTEIN 6.2 G/DL (6.4-8.2); eCRCL 16 ML/MIN; eGFR 13 ML/MIN
[2024-12-02 09:00] LABS: TOTAL CELLS COUNTED 100
[2024-12-02 09:01] LABS: ANISOCYTOSIS 1+; PLATELET ESTIMATE DECREASED
--- NOTE | 2024-12-02 10:24 | PROGRESS NOTE- Residence ---
Progress Note - Resident Providers to CC Resident Creating Document: MICHELLE MENA, RES ~ Central Line/PICC still needed: Yes Central Line/PICC Necessity: Req HD/Plasmapheresis Baugh-Non Protocol Baugh Indications Met/Not Met: F/C Indications Not Met Antibiotic Timeout Antibiotic Ordered?: Yes Subjective Patient was seen and examined at bedside. Patient is currently on 2 L of oxygen through nasal cannula. Patient mentions that the breathing is about the same. He uses 3 L of oxygen at home at baseline. He lives alone and takes care of himself. He was given an option to go to a SNF with the hospitalist team however the patient declined. He will be discharged today on home health services. He is supposed to get dialysis tomorrow at [facility]. Instructions given. He follows Dr. Johnson for his ESRD. Objective Vital Signs Date Time Temp Pulse Resp B/P (MAP) Pulse Ox O2 Delivery O2 Flow Rate FiO2 12/02/24 08:03 90 18 Nasal Cannula 1.0 12/02/24 07:56 98 24 12/02/24 02:00 97.0 106/69 (81) Result Diagram: 12/02/24 0816 12/02/24 0816 Advance Care Planning Advanced Care plannin - 30 Minutes Assessment Assessment Assessment and plan: 64-year-old male history of end-stage renal disease on dialysis, COPD on 3 L O2, coronary artery disease, CABG x4, hypertension, hyperlipidemia, diabetes mellitus, and atrial fibrillation who presents to the ED as a transfer from another facility for AFib with RVR. Plan Plan End-stage renal disease: On hemodialysis; Monday and Monday Monitor S. Electrolytes i.e potassium and magnesium daily BUN/Creatinine often rise during diuretic RX, monitory carefully Renal diet Nephrology on board, undergoing dialysis Paroxysmal atrial fibrillation with RVR: Rate controlled Received amiodarone and diltiazem infusion Currently, in sinus rhythm. Amiodarone drip discontinued Amiodarone 200 mg p.o. twice daily initiated Continue Cardizem 120 mg p.o. daily Continue apixaban 5 mg twice daily Acute on chronic hypoxemic respiratory failure: Community-acquired pneumonia, covering Gram-positive, Gram-negative, and atypical Acute exacerbation of COPD Bilateral Pleural Effusion Blood cultures negative so far Leukocytosis significantly improved; WBC trended down from 15.7 to 8.5 today Perfusing well with 1 L oxygen via nasal cannula - maintain oxygen saturation between 89 and 92% -use BiPAP if required Solu-Medrol 40 mg IV twice daily Continue Rocephin 1 g IV daily Continue Azithromycin 500 mg IV daily (2/3) DuoNeb nebulization every 4 hours scheduled DuoNeb nebulization every 2 hours as needed Incentive spirometry, and flutter Acute CHFpEF: Pulmonary Hypertension Cor-Pulmonale Echo 11/06/24 shows EF 55-60%, RVSP 57mmg B/P Pleural Effusion; CHF related vs Parapneumonic Effusion. Likely CHF related If respiratory distress, respiratory acidosis, and/or hypoxia persist on oxygen therapy, use BiPAP Patient is in acute decompensation and evidence of volume overload is conspicuous Lasix 40 mg IV daily initiated Strictly monitor JASON's Sodium restriction <2gm/day; fluid restriction 1.5 L/day Venous thromboembolism prophylaxis; low-dose unfractionated heparin Diagnostic and therapeutic thoracentesis performed; 2000 cc fluid drained from right side Elevated troponins: Likely type 2 DC/demand ischemia Trending down, EKG negative for acute ischemic changes Diabetes mellitus type 2 A1C is 5.9 On insulin glargine 20 units, insulin lispro sliding scale at home Hyperglycemia hypoglycemia protocol in place Hypertension: Continue amlodipine Cardizem Hyperlipidemia: Continue atorvastatin CAD s status post CABG: Continue treating Acute CHFpEF GDMT when stable DVT prophylaxis: Eliquis Code status: Full code Disposition: Discharge today Michelle Salguero Internal Medicine Resident Attending note: Care plan reviewed. agree with above. patient is getting discharged today and will continue outpatient dialysis as usual. He has been counseled by me multiple times to be compliant with fluid rstriction and also his routine dialysis. He promises to do so. COPD exacerbation is better. Afib RVR better. Rm De La Fuente MD Nephrology Date of Service: December 02, 2024 Billing Provider: RM DE LA FUENTE MD, DEEPIKA BANDI, RES December 02, 2024 10:24 RM DE LA FUENTE MD December 02, 2024 16:55
[2024-12-02] MEDS ORDERED: PRED10TA23 PO (13:18)
[2024-12-02] MEDS ORDERED: CEFD300C3 PO (13:18)
[2024-12-02] MEDS ORDERED: AMI200T PO (13:21)
[2024-12-02] MEDS ORDERED: LACT1CAP26 PO (13:22)
--- NOTE | 2024-12-02 16:19 | DISCHARGE SUMMARY-Residence ---
Discharge Summary Providers to CC Resident Creating Document: ELI CRAWFORD, RES ~ Discharge Summary Admission Diagnosis: AFIB with RVR Hospital Course DATE OF ADMISSION: 11/29/2024 DATE OF DISCHARGE: 12/02/2024 Labs at the time of discharge WBC 14.9 Hemoglobin 9.5 Platelet count 100 Sodium 135 Potassium 5.4 Creatinine 4.67 Blood cultures no growth after three days Respiratory culture showed Gram-negative rods Abdominal ultrasound-Small to moderate amount of free fluid in the abdominal quadrants most pronounced in the left upper and left lower quadrant. Discharge Diagnosis\Comment: Atrial fibrillation with rapid ventricular rate next Acute on chronic hypoxemic respiratory failure Community-acquired pneumonia, covering Gram-positive, Gram-negative and atypical Acute exacerbation of COPD Bilateral pleural effusion Acute exacerbation of chronic CHF with preserved ejection, pulmonary hypertension, cor pulmonale Elevated troponins secondary to type 2 FL End-stage renal disease Type 2 diabetes mellitus Hypertension Operations\Procedures: Thoracocentesis by Dr. Swan Consultants: Dr. Karla Swan Complications: None Condition on DC: Stable New Medications: Cefdinir* (Cefdinir*) 300 Mg Capsule 1 CAP PO Q12H for 3 Days, #6 CAP Lactobacillus Rhamnosus (Culturelle) 10 Billion Cell Capsule 1 CAP PO DAILY for 30 Days, #30 CAP 0 Refills Prednisone (Prednisone) 10 Mg Tablet 0 PO DAILY, #42 TAB Take 4 tabs daily x4 days, then 3 daily x4 days 2 daily x4 days 1 daily x4 days 1/2 daily x4 days then STOP Amiodarone Hcl (Cordarone) 200 Mg Tablet 200 MG PO BID for 30 Days, #60 TAB Continued Medications: Albuterol (Albuterol) 17 Gm Aerosol 1-2 PUFFS PO Q4H PRN for SOB or wheezing Amlodipine Besylate (Amlodipine Besylate) 2.5 Mg Tablet 1 TAB PO DAILY Apixaban (Eliquis) 5 Mg Tablet 1 TAB PO Q12H for 30 Days, #60 TAB 0 Refills Aspirin (Aspirin EC) 81 Mg Tablet.dr 1 TABLET PO DAILY, #90 TABLET 3 Refills Atorvastatin Calcium (Atorvastatin Calcium) 40 Mg Tablet 1 TAB PO DAILY for cholesterol Diltiazem HCl (Cardizem LA) 120 Mg Tab.er.24h 120 MG PO DAILY Ergocalciferol (Vitamin D2) (Vitamin D2) 1,250 Mcg Capsule 1 CAP PO Q7D PT TAKES ON MONDAYS Ezetimibe (Ezetimibe) 10 Mg Tablet 1 TAB PO DAILY Febuxostat (Febuxostat) 40 Mg Tablet 1 TAB PO DAILY for gout pain Furosemide* (Lasix*) 20 Mg Tablet 2 TAB PO BID for 30 Days, #30 TAB Hydralazine HCl (Hydralazine HCl) 50 Mg Tablet 1 TAB PO BID Insulin Glargine,Hum.rec.anlog (Basaglar Kwikpen U-100) 100 Unit/1 Ml Insuln.pen 20 UNITS SQ HS Insulin Lispro (Humalog) 100 Unit/1 Ml Insuln.pen 1 UNIT SQ SLIDING SCALE Irbesartan (Irbesartan) 150 Mg Tablet 1 TAB PO DAILY Isosorbide Dinitrate* (Isordil*) 30 Mg Tablet 1 TAB PO DAILY Mometasone/Formoterol (Dulera 200 Mcg/5 Mcg Inhaler) 13 Gm Hfa.aer.ad 2 PUFFS IH BID Tenapanor HCl (Xphozah) 30 Mg Tablet 1 TAB PO BID Discontinued Medications: Apixaban (Eliquis) 5 Mg Tablet 1 TAB PO BID Diltiazem HCl (Diltiazem ER) 120 Mg Cap.er.12h 1 CAP PO DAILY for 30 Days, #30 CAP 0 Refills Febuxostat (Febuxostat) 40 Mg Tablet 1 TAB PO DAILY for 30 Days, #30 TAB 0 Refills Prednisone (Prednisone) 10 Mg Tablet 10 MG PO DAILY, #42 TAB Take 4 tabs daily x4 days, then 3 daily x4 days 2 daily x4 days 1 daily x4 days 1/2 daily x4 days then STOP Discharge Summary: This is a 64-year-old male history of end-stage renal disease on dialysis, COPD on 3 L O2, coronary artery disease, CABG x4, hypertension, hyperlipidemia, diabetes mellitus, and atrial fibrillation who presents to the ED as a transfer from another facility for AFib with RVR. After patient finished dialysis session today as dialysis nurses taken out his catheter from the fistula started to blee d uncontrollably. They are unable to stopped the bleeding so he is transferred to a hospital where the bleeding site was sutured. After the bleeding was controlled patient's heart rate jumped to the 140s and was found to be in AFib RVR. He was started on amiodarone diltiazem and transferred to [facility] for higher level of care. Patient is still continued to be on both amio diltiazem heart rate has come down to the 100s continues to be in AFib. Patient was continued on diltiazem 120 mg daily, amiodarone 200 mg b.i.d. and apixaban 5 mg b.i.d.. Patient's heart rate has been controlled but continues to be in AFib. Patient was also found to be in acute on chronic hypoxemic respiratory failure secondary to community-acquired pneumonia and COPD exacerbation and bilateral pleural effusion. Leukocytosis trended down, started on Solu-Medrol 40 mg IV b.i.d., Rocephin and azithromycin, DuoNebs. Acute on chronic CHF with a preserved ejection fraction, pulmonary hypertension, cor pulmonale. Chest x-ray showed bilateral pleural effusion, echo showed an ejection fraction of 55-60% with an RVSP of 57. Started on loss Lasix 40 mg IV daily. Diagnostic and therapeutic thoracocentesis done by Dr. Swan, 2000 cc of fluid drained on the right side. Also has elevated troponins, trended down, likely secondary to type 2 FL. Also managed for end-stage renal disease, on hemodialysis Monday, , Monday. Dr. Acosta was following the patient here. Patient has a history of diabetes, continued Lantus 20 units and insulin protocol Continued home medication amlodipine for hypertension Continue home medication atorvastatin for hyperlipidemia. Patient has improved clinically and is stable enough to be discharged home. At the time of discharge he had the following physical examination findings General: Awake and Alert, no acute distress. On 1 L supplemental oxygen HEENT: Conjunctiva pink, Sclera clear, Mucus Membranes moist. Neck: Supple without masses and tenderness. Resp: Air entry has significantly reduced on the right side and moderately reduced on the left side Heart: Irregular rhythm Abdomen: Abdomen mildly distended, no organomegaly Extremities: No cyanosis,clubbing or edema. Skin: Warm and Dry Discharge instructions Follow-up with PCP in two weeks Follow up with identification officer in two weeks Continue to take Cardizem, amiodarone, apixaban. Continue take cefdinir, tapering dose of prednisone. Call 911 or return to ER in case of chest pain, shortness of breath, palpi tations. *Problems/Diagnosis: (1) ESRD (end stage renal disease) (2) COPD exacerbation Status: Acute (3) Atrial fibrillation (4) Pleural effusion Total Time Spent on D/C: Up to 30 Minutes Date of Service: December 02, 2024 Billing Provider: SKYLAR ROLDAN MD, PRAVAHIKA, RES December 02, 2024 16:18
== END 2024-12-02 16:00 | disposition home health service (06) | DRG 201 ==
LOC: ER 00:31 → ED HOLD 05:08 → EDBEDREQ 06:09 → PCU 3S 07:24
PROVIDERS: ADMIT Internal Medicine Critical Care Medicine; ATTEND Family Medicine
PROC: 5A09357 Assistance with Respiratory Ventilation, Less than 24 Consecutive Hours, Continuous Positive Airway Pressure (ICD-10-PCS; principal; 2024-11-29)
PROC: 0W9930Z Drainage of Right Pleural Cavity with Drainage Device, Percutaneous Approach (ICD-10-PCS; 2024-11-29)
PROC: 5A1D70Z Performance of Urinary Filtration, Intermittent, Less than 6 Hours Per Day (ICD-10-PCS; 2024-11-29)
PROC: 5A1D70Z Performance of Urinary Filtration, Intermittent, Less than 6 Hours Per Day (ICD-10-PCS; 2024-12-01)
DX: I48.0 Paroxysmal atrial fibrillation (principal); J96.21 Acute and chronic respiratory failure with hypoxia; I50.33 Acute on chronic diastolic (congestive) heart failure; I21.A1 Myocardial infarction type 2; J15.69 Pneumonia due to other Gram-negative bacteria; I27.20 Pulmonary hypertension, unspecified; N18.6 End stage renal disease; J91.8 Pleural effusion in other conditions classified elsewhere; I27.81 Cor pulmonale (chronic); I13.2 Hypertensive heart and chronic kidney disease with heart failure and with stage 5 chronic kidney disease, or end stage renal disease; J44.1 Chronic obstructive pulmonary disease with (acute) exacerbation; E11.22 Type 2 diabetes mellitus with diabetic chronic kidney disease; E78.5 Hyperlipidemia, unspecified; K21.9 Gastro-esophageal reflux disease without esophagitis; I25.10 Atherosclerotic heart disease of native coronary artery without angina pectoris; Z87.891 Personal history of nicotine dependence; Z95.1 Presence of aortocoronary bypass graft; Z99.2 Dependence on renal dialysis; Z99.81 Dependence on supplemental oxygen; Z88.8 Allergy status to other drugs, medicaments and biological substances; Z86.73 Personal history of transient ischemic attack (TIA), and cerebral infarction without residual deficits
CPT/HCPCS: 32555; 36415; 36600; 71045; 76705; 80053; 82803; 82948; 83605; 83735; 83880; 84100; 84484; 85007; 85018; 85025; 87040; 87070; 87077; 87081; 87186; 93005; 94640; 94660; 94760; 94799; 97161; 97530; 99291; A4615; A6449; E1594; G0257; G0378; J0282; J0456; J0696; J1644; J1815; J1940; J2003; J2919; J3490; J7030; J7040; P9047; Q4081

== ENCOUNTER 2024-12-10 12:32 | Inpatient (IN) | payer MEDICAID ==
[2024-12-10] VITALS (14 sets, daily range): BP systolic 85–119; BP diastolic 50–62; PULSE 71–112; RESP 15–35; TEMP 97.3–97.9; O2SAT 95–100
[~2024-12-10] VITALS: Ht 172.7 cm; Wt 96.0 kg
[~2024-12-10 12:32] MED LIST changes: +AMI200T PO; -CEFD300C3 PO; -DILT120C19 PO; +LACT1CAP26 PO; -METO-411 PO
--- NOTE | 2024-12-10 12:53 | ELECTROCARDIOGRAPH REPORT ---
[facility] Test Date: 2024-12-10 Test Time: 12:37:07 Pat Name: GALILEO CABEZAS Department: EMERGENCY ROOM Room: Gender: M Tanner [employer] Continuous Process: DANIEL : 1960 Requested By: CHELSY ORDAZ Order Number: [id number] Reading MD: Measurements Intervals Sloan Rate: 82 P: 0 WY: 0 QRS: 66 QRSD: 159 T: 57 QT: 362 QTc: 423 Interpretive Statements Atrial fibrillation Paired ventricular premature complexes Nonspecific intraventricular conduction delay Consider anterior infarct Minimal ST depression, anterolateral leads Please click the below link to view image of tracing.
[2024-12-10 13:13] LABS: BASOPHILS % (AUTO) 0.1 % (0-1); EOSINOPHILS % (AUTO) 0.1 % (0-6); HEMATOCRIT 26.3 % (42.0-52.0); HEMOGLOBIN 8.3 g/dl (14.0-17.9); LYMPHOCYTES # (AUTO) 0.3 X10'3 (1.1-4.8); LYMPHOCYTES % (AUTO) 2.2 % (21-51); MEAN CORPUSCULAR HEMOGLOBIN 31.1 PG (27.0-31.0); MEAN CORPUSCULAR HGB CONC 31.6 g/dL (33.0-36.5); MEAN CORPUSCULAR VOLUME 98.2 FL (78-98); MEAN PLATELET VOLUME 8.4 FL (7.4-10.4); MONOCYTES # (AUTO) 0.9 X10'3 (0-0.9); MONOCYTES % (AUTO) 7.2 % (2-12); NEUTROPHILS # (AUTO) 11.4 X10'3 (1.8-7.7); NEUTROPHILS % (AUTO) 90.4 % (42-75); PLATELET COUNT 118 X10'3 (140-440); RED BLOOD COUNT 2.68 X10'6 (4.70-6.10); RED CELL DISTRIBUTION WIDTH 18.5 % (11.5-14.5); WHITE BLOOD COUNT 12.6 X10'3 (4.5-11.0)
--- NOTE | 2024-12-10 13:13 | RADIOLOGY REPORT ---
EXAM: DI CHEST,SINGLE VIEW Indication: CP Technique: Single frontal view of the chest was obtained Comparison: DI CHEST,SINGLE VIEW on DOS: 11/29/24, XR CHEST 1 VIEW AP OR PA on DOS: 11/28/24, DI CHEST, SINGLE VIEW on DOS: 11/25/24, DI CHEST,SINGLE VIEW on DOS: 11/23/24, DI CHEST,SINGLE VIEW on DOS: 5 FINDINGS: Lines and Tubes: None Lungs: Small bilateral pleural effusions. Multifocal consolidative opacities No pneumothorax. Cardiomediastinal contours: Cardiomegaly Bones: No acute osseous abnormality. IMPRESSION: Small bilateral pleural effusions. Multifocal consolidative opacities.
--- NOTE | 2024-12-10 13:30 | Physician Documentation ---
History of Present Illness ~ Chief Complaint: Shortness of Breath Stated Complaint: SOB/DIALYSIS Time Seen by MD: 12:40 Primary Medical Doctor: Joseph Aguiar MD Mode of Arrival: Ambulatory HPI 64-year-old gentleman with a history of end-stage renal disease on hemodialysis presenting with shortness of breath that has been ongoing for the past couple of days. Patient states that he gets his dialysis on Tuesdays and Saturdays. His public transit bus driver is Dr. Johnson. States that he typically does fine after the dialysis sessions. The day after his last dialysis session he started developing these symptoms. States that they have been gradually worsening. He feels like fluid is building up in his lungs as well as in his abdomen. He denies any chest pain, fevers, chills or other associated symptoms. He does state that is he did some albuterol treatments at home as he also has COPD due to many years of marijuana use. He usually uses 3 L of oxygen at home. States that the oxygen in the treatments were not working this time and thus he presented to the [facility] emergency department. Patient also has a history of atrial fibrillation, coronary artery disease and hypertension with a history of CABG many years ago. The patient was assessed over there and found to be very hypoxic. He was treated and then transferred to our hospital for further treatment and dialysis. Medication Reconciliation Allergies: Coded Allergies: No Known Allergies (Unverified , 12/10/24) Scheduled Amiodarone Hcl (Cordarone), 200 MG PO BID Amlodipine Besylate (Amlodipine Besylate), 1 TAB PO DAILY, (Reported) Apixaban (Eliquis), 1 TAB PO Q12H, (Reported) Aspirin (Aspirin EC), 1 TABLET PO DAILY, (Reported) Atorvastatin Calcium (Atorvastatin Calcium), 1 TAB PO DAILY, (Reported) Diltiazem HCl (Cardizem LA), 120 MG PO DAILY, (Reported) Ergocalciferol (Vitamin D2) (Vitamin D2), 1 CAP PO Q7D, (Reported) Ezetimibe (Ezetimibe), 1 TAB PO DAILY, (Reported) Febuxostat (Febuxostat), 1 TAB PO DAILY, (Reported) Furosemide* (Lasix*), 2 TAB PO BID, (Reported) Hydralazine HCl (Hydralazine HCl), 1 TAB PO BID, (Reported) Insulin Glargine,Hum.rec.anlog (Basaglar Kwikpen U-100), 20 UNITS SQ HS, (Reported) Insulin Lispro (Humalog), 1 UNIT SQ SLIDING SCALE, (Reported) Irbesartan (Irbesartan), 1 TAB PO DAILY, (Reported) Isosorbide Dinitrate* (Isordil*), 1 TAB PO DAILY, (Reported) Lactobacillus Rhamnosus (Culturelle), 1 CAP PO DAILY Midodrine HCl (Midodrine HCl), 1 TAB PO Q12H, (Reported) Mometasone/Formoterol (Dulera 200 Mcg/5 Mcg Inhaler), 2 PUFFS IH BID, (Reported) Prednisone (Prednisone), 0 PO DAILY Tenapanor HCl (Xphozah), 1 TAB PO BID, (Reported) Scheduled PRN Albuterol (Albuterol), 1-2 PUFFS PO Q4H PRN for SOB or wheezing, (Reported) Discontinued Medications Cefdinir* (Cefdinir*), 1 CAP PO Q12H Discontinued Reason: Auto Discontinued Past Medical History Past Medical History: CVA/TIA/Stroke, Coronary Artery Disease, Hypertension, Myocardial Infarction, GERD, Chronic Kidney Disease, Diabetes Past Surgical History: coronary bypass surgery Other Past Surgical History: Four-way bypass Patient History: Patient reports no known family medical history. Alcohol Use: None Drug Use: none Lives In: Home Review of Systems All Other Systems at this time: Reviewed and Negative Physical Exam Vital Signs: Temperature: 97.6, Source: Temporal, Heart Rate: 95, Respiratory Rate: 18, BP: 110/68, Pulse Oximetry: 99, Weight: 96.000 Physical Exam I have reviewed the triage vitals. CONST: In mild respiratory distress HENT: Head Atraumatic EYES: Pupils are equal, round and reactive to light. Normal conjunctiva NECK: Normal range of motion. Supple. CARDIO: Normal rate and regular rhythm. No murmurs, rubs, or gallops. S1, S2. PULM/CHEST: Patient isn't slight respiratory distress. Shallow rapid breaths. Diminished breath sounds bilaterally. ABD: Soft and slightly distended. Nontender Bowel sounds normal. No guar ding. : Exam deferred MSK: 1+ pitting edema in the bilateral lower extremity. Extensive ecchymoses as well as abrasions specifically over the right lower leg. NEURO: Alert and oriented to person, place and time. Moving all extremities SKIN: Warm and dry. PSYCH: Normal mood and affect. Good eye contact. Progress Results/Orders Results/Orders Orders - CHLESY ORDAZ MD Chest,Single View (12/10/24 12:56) Monitor (12/10/24 12:51) Saline Lock (12/10/24 12:51) Oxygen (12/10/24 12:51) Hs Troponin I W Calculations (12/10/24 15:51) Culture Blood (12/10/24 12:52) Cta Chest Ct Abd Pelvis (12/10/24 14:00) Bipap/Cpap (12/10/24 ) Page Hospitalist (12/10/24 14:58) Fill Out Med Reconciliation (12/10/24 14:58) Wound Care Consult (12/10/24 15:16) Cbc/Diff (12/10/24 19:55) Completed Orders - CHELSY ORDAZ MD Chest,Single View (12/10/24 12:56) Cbc/Diff (12/10/24 12:51) PBNP (12/10/24 12:51) Electrocardiogram (12/10/24 12:51) CMP (12/10/24 12:51) Hs Troponin I W Calculations (12/10/24 12:51) Hs Troponin I W Calculations (12/10/24 14:51) Lacticsepsis (12/10/24 12:52) Man Diff (12/10/24 12:49) Albuterol 2.5mg/3ml Nebule (Proventil 2. (12/10/24 13:25) * Rt Notification Q1H (12/10/24 13:23) Methylprednisolone Sod Succ (Solumedrol (12/10/24 13:25) Ceftriaxone/B3p-Ederbzep 1gm (Rocephin 1 (12/10/24 13:35) D-Dimer (12/10/24 13:32) Cta Chest Ct Abd Pelvis (12/10/24 14:00) Insulin Regular, Human (Humulin R 10 Uni (12/10/24 14:55) Dextrose 50%-Water (Dextrose 50%-Water S (12/10/24 14:55) Calcium Gluc 1gm/50ml Nacl,Iso (Calcium (12/10/24 14:55) Medications Received in ER Medications (Trade) Dose Ordered Sig/Ryan Route PRN Reason Start Time Stop Time Status Last Admin Dose Admin (Proventil 2.5 MG/3ML nebule) 2.5 mg ONCE ONCE NEB 12/10/24 13:25 12/10/24 13:26 DC 12/10/24 15:01 2.5 MG (SoluMEDROL 125mg inj) 125 mg ONCE ONCE IV 12/10/24 13:25 12/10/24 13:26 DC 12/10/24 14:43 125 MG Ceftriaxone Sodium 50 ml @ 100 mls/hr ONCE ONCE IV 12/10/24 13:35 12/10/24 14:04 DC 12/10/24 14:43 100 MLS/HR (HumuLIN R 10 units per 0.1 ML syringe) 8 units ONCE ONCE IV 12/10/24 14:55 12/10/24 14:56 DC 12/10/24 15:46 8 UNITS (dextrose 50%-water syringe) 50 ml ONCE ONCE IV 12/10/24 14:55 12/10/24 14:56 DC 12/10/24 15:45 50 ML Calcium Gluconate 50 ml @ 50 mls/hr ONCE ONCE IV 12/10/24 14:55 12/10/24 15:54 DC 12/10/24 15:45 50 MLS/HR Vital Signs 12/10/24 12/10/24 12/10/24 12/10/24 12:35 14:00 15:00 15:05 Temp 97.6 Pulse 95 75 67 84 Resp 18 16 16 20 22 B/P (MAP) 110/68 131/75 (93) 123/67 (85) Pulse Ox 99 100 100 98 FiO2 35 12/10/24 12/10/24 12/10/24 15:09 15:12 16:23 Pulse 81 71 85 Resp 20 22 16 B/P (MAP) 123/67 (85) Pulse Ox 98 100 O2 Delivery BiPAP+ Bi-pap FiO2 35 35 Laboratory Tests Test 12/10/24 12:49 12/10/24 13:33 12/10/24 15:10 White Blood Count 12.6 H Red Blood Count 2.68 L Hemoglobin 8.3 L Hematocrit 26.3 L Mean Corpuscular Volume 98.2 H Mean Corpuscular Hemoglobin 31.1 H Mean Corpuscular Hemoglobin Concent 31.6 L Red Cell Distribution Width 18.5 H Platelet Count 118 L Mean Platelet Volume 8.4 Neutrophils (%) (Auto) 90.4 H Lymphocytes (%) (Auto) 2.2 L Monocytes (%) (Auto) 7.2 Eosinophils (%) (Auto) 0.1 Basophils (%) (Auto) 0.1 Neutrophils # (Auto) 11.4 H Lymphocytes # (Auto) 0.3 L Monocytes # (Auto) 0.9 Eosinophils # (Auto) 0.0 Basophils # (Auto) 0.0 CBC Comment Differential Total Cells Counted 100 Neutrophils % (Manual) 89.0 H Band Neutrophils % 1.0 Lymphocytes % (Manual) 3.0 L Monocytes % (Manual) 4.0 Metamyelocytes % 3.0 H Platelet Estimate Decreased Red Blood Cell Morphology Perf Basophilic Stippling Anisocytosis 2+ Macrocytosis 1+ D-Dimer 1.91 H D-Dimer Comment Sodium Level 138 Potassium Level 6.2 *H Chloride Level 101 Carbon Dioxide Level 25.9 Anion Gap 11 Blood Urea Nitrogen 99 H Creatinine 6.92 H Estimated GFR/1.73 m2 8 BUN/Creatinine Ratio 14.3 Glucose Level 154 H Calcium Level 8.8 Total Bilirubin 0.5 Aspartate Amino Transf (AST/SGOT) 10 Alanine Aminotransferase (ALT/SGPT) 40 Alkaline Phosphatase 55 Troponin I High Sensitivity 158 *H 145 *H Pro-B-Type Natriuretic Peptide > 19314 H Total Protein 6.6 Albumin 3.6 Globulin 3.0 Albumin/Globulin Ratio 1.2 Chemistry Comments Lactic Acid Level 1.5 Troponin I High Sens Percent Delta 8 Troponin I Hi Sens Absolute Change -13 Microbiology Date/Time Source Procedure Growth Status 12/10/24 13:36 Blood Arm Right Blood Culture - Preliminary NEGATIVE (LESS THAN 24 HOURS) Resulted EKG/XRAY/CT/US/VASC/MRI EKG : Additional Comment EKG as interpreted by ED MD indicating normal sinus rhythm, no ischemia, normal axis Chest X-Ray : Additional Comments EXAM: DI CHEST,SINGLE VIEW Indication: CP Technique: Single frontal view of the chest was obtained Comparison: DI CHEST,SINGLE VIEW on DOS: 11/29/24, XR CHEST 1 VIEW AP OR PA on DOS: 11/28/24, DI CHEST,SINGLE VIEW on DOS: 11/25/24, DI CHEST,SINGLE VIEW on DOS: 11/23/24, DI CHEST,SINGLE VIEW on DOS: 11/21/24 FINDINGS: Lines and Tubes: None Lungs: Small bilateral pleural effusions. Multifocal consolidative opacities No pneumothorax. Cardiomediastinal contours: Cardiomegaly Bones: No acute osseous abnormality. IMPRESSION: Small bilateral pleural effusions. Multifocal consolidative opacities. : Impression PROCEDURE: CT CTA CHEST CT ABD PELVIS 12/10/2024 01:53 PM INDICATION: abdominal distension, SEVERE SOB COMPARISON: CT scan 11/25/2024, 23 TECHNIQUE: Coverage: Thorax, abdomen and pelvis IV contrast: Administered Phases: Arterial Multiplanar 3-D Maximum Intensity Projection images (MIP) reconstructions were created by the technologist in the coronal and sagittal planes as part of the CT angiography protocol. Adverse events: None Medication laboratory values were reviewed to verify the patient meets criteria for contrast administration. All CT scans at this medical facility are performed using dose modulation techniques as appropriate to a performed exam including the following: Automated exposure control was utilized; adjustment of the MA and/or KV according to patient size; and use of iterative reconstruction technique. Radiation dose: CTDIvol 31, 26 mGy, DLP 2880.6 mGy*cm. FINDINGS: Thyroid gland is unremarkable. Median sternotomy wires and mediastinal vascular clips are seen. The heart is moderately enlarged. Coronary artery calcification/stenting. Aorta is normal in caliber with no evidence of dissection. Scattered calcified plaques of the aorta noted. Pulmonary artery is patent with no emboli identified in the 1st, 2nd and 3rd order branches. Moderate-sized right and small left pleural effusions. Moderate bilateral multifocal pulmonary opacities. No pneumothorax. The abdominal aorta is normal in caliber with scattered calcified plaques noted. Atherosclerotic calcification of the iliac proximal common femoral arteries noted. Moderate stenosis of the bilateral internal iliac arteries noted. Mild stenosis of the bilateral external iliac arteries. The celiac trunk is patent. Diffuse atherosclerotic calcification of the splenic artery with [id number] stenosis noted. Mild atherosclerotic calcification of the superior mesenteric artery. Atherosclerotic calcification of the bilateral renal arteries with high-grade stenosis of the origin of the left renal artery mild stenosis of the right renal artery. Moderate atherosclerotic calcification of the inferior mesenteric artery with high-grade stenosis noted. Moderate ascites in the abdomen. There is mild irregularity of the liver contour that may reflect underlying cirrhosis. No discrete hepatic mass. No intrahepatic or extrahepatic ductal dilatation. Cholelithiasis noted without significant gallbladder wall thickening. The spleen is unremarkable. A 5 cm heterogeneous mass, predominantly solid small areas of fatty, vascular and calcified continence noted most likely a myelolipoma. Moderately atrophic bilateral kidneys several small hypodense lesions probably cysts, incompletely evaluated. No evidence of small-bowel obstruction. No significant colonic diverticular disease. Mild fecal retention in the rectum. No bowel wall edema. The appendix is normal. Exaggerated thoracic kyphosis due to [place] Moderate anterior compression deformities of several lower thoracic vertebrae with up to 50% loss of height anteriorly without retropulsion. Multilevel degenerative disc disease of the thoracolumbar spine noted. Irregularity of the endplates at L2-L3 could be Degenerative in nature or sequela of prior infection. Ongoing infection is unlikely. Old nonunited few posterior bilateral rib fractures noted. Prostate is moderately enlarged and heterogeneous. Diffuse bladder wall thickening likely due to chronic outlet obstruction. IMPRESSION: 1. No evidence of acute pulmonary emboli. 2. No aortic aneurysm or dissection. 3. Diffuse atherosclerotic disease with High-grade stenosis of the proximal left renal artery and inferior mesenteric artery. 4. Moderate-sized right pleural effusion. Small left pleural effusion. Complete consolidation of the right lower lobe likely compressive atelectasis and extensive bilateral multifocal pulmonary opacities most likely pneumonia with differential diagnosis of edema. Recommend clinical and biochemical correlation. 5. Moderate intra-abdominal ascites. 6. No evidence of bowel obstruction. 7. Large, 5 cm able left adrenal heterogeneous solid mass most likely a benign myelolipoma. This has been stable since 2022. 8. Moderate prostatic hyperplasia with evidence of bladder outlet obstruction. Medical Decision Making Additional Infomation 64-year-old male presenting with acute respiratory failure secondary to significant pulmonary edema and possible pneumonia. Patient has end-stage renal disease and is on hemodialysis and is the need of urgent dialysis. Lab workup does indicate a slight white count of 12.6. He is also anemic likely from chronic disease with a low hemoglobin of 8.3. Patient was also hyperkalemic with a potassium of 6.2. Chest x-ray showed cardiomegaly and significant pulmonary edema and infiltrates. We did also do a CT angiogram of the chest to rule out any potential pulmonary embolism and this was negative however did indicate a significant right-sided pleural effusion as well as pulmonary edema and infiltrates due to possible superimposed pneumonia. Patient was given an albuterol breathing treatment as well as 125 mg of IV Solu-Medrol. As he was very uncomfortable on oxygen by facemask he was placed on BiPAP. He was also given 1 g of IV ceftriaxone for treatment of potential pneumonia. For his hype rkalemia he was treated with 1 g of calcium gluconate as well as 8 units of IV insulin and given 50 mg dextrose to prevent hypoglycemia. This patient is critically ill and requires admission. I did discuss the case with his public transit bus driver Dr. Johsnon who will coordinate the dialysis. Patient will need admission to the hospitalist service for further treatment and care. Departure Disposition: ADMITTED INPATIENT Admitted to Inpatient Unit: to hospitalist Admission Level of Care: PCU with Tele Impression: Primary Impression: End-stage renal disease needing dialysis Additional Impressions: Respiratory failure Pleural effusion Pneumonia Hyperkalemia Condition: Guarded Referrals: NO PRIMARY CARE PROVIDER (PCP) Critical Care Note Total Time (mins): 109 Critical Care Note The very real possibility of a deterioration of this patient's condition required the highest level of my preparedness for sudden, emergent intervention. I provided critical care services, which included medication orders, frequent reevaluations of the patient's condition and response to treatment, ordering and reviewing test results, and discussing the case with various consultants. Excludes time spent performing separately billable procedures. The critical care time associated with the care of the patient was. Signature Scribe Signature: 1 Attestation: 1 CHELSY ORDAZ MD December 10, 2024 13:30
[2024-12-10 13:43] LABS: ALANINE AMINOTRANSFERASE 40 U/L (12-78); ALBUMIN 3.6 G/DL (3.4-5.0); ALBUMIN/GLOBULIN RATIO 1.2 (1.1-1.5); ALKALINE PHOSPHATASE 55 IU/L (46-116); ANION GAP 11 (8-16); ASPARTATE AMINO TRANSFERASE 10 U/L (10-37); BILIRUBIN,TOTAL 0.5 MG/DL (0.1-1.0); BLOOD UREA NITROGEN 99 MG/DL (7-18); BUN/CREATININE RATIO 14.3 (10.0-20.0); CALCIUM 8.8 MG/DL (8.5-10.1); CHLORIDE 101 MMOL/L (99-107); CREATININE 6.92 MG/DL (0.60-1.10); GLUCOSE 154 MG/DL (70-104); SODIUM 138 MMOL/L (135-145); TOTAL CARBON DIOXIDE 25.9 MMOL/L (24-32); TOTAL PROTEIN 6.6 G/DL (6.4-8.2); eCRCL 11 ML/MIN; eGFR 8 ML/MIN
[2024-12-10 13:47] LABS: POTASSIUM 6.2 MMOL/L (3.5-5.1)
[2024-12-10 13:51] LABS: PRO BRAIN NATRIURETIC PEPTIDE > 30000 PG/ML (0-125)
[2024-12-10 14:12] LABS: D-DIMER 1.91 MG/L FEU (0-0.50)
[2024-12-10 14:28] LABS: ANISOCYTOSIS 2+; PLATELET ESTIMATE DECREASED; TOTAL CELLS COUNTED 100
[2024-12-10] MEDS: CefTRIAXone/D5W-Rocephin 1gm 50 ML IV ONE (14:43)
[2024-12-10] MEDS: methylPREDNISolone sod succ 125mg/2ml vial IV ONE (14:43)
--- NOTE | 2024-12-10 14:44 | RADIOLOGY REPORT ---
PROCEDURE: CT CTA CHEST CT ABD PELVIS 12/10/2024 01:53 PM INDICATION: abdominal distension, SEVERE SOB COMPARISON: CT scan 11/25/2024, 23 TECHNIQUE: Coverage: Thorax, abdomen and pelvis IV contrast: Administered Phases: Arterial Multiplanar 3-D Maximum Intensity Projection images (MIP) reconstructions were created by the techntanvir villegas in the coronal and sagittal planes as part of the CT angiography protocol. Adverse events: None Medication laboratory values were reviewed to verify the patient meets criteria for contrast administ ration. All CT scans at this medical facility are performed using dose modulation techniques as appropriate t o a performed exam including the following: Automated exposure control was utilized; adjustment of th e MA and/or KV according to patient size; and use of iterative reconstruction technique. Radiation dose: CTDIvol 31, 26 mGy, DLP 2880.6 mGy*cm. FINDINGS: Thyroid gland is unremarkable. Median sternotomy wires and mediastinal vascular clips are seen. The heart is moderately enlarged. Coronary artery calcification/stenting. Aorta is normal in caliber wit h no evidence of dissection. Scattered calcified plaques of the aorta noted. Pulmonary artery is pat ent with no emboli identified in the 1st, 2nd and 3rd order branches. Moderate-sized right and small left pleural effusions. Moderate bilateral multifocal pulmonary opacities. No pneumothorax. The abdominal aorta is normal in caliber with scattered calcified plaques noted. Atherosclerotic asia cification of the iliac proximal common femoral arteries noted. Moderate stenosis of the bilateral in ternal iliac arteries noted. Mild stenosis of the bilateral external iliac arteries. The celiac trun k is patent. Diffuse atherosclerotic calcification of the splenic artery with ufhl-ok-xcxtrcxf steno sis noted. Mild atherosclerotic calcification of the superior mesenteric artery. Atherosclerotic asia cification of the bilateral renal arteries with high-grade stenosis of the origin of the left renal a rtery mild stenosis of the right renal artery. Moderate atherosclerotic calcification of the inferior mesenteric artery with high-grade stenosis noted. Moderate ascites in the abdomen. There is mild irregularity of the liver contour that may reflect und erlying cirrhosis. No discrete hepatic mass. No intrahepatic or extrahepatic ductal dilatation. Yoli lithiasis noted without significant gallbladder wall thickening. The spleen is unremarkable. A 5 cm heterogeneous mass, predominantly solid small areas of fatty, vascular and calcified continence noted most likely a myelolipoma. Moderately atrophic bilateral kidneys several small hypodense lesions pro bably cysts, incompletely evaluated. No evidence of small-bowel obstruction. No significant colonic d iverticular disease. Mild fecal retention in the rectum. No bowel wall edema. The appendix is tri l. Exaggerated thoracic kyphosis due to Colonic Moderate anterior compression deformities of several low er thoracic vertebrae with up to 50% loss of height anteriorly without retropulsion. Multilevel degen erative disc disease of the thoracolumbar spine noted. Irregularity of the endplates at L2-L3 could be Degenerative in nature or sequela of prior infection. Ongoing infection is unlikely. Old nonunited few posterior bilateral rib fractures noted. Prostate is moderately enlarged and heterogeneous. Diff use bladder wall thickening likely due to chronic outlet obstruction. IMPRESSION: 1. No evidence of acute pulmonary emboli. 2. No aortic aneurysm or dissection. 3. Diffuse atherosclerotic disease with High-grade stenosis of the proximal left renal artery and inf erior mesenteric artery. 4. Moderate-sized right pleural effusion. Small left pleural effusion. Complete consolidation of the right lower lobe likely compressive atelectasis and extensive bilateral multifocal pulmonary opaciti es most likely pneumonia with differential diagnosis of edema. Recommend clinical and biochemical cor relation. 5. Moderate intra-abdominal ascites. 6. No evidence of bowel obstruction. 7. Large, 5 cm able left adrenal heterogeneous solid mass most likely a benign myelolipoma. This has been stable since 2022. 8. Moderate prostatic hyperplasia with evidence of bladder outlet obstruction.
[2024-12-10] MEDS: albuterol 2.5 MG/3 ML nebule NEB ONE (15:01)
[2024-12-10] MEDS: dextrose 50%-water 50ml dispensing syringe IV ONE (15:45)
[2024-12-10] MEDS: CALCIUM GLUC 1gm/50ml NACL,iso 50 ML IV ONE (15:45)
[2024-12-10] MEDS: insulin regular, human 10 units/0.1 ml syringe IV ONE (15:46)
[2024-12-10] MEDS ORDERED: MIDO5TAB4 PO (16:03)
[2024-12-10] MEDS ORDERED: potassium Cl 20 mEq SR tablet PO PRN ×2 (16:15)
[2024-12-10] MEDS ORDERED: magnesium sulf-water 4G/100mL 100 ML IV PRN (16:15)
[2024-12-10] MEDS ORDERED: potassium Cl 40MEQ/1/2NS 520ml 520 ML IV PRN (16:15)
[2024-12-10] MEDS ORDERED: DEXTROSE 15 GM of carb/4 tabs (each vial/BOTTLE has 4 tablets) PO PRN ×2 (16:15)
[2024-12-10] MEDS ORDERED: acetaminophen 325mg tablet PO PRN (16:15)
[2024-12-10] MEDS ORDERED: ondansetron/PF 4mg/2ml inj IV PRN (16:15)
[2024-12-10] MEDS ORDERED: mag hydrox/Alum hydrox/simeth 30ml oral suspension PO PRN (16:15)
[2024-12-10] MEDS ORDERED: magnesium sulf-water 2g/50mL 50 ML IV PRN (16:15)
[2024-12-10] MEDS ORDERED: glucagon, human recombinant 1mg kit SUBCUT PRN (16:15)
[2024-12-10] MEDS ORDERED: dextrose 50%-water 50ml dispensing syringe IV PRN ×2 (16:15)
--- NOTE | 2024-12-10 17:14 | CONSULTATION REPORT ---
Consult Providers to CC ~ History of Present Illness Primary Medical Doctor: [facility] ER Reason for Admit\Complaint: Frequent flier with similar medical presentation for 4th or 5th time History of Present Illness 64/M comes as a transfer in from [facility] in resp distress repeatedly with the same modus operandi. non compliance to fluids, found in pullmonary edema with multiple consolidations in [place] CXR and CTA - contrast exposure yet again in ER. on Bipap. limited history. arranged for urgent HD for him but he needs to be transferred to a safe room to start HD. He stands a risk of getting intubated. He is critically ill until he gets his fluids taken care of. Its extremely difficult to make this patient understands how he is putting himself in such a vulnerable position aa he is probably coming back 4th or 5th time in the span of a month for similar complaints. He risks hospital acquired infections as well, and a sudden from fluid overload + his COPD already coexisting. He is also hyperkalemic today at 6.2 Allergies: Coded Allergies: No Known Allergies (Unverified , 12/10/24) Home Medications Home Medications Active Culturelle (Lactobacillus Rhamnosus) 10 Billion Cell Capsule 1 Cap PO DAILY 30 Days Cordarone (Amiodarone HCl) 200 Mg Tablet 200 Mg PO BID 30 Days Prednisone 10 Mg Tablet 0 PO DAILY Take 4 tabs daily x4 days, then 3 daily x4 days 2 daily x4 days 1 daily x4 days 1/2 daily x4 days then STOP Reported Midodrine HCl 5 Mg Tablet 1 Tab PO Q12H 30 Days Cardizem LA (Diltiazem HCl) 120 Mg Tab.er.24h 120 Mg PO DAILY Xphozah (Tenapanor HCl) 30 Mg Tablet 1 Tab PO BID Eliquis (Apixaban) 5 Mg Tablet 1 Tab PO Q12H 30 Days Lasix* (Furosemide) 20 Mg Tablet 2 Tab PO BID 30 Days Vitamin D2 (Ergocalciferol (Vitamin D2)) 1,250 Mcg Capsule 1 Cap PO Q7D PT TAKES ON MONDAYS Atorvastatin Calcium 40 Mg Tablet 1 Tab PO DAILY Isordil* (Isosorbide Dinitrate) 30 Mg Tablet 1 Tab PO DAILY Febuxostat 40 Mg Tablet 1 Tab PO DAILY Ezetimibe 10 Mg Tablet 1 Tab PO DAILY Amlodipine Besylate 2.5 Mg Tablet 1 Tab PO DAILY Irbesartan 150 Mg Tablet 1 Tab PO DAILY Dulera 200 Mcg/5 Mcg Inhaler (Mometasone/Formoterol) 13 Gm Hfa.aer.ad 2 Puffs IH BID Hydralazine HCl 50 Mg Tablet 1 Tab PO BID Humalog (Insulin Lispro) 100 Unit/1 Ml Insuln.pen 1 Unit SQ SLIDING SCALE Albuterol 17 Gm Aerosol 1-2 Puffs PO Q4H PRN Aspirin EC (Aspirin) 81 Mg Tablet.dr 1 Tablet PO DAILY Basaglar Kwikpen U-100 (Insulin Glargine,Hum.rec.anlog) 100 Unit/1 Ml Insuln.pen 20 Units SQ HS Past Medical History Past Medical History CHF, COPD, non compliance to fluid restriction Family History Family History: Patient reports no known family medical history. ROS ROS shortness of breath, orthopnea, on bipap Exam Vitals: Vital Signs Date Time Temp Pulse Resp B/P (MAP) Pulse Ox O2 Delivery O2 Flow Rate FiO2 12/10/24 16:23 85 16 123/67 (85) 100 12/10/24 15:12 Bi-pap 35 12/10/24 12:35 97.6 General: short of breath on bipap cvs; S1S2+ S3+ RS: bilateral crackles Abd; B S+ Ext: edema + Diagnostic Data Last Recorded Lab Results: 12/10/24 1249 12/10/24 1249 Diagnostic Data: Laboratory Tests Test 12/10/24 12:49 D-Dimer 1.91 MG/L FEU (0-0.50) H D-Dimer Comment Problems: (1) Acute respiratory failure Assessment & Plan: would benefit with icu at least until HD is done and fluid is removed. If it would expedite the admission process, kindly consider moving him EDVIN to icu. orders for emergent dialysis has been placed. (2) ESRD (end stage renal disease) Assessment & Plan: HD tonight and use 2K bath, use Elisio dialyzer, with heparin, and aim for 4-5 liters off as tolerated. Strict fluid restriction to 1.2 liters per day. (3) Anemia Assessment & Plan: epogen with dialysis CRYSTAL DE LA FUENTE MD December 10, 2024 17:14
[2024-12-10] MEDS: heparin 1,000 units/ml 10ml inj IV ONE (18:36)
[2024-12-10] MEDS: heparin 1,000unit/ml 10ml vial 10 ML IV ONE (18:36)
[2024-12-10] MEDS: EPOETIN ALFA-EPBX 20,000 UNIT/ML 1 ML MDV IV ONE (18:36)
[2024-12-10] MEDS: heparin 1,000 units/ml 10ml inj HE ONE ×2 (18:37)
[2024-12-10] MEDS: INSULIN LISPRO 100 UNIT/ML INSULN.PEN MULTI-DOSE SQ SCH (19:14)
[2024-12-10 19:51] LABS: BASOPHILS # (AUTO) 0.1 X10'3 (0-0.2); BASOPHILS % (AUTO) 0.5 % (0-1); EOSINOPHILS % (AUTO) 0.1 % (0-6); HEMATOCRIT 25.7 % (42.0-52.0); HEMOGLOBIN 8.3 g/dl (14.0-17.9); LYMPHOCYTES # (AUTO) 0.2 X10'3 (1.1-4.8); LYMPHOCYTES % (AUTO) 1.3 % (21-51); MEAN CORPUSCULAR HEMOGLOBIN 31.7 PG (27.0-31.0); MEAN CORPUSCULAR HGB CONC 32.1 g/dL (33.0-36.5); MEAN CORPUSCULAR VOLUME 98.7 FL (78-98); MEAN PLATELET VOLUME 8.6 FL (7.4-10.4); MONOCYTES # (AUTO) 0.2 X10'3 (0-0.9); MONOCYTES % (AUTO) 1.6 % (2-12); NEUTROPHILS # (AUTO) 11.5 X10'3 (1.8-7.7); NEUTROPHILS % (AUTO) 96.5 % (42-75); PLATELET COUNT 101 X10'3 (140-440); RED BLOOD COUNT 2.61 X10'6 (4.70-6.10); RED CELL DISTRIBUTION WIDTH 18.7 % (11.5-14.5); WHITE BLOOD COUNT 11.9 X10'3 (4.5-11.0)
[2024-12-10] MEDS: K and/or MAG REPLACEMENT MC SCH (20:00)
[2024-12-10] MEDS: TENAPANOR 30 MG PO SCH (20:00)
--- NOTE | 2024-12-10 20:27 | HISTORY AND PHYSICAL ---
History & Physical Providers to CC ~ History of Present Illness Reason for Admit\Complaint: Acute worsening of chronic respiratory failure History of Present Illness This is a 64-year-old male who presented to [facility] ED with worsening shortness of breath as well as fatigue he does complain of cough with dark sputum production denies any fever or chills is on 3 L oxygen at home patient was transferred to [facility] since he has a end-stage renal patient on dialysis the patient does have hyperkalemia however serum potassium is lower than prior presentations ED at 6.2 the patient is minimally elevated high sensitivity troponins at 1:58 a.m. and 145 both of which are nondiagnostic due to the patient's end-stage renal disease with a creatinine on presentation of 6.92. The patient does have small bilateral pleural effusions on chest x-ray of the as well as multifocal consolidative opacities with a white blood cell count 03085 and a left shift% neutrophil count of 90.4%. The patient also has a CTA which was negative for PE- I Started the patient on IV Zosyn the patient was evaluated by swimming professor Dr. Almaguer who assessed that the patient and is wanting to do dialysis this evening. The patient also states that he is constipated in his not have at a bowel movement two days the patient has a bowel movement daily at his baseline. Allergies: Coded Allergies: No Known Allergies (Unverified , 12/10/24) Home Medications Home Medications Active Culturelle (Lactobacillus Rhamnosus) 10 Billion Cell Capsule 1 Cap PO DAILY 30 Days Cordarone (Amiodarone HCl) 200 Mg Tablet 200 Mg PO BID 30 Days Prednisone 10 Mg Tablet 0 PO DAILY Take 4 tabs daily x4 days, then 3 daily x4 days 2 daily x4 days 1 daily x4 days 1/2 daily x4 days then STOP Reported Midodrine HCl 5 Mg Tablet 1 Tab PO Q12H 30 Days Cardizem LA (Diltiazem HCl) 120 Mg Tab.er.24h 120 Mg PO DAILY Xphozah (Tenapanor HCl) 30 Mg Tablet 1 Tab PO BID Eliquis (Apixaban) 5 Mg Tablet 1 Tab PO Q12H 30 Days Lasix* (Furosemide) 20 Mg Tablet 2 Tab PO BID 30 Days Vitamin D2 (Ergocalciferol (Vitamin D2)) 1,250 Mcg Capsule 1 Cap PO Q7D PT TAKES ON MONDAYS Atorvastatin Calcium 40 Mg Tablet 1 Tab PO DAILY Isordil* (Isosorbide Dinitrate) 30 Mg Tablet 1 Tab PO DAILY Febuxostat 40 Mg Tablet 1 Tab PO DAILY Ezetimibe 10 Mg Tablet 1 Tab PO DAILY Amlodipine Besylate 2.5 Mg Tablet 1 Tab PO DAILY Irbesartan 150 Mg Tablet 1 Tab PO DAILY Dulera 200 Mcg/5 Mcg Inhaler (Mometasone/Formoterol) 13 Gm Hfa.aer.ad 2 Puffs IH BID Hydralazine HCl 50 Mg Tablet 1 Tab PO BID Humalog (Insulin Lispro) 100 Unit/1 Ml Insuln.pen 1 Unit SQ SLIDING SCALE Albuterol 17 Gm Aerosol 1-2 Puffs PO Q4H PRN Aspirin EC (Aspirin) 81 Mg Tablet.dr 1 Tablet PO DAILY Basaglar Kwikpen U-100 (Insulin Glargine,Hum.rec.anlog) 100 Unit/1 Ml Insuln.pen 20 Units SQ HS Past Medical History Past Medical History End-stage renal disease on dialysis Coronary artery disease COPD Diabetes mellitus Atrial fibrillation Past Surgical History Surgical History Comment Four vessel CABG in 2006 Family History Family History: Patient reports no known family medical history. Past Social History Social History Comment Does not smoke cigarettes, drink alcohol, or use illicit drugs. The patient has a history of heavy cannabis use however stopped smoking cannabis four years ago. Full code status ROS ROS Except for positives in the HPI the rest of the 14 point review systems is negative Exam Vitals: Vital Signs Date Time Temp Pulse Resp B/P (MAP) Pulse Ox O2 Delivery O2 Flow Rate FiO2 12/10/24 20:15 80 14 119/66 (83) 97 12/10/24 19:30 30 12/10/24 15:12 Bi-pap 12/10/24 12:35 97.6 General: Gen. No acute distress alert and oriented 4 Lungs clear to ascultation bilaterally, no wheezes rales or rhonchi appreciated Heart irregular rhythm no murmurs rubs or clicks noted Abdomen soft nontender bowel sounds are normoactive Lower extremities no clubbing cyanosis, 2+ pitting edema appreciated bilaterally Skin excoriations in regions of erythema with superficial ulcerations appreciated bilaterally Diagnostic Data Last Recorded Lab Results: 12/10/24 1939 12/10/24 1249 Diagnostic Data: Laboratory Tests Test 12/10/24 12:49 D-Dimer 1.91 MG/L FEU (0-0.50) H D-Dimer Comment Problems: (1) Respiratory failure Additional Plan # acute worsening of chronic respiratory failure on 3 L oxygen at baseline- likely multifactorial including fluid overload due to non compliance with fluid restriction and bilateral bacterial pneumonia NOS- Respiratory therapies ordered as well as DuoNeb and albuterol nebs # atrial fibrillation persistent Continue diltiazem Continue apixaban for DVT and stroke prophylaxis # multifocal bacterial pneumonia NOS- IV Zosyn # end-stage renal disease on dialysis- Evaluated by swimming professor Dr. Almaguer whom is arranging for dialysis this evening # hyperkalemia mild- Anticipate correction with dialysis The patient received temporary hyperkalemic treatment measures a [facility] # kxg-lhirlnk-nmqaxjphs diabetes mellitus and a hyper and hypoglycemic protocol # macrocytic anemia- Monitor daily CBC Received Epogen I spent a total of 17 minutes on reviewing various resuscitative measures/ ACP with the patient at the time of admission. The patient has decided on full code status Date of Service: December 10, 2024 Billing Provider: DAYDAY ACOSTA DO Common Visit Codes: [id number] INP/OBS CARE (HIGH) Secondary Visit Codes: [id number] CARE PLAN 30 MINUTES Problem Qualifiers (1) Respiratory failure: Chronicity: acute on chronic Respiratory failure complication: hypoxia Q ualified Codes: J96.21 - Acute and chronic respiratory failure with hypoxia DAYDAY ACOSTA DO December 10, 2024 20:27
[2024-12-10] MEDS: piperacillin/tazo 3.375gm/50ml 50 ML IV SCH (20:40)
[2024-12-10] MEDS: docusate sod 100mg capsule PO SCH (20:40)
[2024-12-10] MEDS: apixaban 5mg tablet PO SCH (20:41)
[2024-12-10 21:45] LABS: ALBUMIN 3.1 G/DL (3.4-5.0); ANION GAP 11 (8-16); BLOOD UREA NITROGEN 99 MG/DL (7-18); BUN/CREATININE RATIO 13.3 (10.0-20.0); CALCIUM 8.3 MG/DL (8.5-10.1); CHLORIDE 100 MMOL/L (99-107); CREATININE 7.42 MG/DL (0.60-1.10); GLUCOSE 223 MG/DL (70-104); SODIUM 135 MMOL/L (135-145); TOTAL CARBON DIOXIDE 24.1 MMOL/L (24-32); eCRCL 10 ML/MIN; eGFR 7 ML/MIN
[2024-12-10] MEDS: albumin (human) 25% 100ml IV 100 ML IV PRN (22:58)
[2024-12-11] VITALS (25 sets, daily range): BP systolic 77–105; BP diastolic 43–62; PULSE 91–112; RESP 16–30; TEMP 96.7–98.1; O2SAT 93–100
[2024-12-11 07:08] LABS: BASOPHILS % (AUTO) 0 % (0-1); EOSINOPHILS % (AUTO) 0 % (0-6); HEMATOCRIT 23.1 % (42.0-52.0); HEMOGLOBIN 7.7 g/dl (14.0-17.9); LYMPHOCYTES # (AUTO) 0.1 X10'3 (1.1-4.8); LYMPHOCYTES % (AUTO) 1.2 % (21-51); MEAN CORPUSCULAR HEMOGLOBIN 32.5 PG (27.0-31.0); MEAN CORPUSCULAR HGB CONC 33.2 g/dL (33.0-36.5); MEAN CORPUSCULAR VOLUME 97.8 FL (78-98); MEAN PLATELET VOLUME 8.2 FL (7.4-10.4); MONOCYTES # (AUTO) 0.4 X10'3 (0-0.9); MONOCYTES % (AUTO) 4.1 % (2-12); NEUTROPHILS % (AUTO) 94.7 % (42-75); PLATELET COUNT 80 X10'3 (140-440); RED BLOOD COUNT 2.37 X10'6 (4.70-6.10); RED CELL DISTRIBUTION WIDTH 17.7 % (11.5-14.5); WHITE BLOOD COUNT 9.5 X10'3 (4.5-11.0)
[2024-12-11 07:19] LABS: ALANINE AMINOTRANSFERASE 34 U/L (12-78); ALBUMIN 3.5 G/DL (3.4-5.0); ALBUMIN/GLOBULIN RATIO 1.3 (1.1-1.5); ALKALINE PHOSPHATASE 52 IU/L (46-116); ANION GAP 9 (8-16); ASPARTATE AMINO TRANSFERASE 11 U/L (10-37); BILIRUBIN,TOTAL 0.5 MG/DL (0.1-1.0); BLOOD UREA NITROGEN 57 MG/DL (7-18); BUN/CREATININE RATIO 12.2 (10.0-20.0); CALCIUM 8.4 MG/DL (8.5-10.1); CHLORIDE 103 MMOL/L (99-107); CREATININE 4.67 MG/DL (0.60-1.10); GLUCOSE 169 MG/DL (70-104); POTASSIUM 5.3 MMOL/L (3.5-5.1); SODIUM 140 MMOL/L (135-145); TOTAL CARBON DIOXIDE 27.8 MMOL/L (24-32); TOTAL PROTEIN 6.2 G/DL (6.4-8.2); eCRCL 16 ML/MIN; eGFR 13 ML/MIN
[2024-12-11] MEDS: ipratropium/albuterol 3ml nebule NEB PRN (07:31)
[2024-12-11] MEDS: diltiazem CD 120mg capsule (once-daily) PO SCH (08:00)
[2024-12-11] MEDS ORDERED: febuxostat 40mg tablet PO SCH (08:00)
--- NOTE | 2024-12-11 08:46 | RADIOLOGY REPORT ---
EXAM: DI CHEST,SINGLE VIEW Indication: fluid overload. follow up Technique: Single frontal view of the chest was obtained Comparison: DI CHEST,SINGLE VIEW on DOS: 12/10/24, DI CHEST,SINGLE VIEW on DOS: 11/29/24, XR CHEST 1 EW AP OR PA on DOS: 11/28/24, DI CHEST,SINGLE VIEW on DOS: 11/25/24, DI CHEST,SINGLE VIEW on DOS: FINDINGS: Lines and Tubes: None Lungs: Multifocal consolidative opacities. Pleura: Small bilateral pleural effusions. No pneumothorax. Cardiomediastinal contours: Cardiomegaly. Bones: No acute osseous abnormality. IMPRESSION: No significant change compared to prior exam.
[2024-12-11] MEDS: heparin 1,000 units/ml 10ml inj HE ONE ×2 (10:19→10:20)
[2024-12-11] MEDS: LIDOcaine 1% (10mg/ml) 2ml vial SQ ONE (10:49)
[2024-12-11 11:07] LABS: ABG BASE EXCESS -6.5 mmol/L (-2.0-3.0); ABG HCO3 22.3 mmol/L (21.0-28.0); ABG OXYGEN SATURATION 56.7 % (94.0-98.0); ABG PCO2 (T) 63.1 mmHg (35.0-48.0); ABG PH (T) 7.162 (7.350-7.450); ABG PO2 (T) 33.5 mmHg (83.0-108.0); ALLEN'S TEST POSITIVE; FCOHb 0.9 % (0.5-1.5); FHHb 42.8 % (0.0-5.0); FMetHb 0.3 % (0.0-1.5); PATIENT TEMPERATURE 36.2; TOTAL HEMOGLOBIN 8.6 G/dl (13.5-17.5)
[2024-12-11] MEDS: EPOETIN ALFA-EPBX 20,000 UNIT/ML 1 ML MDV IV ONE (11:13)
[2024-12-11] MEDS: heparin 1,000 units/ml 10ml inj IV ONE (11:30)
[2024-12-11] MEDS: heparin 1,000unit/ml 10ml vial 10 ML IV ONE (11:31)
[2024-12-11] MEDS: albumin (human) 25% 100ml IV 100 ML IV PRN (12:12)
[2024-12-11] MEDS ORDERED: DILT120T (18:16)
[2024-12-11] MEDS ORDERED: IPRA3AMP31 NEB (18:16)
[2024-12-11] MEDS ORDERED: DOCU-391 PO (18:16)
[2024-12-11] MEDS: diltiazem CD 120mg capsule (once-daily) PO ONE (21:48)
--- NOTE | 2024-12-11 22:19 | PROGRESS NOTE ---
Daily Progress Note Providers to CC ~ Antibiotic Timeout Antibiotic Ordered?: Yes Subjective The patient received an additional dialysis treatment today- I have evaluated the patient while he was on dialysis any the patient felt significantly improved from that of presentation to the ED Objective Vital Signs Date Time Temp Pulse Resp B/P (MAP) Pulse Ox O2 Delivery O2 Flow Rate FiO2 12/11/24 21:49 101 22 Bi-pap 0.0 30 12/11/24 21:42 98 12/11/24 15:00 97.1 90/58 (69) Result Diagram: 12/11/24 0619 12/11/24 06 Gen. No acute distress alert and oriented 4 Lungs clear to ascultation bilaterally, no wheezes rales or rhonchi appreciated Heart irregular rhythm no murmurs rubs or clicks noted Abdomen soft nontender bowel sounds are normoactive Lower extremities no clubbing cyanosis, 2+ pitting edema appreciated bilaterally Skin excoriations in regions of erythema with superficial ulcerations appreciated bilaterally Coagulation Studies Laboratory Tests Test 12/10/24 12:49 D-Dimer 1.91 MG/L FEU (0-0.50) H D-Dimer Comment Problem\Assessment\Plan Problems/Diagnosis: (1) Respiratory failure # acute worsening of chronic respiratory failure on 3 L oxygen at baseline- likely multifactorial including fluid overload due to non compliance with fluid restriction and bilateral bacterial pneumonia NOS- Respiratory therapies ordered as well as DuoNeb and albuterol nebs # atrial fibrillation persistent Continue diltiazem Continue apixaban for DVT and stroke prophylaxis # multifocal bacterial pneumonia NOS- IV Zosyn # end-stage renal disease on dialysis- Evaluated by wood milling machine operator Dr. Almaguer whom is arranging for dialysis this evening 12/11 received a 2nd dialysis treatment today # hyperkalemia mild- Significantly improved with dialysis serum potassium was 5.3 this morning The patient received temporary hyperkalemic treatment measures a [facility] # tdw-vwljuyf-gtumuaxdf diabetes mellitus and a hyper and hypoglycemic protocol # macrocytic anemia- Monitor daily CBC Received Epogen 12/11 hemoglobin slowly downtrending continue monitor daily CBC and transfuse if hemoglobin is below seven Sepsis Screening Skin Color: Normal Date of Service: December 11, 2024 Billing Provider: DAYDAY ACOSTA DO Common Visit Codes: [id number] INP/OBS CARE(HIGH) Problem Qualifiers (1) Respiratory failure: Qualified Codes: J96.21 - Acute and chronic respiratory failure with hypoxia DAYDAY ACOSTA DO December 11, 2024 22:19
[2024-12-12] VITALS (19 sets, daily range): BP systolic 78–94; BP diastolic 48–63; PULSE 64–99; RESP 17–27; TEMP 96–97.5; O2SAT 93–98
[2024-12-12] MEDS: HYDROmorphone inj. 0.5 MG/0.5 ML DISP.SYRIN IV PRN (01:32)
[2024-12-12 07:43] LABS: HBSAG SCREEN Negative (Negative)
--- NOTE | 2024-12-12 07:59 | PROGRESS NOTE ---
Progress Note Dictate Providers to CC ~ Central Line/PICC still needed: Yes Central Line/PICC Necessity: Req HD/Plasmapheresis [place] Indications Met/Not Met: F/C Indications Not Met Antibiotic Ordered?: N/A Subjective Subjective post dated for the rounds on 12/11/24 HD again arranged for 12/11/24 for his fluid overload. follow u p CXR Objective Vitals Vital Signs Date Time Temp Pulse Resp B/P (MAP) Pulse Ox O2 Delivery O2 Flow Rate FiO2 12/12/24 07:33 93 26 Nasal Cannula 3.0 12/12/24 07:30 98 30 12/12/24 06:00 97.5 94/63 (73) Lab Results: 12/11/24 0619 12/11/24 0619 Objective lungs bilateral crackles needing O2 CVS: RRRAbd: bS+ Ext: edema + Coagulation Studies Laboratory Tests Test 12/10/24 12:49 D-Dimer 1.91 MG/L FEU (0-0.50) H D-Dimer Comment Advance Care Planning Advanced Care plannin - 30 Minutes Problem\Assessment\Plan Problems/Diagnosis: (1) Acute respiratory failure Assessment & Plan: would benefit with icu at least until HD is done and fluid is removed. one more time today. (2) ESRD (end stage renal disease) Assessment & Plan: HD again today with 3-4 liters off as otlerated. (3) Anemia Assessment & Plan: epogen with dialysis Sepsis Screening Skin Color: Normal CRYSTAL DE LA FUENTE MD December 12, 2024 07:59
[2024-12-12 08:16] LABS: BASOPHILS % (AUTO) 0.1 % (0-1); HEMOGLOBIN 7.4 g/dl (14.0-17.9); LYMPHOCYTES # (AUTO) 0.7 X10'3 (1.1-4.8); MONOCYTES # (AUTO) 0.8 X10'3 (0-0.9)
[2024-12-12 08:19] LABS: EOSINOPHILS # (AUTO) 0.1 X10'3 (0-0.9); EOSINOPHILS % (AUTO) 0.7 % (0-6); HEMATOCRIT 22.2 % (42.0-52.0); LYMPHOCYTES % (AUTO) 7.8 % (21-51); MEAN CORPUSCULAR HEMOGLOBIN 32.6 PG (27.0-31.0); MEAN CORPUSCULAR HGB CONC 33.3 g/dL (33.0-36.5); MEAN CORPUSCULAR VOLUME 97.8 FL (78-98); MEAN PLATELET VOLUME 8.6 FL (7.4-10.4); MONOCYTES % (AUTO) 9.1 % (2-12); NEUTROPHILS # (AUTO) 7.5 X10'3 (1.8-7.7); NEUTROPHILS % (AUTO) 82.3 % (42-75); PLATELET COUNT 91 X10'3 (140-440); RED BLOOD COUNT 2.27 X10'6 (4.70-6.10); RED CELL DISTRIBUTION WIDTH 17.4 % (11.5-14.5); WHITE BLOOD COUNT 9.1 X10'3 (4.5-11.0)
[2024-12-12 08:41] LABS: ALANINE AMINOTRANSFERASE 35 U/L (12-78); ALBUMIN 3.6 G/DL (3.4-5.0); ALBUMIN/GLOBULIN RATIO 1.4 (1.1-1.5); ALKALINE PHOSPHATASE 51 IU/L (46-116); ANION GAP 10 (8-16); ASPARTATE AMINO TRANSFERASE 15 U/L (10-37); BILIRUBIN,TOTAL 0.6 MG/DL (0.1-1.0); BLOOD UREA NITROGEN 55 MG/DL (7-18); BUN/CREATININE RATIO 13.9 (10.0-20.0); CALCIUM 8.3 MG/DL (8.5-10.1); CHLORIDE 100 MMOL/L (99-107); CREATININE 3.96 MG/DL (0.60-1.10); GLUCOSE 139 MG/DL (70-104); MAGNESIUM 2.7 MG/DL (1.5-2.4); POTASSIUM 4.4 MMOL/L (3.5-5.1); SODIUM 138 MMOL/L (135-145); TOTAL CARBON DIOXIDE 27.6 MMOL/L (24-32); TOTAL PROTEIN 6.1 G/DL (6.4-8.2); eCRCL 19 ML/MIN; eGFR 15 ML/MIN
[2024-12-12] MEDS: albuterol 2.5 MG/3 ML nebule NEB PRN (10:28)
[2024-12-12 10:44] LABS: NUCLEATED RED BLOOD CELLS 2 /100WBC (0-0); PLATELET ESTIMATE DECREASED; TOTAL CELLS COUNTED 100
[2024-12-12 10:45] LABS: ANISOCYTOSIS 1+
[2024-12-12] MEDS: midodrine 5mg tablet PO SCH (12:31)
--- NOTE | 2024-12-12 17:31 | PROGRESS NOTE ---
Progress Note Dictate Providers to CC ~ Central Line/PICC still needed: Yes Central Line/PICC Necessity: Req HD/Plasmapheresis [place] Indications Met/Not Met: F/C Indications Not Met Antibiotic Ordered?: N/A Subjective Subjective the pateint feels better. The problem as verified with [place] [facility] is his hypotension on attempt to ultrafiltrate. he does not tolerate Midodrine either. Florinef will only make him more fluid overloaded, being a lfuid retaining minerlaocorticoid. will dialyze him here tomorrow. hopefullly his pneumonia should be better by then, Objective Vitals Vital Signs Date Time Temp Pulse Resp B/P (MAP) Pulse Ox O2 Delivery O2 Flow Rate FiO2 12/12/24 15:00 97.0 89 24 87/59 (68) 96 Nasal Cannula 2.5 12/12/24 14:13 30 Lab Results: 12/12/24 0727 12/12/24 0727 Objective lungs bilateral crackles needing O2 CVS: RRRAbd: bS+ Ext: edema + Coagulation Studies Laboratory Tests Test 12/10/24 12:49 D-Dimer 1.91 MG/L FEU (0-0.50) H D-Dimer Comment Advance Care Planning Advanced Care plannin - 30 Minutes Problem\Assessment\Plan Problems/Diagnosis: (1) Acute respiratory failure Assessment & Plan: HD tomorrow again. 2 days back to back dialysis done. (2) ESRD (end stage renal disease) Assessment & Plan: HD again tomorrow with 3-4 liters off as otlerated. (3) Anemia Assessment & Plan: epogen with dialysis Sepsis Screening Skin Color: Normal CRYSTAL DE LA FUENTE MD December 12, 2024 17:31
--- NOTE | 2024-12-12 19:15 | RADIOLOGY REPORT ---
EXAM: US ULTRASOUND OF ABDOMEN HISTORY: eval for ascities COMPARISON: US ULTRASOUND OF ABDOMEN on DOS: 11/30/24 TECHNIQUE: Real time ultrasonography of the 4 quadrants was performed. IMPRESSION: Small to moderate amount of free fluid noted in RUQ and to lesser extent in RLQ and LLQ.
[2024-12-12] MEDS: HYDROcodone/acetaminophen 5mg/325mg tablet PO PRN (21:25)
--- NOTE | 2024-12-12 21:35 | PROGRESS NOTE ---
Daily Progress Note Providers to CC ~ Antibiotic Timeout Antibiotic Ordered?: Yes Subjective The patient remains short of breath- he was requesting a thoracentesis and a paracentesis however does only a small pleural effusion bilaterally on chest x- ray and the patient only has [id number] ascites seen on ultrasound thus neither per seizure is warranted at this juncture. The patient is to have dialysis tomorrow and hopefully discharge afterwards Objective Vital Signs Date Time Temp Pulse Resp B/P (MAP) Pulse Ox O2 Delivery O2 Flow Rate FiO2 12/12/24 20:29 65 25 96 30 25 12/12/24 15:00 97.0 87/59 (68) Nasal Cannula 2.5 Result Diagram: 12/12/2472612/12/24 07 Gen. No acute distress alert and oriented 4 Lungs clear to ascultation bilaterally, no wheezes rales or rhonchi appreciated Heart irregular rhythm no murmurs rubs or clicks noted Abdomen soft nontender bowel sounds are normoactive Lower extremities no clubbing cyanosis, 2+ pitting edema appreciated bilaterally Skin excoriations in regions of erythema with superficial ulcerations appreciated bilaterally Coagulation Studies Laboratory Tests Test 12/10/24 12:49 D-Dimer 1.91 MG/L FEU (0-0.50) H D-Dimer Comment Problem\Assessment\Plan Problems/Diagnosis: (1) Respiratory failure # acute worsening of chronic respiratory failure on 3 L oxygen at baseline- likely multifactorial including fluid overload due to non compliance with fluid restriction and bilateral bacterial pneumonia NOS- Respiratory therapies ordered as well as DuoNeb and albuterol nebs 12/12 close to baseline # atrial fibrillation persistent Continue diltiazem Continue apixaban for DVT and stroke prophylaxis # multifocal bacterial pneumonia NOS- IV Zosyn # end-stage renal disease on dialysis- Evaluated by spark plug assembler Dr. Almaguer whom is arranging for dialysis this evening 12/11 received a 2nd dialysis treatment today 12/12 dialysis in the a.m. as per Nephrology # hyperkalemia - Significantly improved with dialysis serum potassium was 5.3 this morning The patient received temporary hyperkalemic treatment measures a [facility] 12/12 resolved # jtz-[id number]-hlbloxjtm diabetes mellitus and a hyper and hypoglycemic protocol # macrocytic anemia- Monitor daily CBC Received Epogen 12/11 hemoglobin slowly downtrending continue monitor daily CBC and transfuse if hemoglobin is below seven Disposition: Home in the a.m. after dialysis if the patient remained stable. Sepsis Screening Skin Color: Normal Date of Service: December 12, 2024 Billing Provider: DAYDAY ACOSTA DO Common Visit Codes: [id number] INP/OBS CARE(HIGH) Problem Qualifiers (1) Respiratory failure: Qualified Codes: J96.21 - Acute and chronic respiratory failure with hypoxia DAYDAY ACOSTA DO December 12, 2024 21:35
[2024-12-12] MEDS: LORazepam 0.5 MG tablet PO ONE (23:40)
[2024-12-13] VITALS (24 sets, daily range): BP systolic 82–109; BP diastolic 45–70; PULSE 62–109; RESP 13–23; TEMP 96.4–98.2; O2SAT 92–100
[2024-12-13 08:29] LABS: BASOPHILS % (AUTO) 0.2 % (0-1); EOSINOPHILS # (AUTO) 0.2 X10'3 (0-0.9); EOSINOPHILS % (AUTO) 1.7 % (0-6); HEMATOCRIT 24.7 % (42.0-52.0); HEMOGLOBIN 7.9 g/dl (14.0-17.9); LYMPHOCYTES # (AUTO) 0.7 X10'3 (1.1-4.8); LYMPHOCYTES % (AUTO) 5.5 % (21-51); MEAN CORPUSCULAR HEMOGLOBIN 31.5 PG (27.0-31.0); MEAN CORPUSCULAR HGB CONC 32.1 g/dL (33.0-36.5); MEAN CORPUSCULAR VOLUME 98.2 FL (78-98); MEAN PLATELET VOLUME 8.3 FL (7.4-10.4); MONOCYTES # (AUTO) 1.5 X10'3 (0-0.9); MONOCYTES % (AUTO) 12.4 % (2-12); NEUTROPHILS # (AUTO) 9.8 X10'3 (1.8-7.7); NEUTROPHILS % (AUTO) 80.2 % (42-75); PLATELET COUNT 105 X10'3 (140-440); RED BLOOD COUNT 2.51 X10'6 (4.70-6.10); RED CELL DISTRIBUTION WIDTH 18.2 % (11.5-14.5); WHITE BLOOD COUNT 12.2 X10'3 (4.5-11.0)
[2024-12-13 08:52] LABS: ALANINE AMINOTRANSFERASE 30 U/L (12-78); ALBUMIN 3.3 G/DL (3.4-5.0); ALBUMIN/GLOBULIN RATIO 1.2 (1.1-1.5); ALKALINE PHOSPHATASE 51 IU/L (46-116); ANION GAP 11 (8-16); ASPARTATE AMINO TRANSFERASE 12 U/L (10-37); BILIRUBIN,TOTAL 0.6 MG/DL (0.1-1.0); BLOOD UREA NITROGEN 67 MG/DL (7-18); BUN/CREATININE RATIO 12.2 (10.0-20.0); CALCIUM 8.4 MG/DL (8.5-10.1); CHLORIDE 99 MMOL/L (99-107); CREATININE 5.51 MG/DL (0.60-1.10); GLUCOSE 124 MG/DL (70-104); MAGNESIUM 2.8 MG/DL (1.5-2.4); POTASSIUM 4.8 MMOL/L (3.5-5.1); SODIUM 136 MMOL/L (135-145); TOTAL CARBON DIOXIDE 25.6 MMOL/L (24-32); eCRCL 13 ML/MIN; eGFR 11 ML/MIN
--- NOTE | 2024-12-13 08:59 | RADIOLOGY REPORT ---
CHEST RADIOGRAPH Indication: reeval multifocal pneumonia Technique: Single frontal view of the chest was obtained COMPARISON: DI CHEST,SINGLE VIEW on DOS: 12/11/24, DI CHEST,SINGLE VIEW on DOS: 12/10/24, DI CHEST,SING LE VIEW on DOS: 11/29/24, XR CHEST 1 VIEW AP OR PA on DOS: 11/28/24, DI CHEST,SINGLE VIEW on DOS: FINDINGS: Lines and Tubes: Median sternotomy Lungs: Multifocal airspace disease Pleura: Small right and left pleural effusion. No pneumothorax. Cardiomediastinal contours: Cardiomegaly Bones: Unremarkable IMPRESSION: Slightly improved aeration of the lungs.
[2024-12-13] MEDS: heparin 1,000 units/ml 10ml inj HE ONE ×2 (12:39→12:40)
[2024-12-13] MEDS: HYDROmorphone/PF 0.2 MG/ML SYRINGE IV PRN (12:45)
[2024-12-13] MEDS: LIDOcaine 1% (10mg/ml) 2ml vial SQ ONE (17:32)
[2024-12-13] MEDS: albumin (human) 25% 100ml IV 100 ML IV PRN (17:51)
[2024-12-13] MEDS: EPOETIN ALFA-EPBX 20,000 UNIT/ML 1 ML MDV IV ONE (17:52)
--- NOTE | 2024-12-13 17:53 | PROGRESS NOTE- Residence ---
Progress Note - Resident Providers to CC Resident Creating Document: ARTHUR BOYD RES ~ Antibiotic Timeout Antibiotic Ordered?: No Subjective Patient was seen and examined at bedside, had another session of dialysis today Objective Vital Signs Date Time Temp Pulse Resp B/P (MAP) Pulse Ox O2 Delivery O2 Flow Rate FiO2 12/13/24 17:20 97.9 91 22 92/56 (68) 96 Nasal Cannula 3.0 12/13/24 15:21 32 Result Diagram: 12/13/24 0741 12/13/24 0741 HEENT: Atraumatic, normocephalic, EOMI, anicteric sclera ; pink conjunctiva Neck: Trachea midline. Supple, full range of motion, no JVD Cardiac: Regular rhythm, regular rate with no murmurs all over the precordium. Respiratory: Equal breath sounds bilaterally, no tachypnea, no wheezing ,rub or rales, Chest wall is symmetric and without deformity. Gastrointestinal: Abdomen symmetric, non-distended, soft, non-tender, normal bowel sounds x4 quadrant, normoactive, no hepatosplenomegaly Neurological: Speech is clear, alert, and oriented x 4. No motor or sensory deficit, deep tendon reflexes normal, cerebellar intact. Cranial nerves II-XII intact. Skin: Warm and dry Coagulation Studies Laboratory Tests Test 12/10/24 12:49 D-Dimer 1.91 MG/L FEU (0-0.50) H D-Dimer Comment Advance Care Planning Advanced Care plannin - 30 Minutes Assessment Assessment This is a 64-year-old male who presented to [facility] ED with worsening shortness of breath as well as fatigue he does complain of cough with dark sputum production denies any fever or chills is on 3 L oxygen at home patient was transferred to [facility] since he has a end-stage renal patient on dialysis the patient does have hyperkalemia however serum potassium is lower than prior presentations ED at 6.2 the patient is minimally elevated high sensitivity troponins at 1:58 a.m. and 145 both of which are nondiagnostic due to the patient's end-stage renal disease with a creatinine on presentation of 6.92. Plan Plan End-stage renal disease on dialysis- Creatinine: 5.51, BUN 57 Repeat hemodialysis today Initiated midodrine 10 mg t.i.d., recommended to continue as patient had repeated episodes of hypotension during dialysis, also noticed at dialysis center Advised for compression stockings, educated regarding the need for stockings especially during dialysis at the center Patient received 3rd round of hemodialysis today Abdominal ultrasound showed mild ascitic fluid Paracentesis has been ordered by primary team Discharge as per primary team's recommendations Hyperkalemia: Resolved Acute worsening of chronic respiratory failure on 3 L oxygen at baseline- likely multifactorial including fluid overload due to non compliance with fluid restriction and bilateral bacterial pneumonia Atrial fibrillation Multifocal pneumoniae Hyperkalemia Type 2 diabetes mellitus Macrocytic anemia Management as per primary hospitalist team Disposition: Such as per primary hospitalist's recommendations Case discussed with Dr. Brush Nephrology will continue to follow the patient Arthur Boyd MD Internal Medicine Resident, PGY-1 Date of Service: December 13, 2024 Billing Provider: SADA BRUSH III, GAURAV, RES December 13, 2024 17:53
[2024-12-13] MEDS: heparin 1,000 units/ml 10ml inj IV ONE (18:00)
[2024-12-13] MEDS: heparin 1,000unit/ml 10ml vial 10 ML IV ONE (18:01)
--- NOTE | 2024-12-13 21:32 | PROGRESS NOTE ---
Daily Progress Note Providers to CC ~ Antibiotic Timeout Antibiotic Ordered?: Yes Subjective The patient is not feel well his oxygen level is at his baseline of 3 L- patient received dialysis today- patient did not do so well physical therapy today as he is weak and is a high fall risk in his interested in rehab Objective Vital Signs Date Time Temp Pulse Resp B/P (MAP) Pulse Ox O2 Delivery O2 Flow Rate FiO2 12/13/24 20:20 97.0 101 20 101/67 (78) 99 Nasal Cannula 3.0 12/13/24 19:22 32 Result Diagram: 12/13/24 0741 12/13/24 0741 Gen. No acute distress alert and oriented 4 Lungs clear to ascultation bilaterally, no wheezes rales or rhonchi appreciated Heart irregular rhythm no murmurs rubs or clicks noted Abdomen soft nontender bowel sounds are normoactive Lower extremities no clubbing cyanosis, 2+ pitting edema appreciated bilaterally Skin excoriations in regions of erythema with superficial ulcerations appreciated bilaterally Coagulation Studies Laboratory Tests Test 12/10/24 12:49 D-Dimer 1.91 MG/L FEU (0-0.50) H D-Dimer Comment Problem\Assessment\Plan Problems/Diagnosis: (1) Respiratory failure # acute worsening of chronic respiratory failure on 3 L oxygen at baseline- likely multifactorial including fluid overload due to non compliance with fluid restriction and bilateral bacterial pneumonia NOS- Respiratory therapies ordered as well as DuoNeb and albuterol nebs 12/12 close to baseline 12/13 patient remains dyspneic # atrial fibrillation persistent Continue diltiazem Continue apixaban for DVT and stroke prophylaxis # multifocal bacterial pneumonia NOS- IV Zosyn # end-stage renal disease on dialysis- Evaluated by irish moss bleacher Dr. Almaguer whom is arranging for dialysis this evening 12/11 received a 2nd dialysis treatment today 12/12 dialysis in the a.m. as per Nephrology 12/13 received dialysis today # hyperkalemia - Significantly improved with dialysis serum potassium was 5.3 this morning The patient received temporary hyperkalemic treatment measures a [facility] 12/12 resolved # [id number] diabetes mellitus and a hyper and hypoglycemic protocol Blood sugar is mostly controlled no changes today # macrocytic anemia- Monitor daily CBC Received Epogen 12/11 hemoglobin slowly downtrending continue monitor daily CBC and transfuse if hemoglobin is below seven Disposition: The patient did not do well with physical therapy day on 12/13/2024- we will reach out to case management tomorrow for rehab placement Sepsis Screening Skin Color: Normal Date of Service: December 13, 2024 Billing Provider: DAYDAY ACOSTA DO Common Visit Codes: [id number] INP/OBS CARE(HIGH) Problem Qualifiers (1) Respiratory failure: Qualified Codes: J96.21 - Acute and chronic respiratory failure with hypoxia DAYDAY ACOSTA DO December 13, 2024 21:32
[2024-12-14] VITALS (26 sets, daily range): BP systolic 80–98; BP diastolic 50–64; PULSE 67–109; RESP 15–29; TEMP 97.3–98.9; O2SAT 91–100
[2024-12-14 07:35] LABS: BASOPHILS % (AUTO) 0.2 % (0-1); EOSINOPHILS # (AUTO) 0.1 X10'3 (0-0.9); EOSINOPHILS % (AUTO) 1.3 % (0-6); HEMOGLOBIN 7.1 g/dl (14.0-17.9); LYMPHOCYTES # (AUTO) 0.4 X10'3 (1.1-4.8); LYMPHOCYTES % (AUTO) 6.1 % (21-51); MEAN CORPUSCULAR HEMOGLOBIN 32.6 PG (27.0-31.0); MEAN CORPUSCULAR HGB CONC 32.9 g/dL (33.0-36.5); MEAN CORPUSCULAR VOLUME 99.1 FL (78-98); MONOCYTES # (AUTO) 1.1 X10'3 (0-0.9); MONOCYTES % (AUTO) 15.4 % (2-12); NEUTROPHILS # (AUTO) 5.4 X10'3 (1.8-7.7); PLATELET COUNT 85 X10'3 (140-440); RED BLOOD COUNT 2.18 X10'6 (4.70-6.10); RED CELL DISTRIBUTION WIDTH 18.1 % (11.5-14.5); WHITE BLOOD COUNT 6.9 X10'3 (4.5-11.0)
[2024-12-14 07:41] LABS: HEMATOCRIT 21.6 % (42.0-52.0)
[2024-12-14 08:19] LABS: ALANINE AMINOTRANSFERASE 41 U/L (12-78); ALBUMIN 3.3 G/DL (3.4-5.0); ALBUMIN/GLOBULIN RATIO 1.2 (1.1-1.5); ALKALINE PHOSPHATASE 52 IU/L (46-116); ANION GAP 11 (8-16); ASPARTATE AMINO TRANSFERASE 24 U/L (10-37); BILIRUBIN,TOTAL 0.7 MG/DL (0.1-1.0); BLOOD UREA NITROGEN 45 MG/DL (7-18); BUN/CREATININE RATIO 10.6 (10.0-20.0); CALCIUM 8.3 MG/DL (8.5-10.1); CHLORIDE 100 MMOL/L (99-107); CREATININE 4.26 MG/DL (0.60-1.10); GLUCOSE 147 MG/DL (70-104); MAGNESIUM 2.5 MG/DL (1.5-2.4); POTASSIUM 4.6 MMOL/L (3.5-5.1); SODIUM 138 MMOL/L (135-145); TOTAL CARBON DIOXIDE 26.9 MMOL/L (24-32); TOTAL PROTEIN 6.1 G/DL (6.4-8.2); eCRCL 17 ML/MIN; eGFR 14 ML/MIN
[2024-12-14 08:39] LABS: ANISOCYTOSIS 2+; NUCLEATED RED BLOOD CELLS 3 /100WBC (0-0); PLATELET ESTIMATE DECREASED; TOTAL CELLS COUNTED 100
[2024-12-14 08:40] LABS: POLYCHROMASIA FEW
[2024-12-14] MEDS: lactulose 20gm/30ml cup PO PRN (09:11)
--- NOTE | 2024-12-14 13:16 | PROGRESS NOTE ---
Progress Note Dictate Providers to CC ~ Antibiotic Ordered?: N/A Subjective Subjective Sitting up in a chair today, appears comfortable, he reports no specific complaints today, nurses report no new events since last evaluation Objective Vitals Vital Signs Date Time Temp Pulse Resp B/P (MAP) Pulse Ox O2 Delivery O2 Flow Rate FiO2 12/14/24 12:54 98.6 67 18 89/55 12/14/24 10:20 Nasal Cannula 3.0 12/14/24 10:13 100 32 General: Well appearing, well nourished, in no distress. Oriented x 3, Neck: Supple, without JVD Heart: Regular rate and rhythm, no murmur Lungs: Clear to auscultation and percussion Abdomen: Bowel sounds normal, no tenderness, organomegaly, masses, or hernia Extremities: No cyanosis, 1+ edema to knees, peripheral pulses intact Neurologic: Sensation to touch, normal. DTRs normal moves all extremities spontaneously. Lab Results: 12/14/24 0657 12/14/24 0657 Coagulation Studies Laboratory Tests Test 12/10/24 12:49 D-Dimer 1.91 MG/L FEU (0-0.50) H D-Dimer Comment Other Results I & O 12/14/24 07:00 Intake Total 1050 ml Output Total 3000 ml Balance -1950 ml Intake Oral 550 ml Hemodialysis 500 ml Output Hemodialysis 3000 ml # Voids 3 Problem\Assessment\Plan Problems/Diagnosis: (1) Acute respiratory failure Assessment & Plan: Hemodialysis yesterday without complications, shortness of breath improved (2) ESRD (end stage renal disease) Assessment & Plan: Hemodialysis yesterday without complications, much improved today he reports that his shortness of breath is much better, reviewed his labs and physical examination findings no indication for dialysis today, likely will be dialyzed on Monday with the following prescription all relevant labs and reports were reviewed to develop this dialysis prescription today iHD 3 Hours Access TDC Dialyzer Elisio 15H BFR 350 DFR 2 X BFR Na 140 K 3 HCO3 34 Ca 2.5 YADIRA 10K Units Albumion N Mannitol N UF 2-3 liters as tolerated Hyperphosphatemia, goal phosphorus in the hospital 5.5 or less, continue home phosphorus binders (3) Anemia Assessment & Plan: Hemoglobin goal between 10 and 11.5, YADIRA indicated, erythropoietin 10,000 units with dialysis Sepsis Screening Skin Color: Normal WALL,SADA M III DO December 14, 2024 13:16
[2024-12-14] MEDS ORDERED: normal saline 1000ml 100 ML IV PRN (13:20)
[2024-12-14] MEDS: heparin 1,000 units/ml 10ml inj HE ONE ×2 (13:25)
--- NOTE | 2024-12-14 21:00 | PROGRESS NOTE ---
Daily Progress Note Providers to CC ~ Antibiotic Timeout Antibiotic Ordered?: Yes Subjective The patient is feeling better day he still short of breath but he states he is at his baseline- I spoke to Dr. Brush pulp cooker who assessed that the patient will likely be ready for rehab in a couple of days- the patient is accepting of rehab however would rather go home if possible. Objective Vital Signs Date Time Temp Pulse Resp B/P (MAP) Pulse Ox O2 Delivery O2 Flow Rate FiO2 12/14/24 19:22 97 21 Bi-pap 30 12/14/24 19:16 94 12/14/24 18:00 97.7 89/50 (63) 12/14/24 10:20 3.0 Result Diagram: 12/14/2457 12/14/24 06 Gen. No acute distress alert and oriented 4 Lungs coarse breath sounds are scattered Heart irregular rhythm no murmurs rubs or clicks noted Abdomen soft nontender bowel sounds are normoactive Lower extremities no clubbing cyanosis, 2+ pitting edema appreciated bilaterally Skin excoriations in regions of erythema with superficial ulcerations appreciated bilaterally Coagulation Studies Laboratory Tests Test 12/10/24 12:49 D-Dimer 1.91 MG/L FEU (0-0.50) H D-Dimer Comment Problem\Assessment\Plan Problems/Diagnosis: (1) Respiratory failure # acute worsening of chronic respiratory failure on 3 L oxygen at baseline- likely multifactorial including fluid overload due to non compliance with fluid restriction and bilateral bacterial pneumonia NOS- Respiratory therapies ordered as well as DuoNeb and albuterol nebs 12/12 close to baseline 12/13 patient remains dyspneic 12/14 dyspneic but stable- chest x-ray is ordered for the morning- eval for possible thoracentesis # atrial fibrillation persistent Continue diltiazem Continue apixaban for DVT and stroke prophylaxis # multifocal bacterial pneumonia NOS- IV Zosyn # end-stage renal disease on dialysis- Evaluated by pulp cooker Dr. Almaguer whom is arranging for dialysis this evening 12/11 received a 2nd dialysis treatment today 12/12 dialysis in the a.m. as per Nephrology 12/13 received dialysis today # hyperkalemia - Significantly improved with dialysis serum potassium was 5.3 this morning The patient received temporary hyperkalemic treatment measures a [facility] 12/12 resolved # [id number] diabetes mellitus and a hyper and hypoglycemic protocol Blood sugar is mostly controlled no changes today # macrocytic anemia- Monitor daily CBC Received Epogen 12/11 hemoglobin slowly downtrending continue monitor daily CBC and transfuse if hemoglobin is below seven 12/14 hemoglobin dropped to 7.1 today thus I decided to transfuse the patient 1 unit packed red blood cells consents were signed and the patient received 1 unit of packed red blood cells Disposition: The patient did not do well with physical therapy day on 12/13/2024- we will reach out to case management tomorrow for rehab placement Sepsis Screening Skin Color: Normal Date of Service: December 14, 2024 Billing Provider: DAYDAY ACOSTA DO Common Visit Codes: [id number] INP/OBS CARE(HIGH) Problem Qualifiers (1) Respiratory failure: Qualified Codes: J96.21 - Acute and chronic respiratory failure with hypoxia DAYDAY ACOSTA DO December 14, 2024 21:00
[2024-12-15] VITALS (22 sets, daily range): BP systolic 90–106; BP diastolic 47–73; PULSE 65–129; RESP 16–39; TEMP 97.3–98.9; O2SAT 92–100
--- NOTE | 2024-12-15 06:56 | RADIOLOGY REPORT ---
CHEST RADIOGRAPH Indication: Coarse breath sounds in the patient with respiratory failure Technique: Single frontal view of the chest was obtained COMPARISON: DI CHEST,SINGLE VIEW on DOS: 12/13/24, DI CHEST,SINGLE VIEW on DOS: 12/11/24, DI CHEST,SING LE VIEW on DOS: 12/10/24, DI CHEST,SINGLE VIEW on DOS: 11/29/24, XR CHEST 1 VIEW AP OR PA on DOS: FINDINGS: Lines and Tubes: None Lungs: Mild interval progression in small bilateral pleural effusions and bibasilar pulmonary opaciti es. No pneumothorax. Cardiomediastinal contours: Unremarkable Bones: Unremarkable IMPRESSION: 1. Mildly progressive bilateral pleural effusions and bibasilar pulmonary opacities.
[2024-12-15] MEDS ORDERED: albumin (human) 25% 100ml IV 100 ML IV PRN (07:50)
[2024-12-15] MEDS: LIDOcaine 1% (10mg/ml) 2ml vial SQ ONE (08:00)
[2024-12-15 08:46] LABS: BASOPHILS % (AUTO) 0.4 % (0-1); EOSINOPHILS # (AUTO) 0.1 X10'3 (0-0.9); EOSINOPHILS % (AUTO) 1.7 % (0-6); HEMATOCRIT 28.1 % (42.0-52.0); LYMPHOCYTES # (AUTO) 0.5 X10'3 (1.1-4.8); LYMPHOCYTES % (AUTO) 7.3 % (21-51); MEAN CORPUSCULAR HEMOGLOBIN 30.1 PG (27.0-31.0); MEAN CORPUSCULAR VOLUME 94.2 FL (78-98); MEAN PLATELET VOLUME 8.2 FL (7.4-10.4); MONOCYTES # (AUTO) 0.9 X10'3 (0-0.9); NEUTROPHILS # (AUTO) 5.2 X10'3 (1.8-7.7); NEUTROPHILS % (AUTO) 76.6 % (42-75); PLATELET COUNT 87 X10'3 (140-440); RED BLOOD COUNT 2.99 X10'6 (4.70-6.10); RED CELL DISTRIBUTION WIDTH 24.8 % (11.5-14.5); WHITE BLOOD COUNT 6.7 X10'3 (4.5-11.0)
[2024-12-15 09:13] LABS: ALANINE AMINOTRANSFERASE 30 U/L (12-78); ALBUMIN/GLOBULIN RATIO 1.1 (1.1-1.5); ALKALINE PHOSPHATASE 49 IU/L (46-116); ANION GAP 12 (8-16); ASPARTATE AMINO TRANSFERASE 18 U/L (10-37); BILIRUBIN,TOTAL 0.7 MG/DL (0.1-1.0); BLOOD UREA NITROGEN 56 MG/DL (7-18); BUN/CREATININE RATIO 9.8 (10.0-20.0); CALCIUM 8.2 MG/DL (8.5-10.1); CHLORIDE 100 MMOL/L (99-107); CREATININE 5.69 MG/DL (0.60-1.10); GLUCOSE 95 MG/DL (70-104); MAGNESIUM 2.7 MG/DL (1.5-2.4); POTASSIUM 4.7 MMOL/L (3.5-5.1); SODIUM 137 MMOL/L (135-145); TOTAL CARBON DIOXIDE 24.6 MMOL/L (24-32); TOTAL PROTEIN 5.7 G/DL (6.4-8.2); eCRCL 13 ML/MIN; eGFR 10 ML/MIN
[2024-12-15] MEDS: EPOETIN ALFA-EPBX 20,000 UNIT/ML 1 ML MDV IV ONE (09:53)
--- NOTE | 2024-12-15 11:38 | PROGRESS NOTE ---
Progress Note Dictate Providers to CC ~ Antibiotic Ordered?: N/A Subjective Subjective He reports doing well this morning, seen and evaluated while on dialysis, nurses report no new events since last evaluation Objective Vitals Vital Signs Date Time Temp Pulse Resp B/P (MAP) Pulse Ox O2 Delivery O2 Flow Rate FiO2 12/15/24 11:11 84 20 97 Nasal Cannula* 3 32 12/15/24 11:05 97.6 103/69 (80) General: Well appearing, well nourished, in no distress. Oriented x 3, Neck: Supple, without JVD Heart: Regular rate and rhythm, no murmur Lungs: Clear to auscultation and percussion Abdomen: Bowel sounds normal, no tenderness, organomegaly, masses, or hernia Extremities: No cyanosis, no edema, peripheral pulses intact Neurologic: Sensation to touch, normal. DTRs normal moves all extremities spontaneously. Lab Results: 12/15/24 0722 12/15/24 0722 Coagulation Studies Laboratory Tests Test 12/10/24 12:49 D-Dimer 1.91 MG/L FEU (0-0.50) H D-Dimer Comment Other Results I & O 12/15/24 07:00 Intake Total 1430 ml Balance 1430 ml Intake Oral 1130 ml Blood Product 300 ml # Bowel Movements 1 Problem\Assessment\Plan Problems/Diagnosis: (1) Acute respiratory failure Assessment & Plan: Hemodialysis today without complications, shortness of breath improved (2) ESRD (end stage renal disease) Assessment & Plan: Hemodialysis yesterday without complications, much improved today he reports that his shortness of breath is much better, reviewed his labs and physical examination findings no indication for dialysis today, likely will be dialyzed on Monday with the following prescription All relevant labs and reports were reviewed to develop this dialysis prescription today iHD 3 Hours Access TDC Dialyzer Elisio 15H BFR 350 DFR 2 X BFR Na 140 K 3 HCO3 34 Ca 2.5 YADIRA 10K Units Albumion N Mannitol N UF 2-3 liters as tolerated Hyperphosphatemia, goal phosphorus in the hospital 5.5 or less, continue home phosphorus binders (3) Anemia Assessment & Plan: Hemoglobin goal between 10 and 11.5, YADIRA indicated, erythropoietin 10,000 units with dialysis Sepsis Screening Skin Color: Normal WALL,SADA M III DO Dec 15, 2024 11:38
--- NOTE | 2024-12-15 15:38 | PROGRESS NOTE ---
Daily Progress Note Providers to CC ~ Antibiotic Timeout Antibiotic Ordered?: No Subjective No new complaints, seen resting comfortably. Objective Vital Signs Date Time Temp Pulse Resp B/P (MAP) Pulse Ox O2 Delivery O2 Flow Rate FiO2 12/15/24 13:58 16 12/15/24 13:58 102 Nasal Cannula 3.0 12/15/24 13:50 95 32 12/15/24 11:05 97.6 103/69 (80) Result Diagram: 12/15/24 0722 12/15/24 0722 Alert oriented in NAD HEENT NC, AT , EOMI, Sclera anicteric, conjuctiva pinkish, moist oral mucosa Neck supple, no JVD , Chest clear to auscultation , no wheezes crackles or rhonchi Heart RRR, No murmur gallop or rub Abdomen soft nontender no organomegaly Extremities No C/C/E LUE AVF with good bruit Neuro exam nonfocal Skin: Right leg wound with guaze wrap Coagulation Studies Laboratory Tests Test 12/10/24 12:49 D-Dimer 1.91 MG/L FEU (0-0.50) H D-Dimer Comment Other Results Medications reviewed Problem\Assessment\Plan Problems/Diagnosis: (1) Respiratory failure # acute on chronic respiratory failure on 3 L oxygen at baseline- likely multifactorial including fluid overload due to non compliance with fluid restriction and bilateral bacterial pneumonia NOS-Continue supplemental oxygen. # atrial fibrillation persistent Continue diltiazem Continue apixaban for DVT and stroke prophylaxis # multifocal bacterial pneumonia NOS- IV Zosyn # end-stage renal disease on dialysis- Followed by nephrology Likely HD in am per notes. # hyperkalemia - Significantly improved with dialysis serum potassium was 5.3 this morning The patient received temporary hyperkalemic treatment measures a [facility] 12/12 resolved # [id number] diabetes mellitus and a hyper and hypoglycemic protocol Blood sugar is mostly controlled no changes today # macrocytic anemia- Monitor daily CBC Received Epogen 12/11 hemoglobin slowly downtrending 12/14 hemoglobin dropped to 7.1 and patient transfused 1 unit packed red blood cells Disposition: SNF when available Sepsis Screening Skin Color: Normal Date of Service: Dec 15, 2024 Billing Provider: VESNA GONZALEZ MD Common Visit Codes: [id number] INP/OBS CARE(HIGH) Problem Qualifiers (1) Respiratory failure: Qualified Codes: J96.21 - Acute and chronic respiratory failure with hypoxia VESNA GONZALEZ MD Dec 15, 2024 15:38
[2024-12-15] MEDS: NUT.TX.IMP.RENAL FXN,LAC-REDUC (Nepro) 237 ML VANILLA PO SCH (17:00)
[2024-12-15] MEDS: magnesium hydroxide 30ml (MOM) UD suspension PO PRN (19:33)
[2024-12-16] VITALS (18 sets, daily range): BP systolic 90–100; BP diastolic 57–70; PULSE 75–116; RESP 18–28; TEMP 97.6–98.6; O2SAT 95–99
[2024-12-16 07:20] LABS: BASOPHILS % (AUTO) 0.3 % (0-1); EOSINOPHILS # (AUTO) 0.1 X10'3 (0-0.9); HEMATOCRIT 27.1 % (42.0-52.0); HEMOGLOBIN 8.7 g/dl (14.0-17.9); LYMPHOCYTES # (AUTO) 0.5 X10'3 (1.1-4.8); MEAN CORPUSCULAR HGB CONC 32.1 g/dL (33.0-36.5); MEAN PLATELET VOLUME 7.7 FL (7.4-10.4); WHITE BLOOD COUNT 5.7 X10'3 (4.5-11.0)
[2024-12-16 07:22] LABS: EOSINOPHILS % (AUTO) 1.8 % (0-6); LYMPHOCYTES % (AUTO) 8.8 % (21-51); MEAN CORPUSCULAR HEMOGLOBIN 30.3 PG (27.0-31.0); MEAN CORPUSCULAR VOLUME 94.2 FL (78-98); MONOCYTES # (AUTO) 1.2 X10'3 (0-0.9); MONOCYTES % (AUTO) 20.5 % (2-12); NEUTROPHILS # (AUTO) 3.9 X10'3 (1.8-7.7); NEUTROPHILS % (AUTO) 68.6 % (42-75); PLATELET COUNT 92 X10'3 (140-440); RED BLOOD COUNT 2.88 X10'6 (4.70-6.10); RED CELL DISTRIBUTION WIDTH 24.7 % (11.5-14.5)
[2024-12-16 07:25] LABS: ANION GAP 11 (8-16); BLOOD UREA NITROGEN 36 MG/DL (7-18); CALCIUM 8.1 MG/DL (8.5-10.1); CHLORIDE 101 MMOL/L (99-107); CREATININE 4.51 MG/DL (0.60-1.10); GLUCOSE 108 MG/DL (70-104); POTASSIUM 4.4 MMOL/L (3.5-5.1); SODIUM 140 MMOL/L (135-145); eCRCL 16 ML/MIN; eGFR 13 ML/MIN
[2024-12-16] MEDS ORDERED: normal saline 1000ml 100 ML IV PRN (08:00)
[2024-12-16 08:45] LABS: ANISOCYTOSIS 3+; NUCLEATED RED BLOOD CELLS 1 /100WBC (0-0); PLATELET ESTIMATE DECREASED; TOTAL CELLS COUNTED 100
--- NOTE | 2024-12-16 11:42 | PROGRESS NOTE- Residence ---
Progress Note - Resident Providers to CC Resident Creating Document: GABRIELE ENGLISH RES ~ Antibiotic Timeout Antibiotic Ordered?: Yes Subjective Patient seen and examined today. Is requiring about 3 L oxygen via nasal cannula. States that he feels okay today. Denies any new complaints. States that his fistula bled after taking out needles at the dialysis center about a week back and so was transferred to [facility] and got sutures done. Objective Vital Signs Date Time Temp Pulse Resp B/P (MAP) Pulse Ox O2 Delivery O2 Flow Rate FiO2 12/16/24 08:14 98 22 Nasal Cannula 3.0 12/16/24 08:06 99 32 12/16/24 02:00 97.8 97/63 (74) Result Diagram: 12/16/24 0647 12/16/24 0647 General: Alert and oriented x 4 HEENT: Normocephalic and atraumatic. Pupils equal round and reactive to light and accommodation. Extraocular movements intact. Oral and nasal mucosa moist Neck: Trachea is in midline. No masses or JVD Lungs: Bilateral mildly decreased breath sounds. Bilateral rhonchi and basal crackles present. No wheezing Heart: Irregular rhythm. Regular rate. No rubs or murmurs Abdomen: Soft, nontender and nondistended. Bowel sounds present LIEUTENANT/DEPUTY: No gross sensory or motor abnormalities Extremities: No cyanosis, clubbing or edema. Left arm fistula present Skin: Warm and dry Coagulation Studies Laboratory Tests Test 12/10/24 12:49 D-Dimer 1.91 MG/L FEU (0-0.50) H D-Dimer Comment Assessment Assessment This is a 64-year-old male who presented to [facility] ED with worsening shortness of breath as well as fatigue he does complain of cough with dark sputum production denies any fever or chills is on 3 L oxygen at home patient was transferred to [facility] since he has a end-stage renal patient on dialysis the patient does have hyperkalemia however serum potassium is lower than prior presentations ED at 6.2 the patient is minimally elevated high sensitivity troponins at 1:58 a.m. and 145 both of which are nondiagnostic due to the patient's end-stage renal disease with a creatinine on presentation of 6.92. Plan Plan End-stage renal disease on dialysis-left arm fistula Regularly gets dialysis on Monday, and Monday Significant hyperkalemia - resolved after dialysis Got a dialysis done yesterday - 5th one BUN 36 and creatinine 4.51 Potassium within normal limits Corrected calcium within normal limits Continue midodrine 10 mg t.i.d., recommended to continue as patient had repeated episodes of hypotension during dialysis, also noticed at dialysis center Advised for compression stockings, educated regarding the need for stockings especially during dialysis at the center Acute worsening of chronic respiratory failure on 3 L oxygen at baseline- likely multifactorial including fluid overload due to non compliance with fluid restriction and bilateral bacterial pneumonia Multifocal pneumoniae On Zosyn 3.375 g IV q.12h Management as per primary hospitalist team Atrial fibrillation with controlled ventricular rate One diltiazem 120 mg p.o. daily Eliquis 5 mg p.o. q.12h Diabetes mellitus type 2 On hyperglycemic protocol Gabriele English MD Internal Medicine Resident, PGY 2 Date of Service: Dec 16, 2024 Billing Provider: SADA COSTELLO III, MANOJNA RES Dec 16, 2024 11:42
--- NOTE | 2024-12-16 14:59 | PROGRESS NOTE ---
Daily Progress Note Providers to CC ~ Antibiotic Timeout Antibiotic Ordered?: Yes Subjective No new complaints, patient is wearing a nasal BIPAP mask , Objective Vital Signs Date Time Temp Pulse Resp B/P (MAP) Pulse Ox O2 Delivery O2 Flow Rate FiO2 12/16/24 12:31 94 22 96 30 22 12/16/24 08:14 Nasal Cannula 3.0 12/16/24 02:00 97.8 97/63 (74) Result Diagram: 12/16/24 0647 12/16/24 0647 Alert oriented in NAD HEENT NC, AT , EOMI, Sclera anicteric, conjuctiva pinkish, moist oral mucosa Neck supple, no JVD , Chest clear to auscultation , no wheezes crackles or rhonchi Heart RRR, No murmur gallop or rub Abdomen soft nontender no organomegaly Extremities No C/C/E LUE AVF with good bruit Neuro exam nonfocal Skin: Right leg wound with guaze wrap Coagulation Studies Laboratory Tests Test 12/10/24 12:49 D-Dimer 1.91 MG/L FEU (0-0.50) H D-Dimer Comment Other Results Medications reviewed Problem\Assessment\Plan Problems/Diagnosis: (1) Respiratory failure # acute on chronic respiratory failure on 3 L oxygen at baseline : Continue supplemental oxygen and BIPAP # atrial fibrillation persistent Continue diltiazem Continue apixaban for DVT and stroke prophylaxis # multifocal bacterial pneumonia NOS- IV Zosyn # end-stage renal disease on dialysis- Followed by nephrology # hyperkalemia - Significantly improved with dialysis The patient received temporary hyperkalemic treatment measures a [facility] 12/12 resolved # [id number] diabetes mellitus and a hyper and hypoglycemic protocol Blood sugar is mostly controlled no changes today # macrocytic anemia- Continue Monitor daily CBC Received Epogen 12/11 hemoglobin slowly downtrending 12/14 hemoglobin dropped to 7.1 and patient transfused 1 unit packed red blood cells # Pleural effusion Requested Dr. Lester to evaluate patient for thoracentesis Disposition: SNF when available Sepsis Screening Skin Color: Normal Date of Service: Dec 16, 2024 Billing Provider: VESNA GONZALEZ MD Common Visit Codes: [id number] INP/OBS CARE(HIGH) Problem Qualifiers (1) Respiratory failure: Qualified Codes: J96.21 - Acute and chronic respiratory failure with hypoxia VESNA GONZALEZ MD Dec 16, 2024 14:59
--- NOTE | 2024-12-16 15:03 | RADIOLOGY REPORT ---
EXAM: DI CHEST,SINGLE VIEW Indication: pleural effusion Technique: Single frontal view of the chest was obtained Comparison: DI CHEST,SINGLE VIEW on DOS: 12/15/24, DI CHEST,SINGLE VIEW on DOS: 12/13/24, DI CHEST,SINGL E VIEW on DOS: 12/11/24, DI CHEST,SINGLE VIEW on DOS: 12/10/24, DI CHEST,SINGLE VIEW on DOS: 11/29/24 FINDINGS: Lines and Tubes: None Lungs: Multifocal consolidative opacities. Moderate left pleural effusion. Small right pleural effu avery. No pneumothorax. Cardiomediastinal contours: Cardiomegaly. Bones: No acute osseous abnormality. IMPRESSION: Moderate left pleural effusion. Cardiomegaly. Multifocal bilateral opacities
[2024-12-17] VITALS (26 sets, daily range): BP systolic 88–101; BP diastolic 54–68; PULSE 61–101; RESP 15–38; TEMP 97–98.5; O2SAT 93–100
[2024-12-17] MEDS: LIDOcaine 1% (10mg/ml) 2ml vial SQ ONE (06:08)
[2024-12-17 06:51] LABS: BASOPHILS % (AUTO) 0.7 % (0-1); EOSINOPHILS # (AUTO) 0.1 X10'3 (0-0.9); EOSINOPHILS % (AUTO) 2.2 % (0-6); HEMATOCRIT 24.9 % (42.0-52.0); HEMOGLOBIN 8.1 g/dl (14.0-17.9); LYMPHOCYTES # (AUTO) 0.5 X10'3 (1.1-4.8); LYMPHOCYTES % (AUTO) 9.4 % (21-51); MEAN CORPUSCULAR HEMOGLOBIN 30.2 PG (27.0-31.0); MEAN CORPUSCULAR HGB CONC 32.4 g/dL (33.0-36.5); MEAN CORPUSCULAR VOLUME 93.4 FL (78-98); MEAN PLATELET VOLUME 7.7 FL (7.4-10.4); MONOCYTES # (AUTO) 0.9 X10'3 (0-0.9); MONOCYTES % (AUTO) 17.7 % (2-12); NEUTROPHILS # (AUTO) 3.5 X10'3 (1.8-7.7); PLATELET COUNT 99 X10'3 (140-440); RED BLOOD COUNT 2.67 X10'6 (4.70-6.10); RED CELL DISTRIBUTION WIDTH 24.9 % (11.5-14.5)
[2024-12-17] MEDS: albumin (human) 25% 100ml IV 100 ML IV PRN (06:56)
[2024-12-17] MEDS: EPOETIN ALFA-EPBX 20,000 UNIT/ML 1 ML MDV IV ONE (07:32)
[2024-12-17 08:27] LABS: ALBUMIN 2.5 G/DL (3.4-5.0); ANION GAP 10 (8-16); BLOOD UREA NITROGEN 43 MG/DL (7-18); BUN/CREATININE RATIO 8.1 (10.0-20.0); CALCIUM 7.8 MG/DL (8.5-10.1); CHLORIDE 99 MMOL/L (99-107); CREATININE 5.31 MG/DL (0.60-1.10); GLUCOSE 110 MG/DL (70-104); POTASSIUM 4.5 MMOL/L (3.5-5.1); SODIUM 138 MMOL/L (135-145); TOTAL CARBON DIOXIDE 28.7 MMOL/L (24-32); eCRCL 14 ML/MIN; eGFR 11 ML/MIN
--- NOTE | 2024-12-17 13:21 | PROGRESS NOTE- Residence ---
Progress Note - Resident Providers to CC Resident Creating Document: ESHA ENGLISHELSAEDILBERTO RES ~ Antibiotic Timeout Antibiotic Ordered?: Yes Subjective Patient seen and examined today. No new complaints. Getting hemodialysis done Objective Vital Signs Date Time Temp Pulse Resp B/P (MAP) Pulse Ox O2 Delivery O2 Flow Rate FiO2 12/17/24 11:41 89 24 99 Nasal Cannula* 3 32 12/17/24 08:55 97.6 94/62 (73) Result Diagram: 12/17/24 0600 12/17/24 0759 General: Alert and oriented x 4 HEENT: Normocephalic and atraumatic. Pupils equal round and reactive to light and accommodation. Extraocular movements intact. Oral and nasal mucosa moist Neck: Trachea is in midline. No masses or JVD Lungs: Bilateral mildly decreased breath sounds. Bilateral rhonchi and basal crackles present. No wheezing Heart: Irregular rhythm. Regular rate. No rubs or murmurs Abdomen: Soft, nontender and nondistended. Bowel sounds present SHOE PULLER: No gross sensory or motor abnormalities Extremities: No cyanosis, clubbing or edema. Left arm fistula present Skin: Warm and dry Coagulation Studies Laboratory Tests Test 12/10/24 12:49 D-Dimer 1.91 MG/L FEU (0-0.50) H D-Dimer Comment Assessment Assessment This is a 64-year-old male who presented to [facility] ED with worsening shortness of breath as well as fatigue he does complain of cough with dark sputum production denies any fever or chills is on 3 L oxygen at home patient was transferred to [facility] since he has a end-stage renal patient on dialysis the patient does have hyperkalemia however serum potassium is lower than prior presentations ED at 6.2 the patient is minimally elevated high sensitivity troponins at 1:58 a.m. and 145 both of which are nondiagnostic due to the patient's end-stage renal disease with a creatinine on presentation of 6.92. Plan Plan End-stage renal disease on dialysis-left arm fistula Regularly gets dialysis on Monday, and Monday Significant hyperkalemia - resolved after dialysis Getting an other cycle of hemodialysis today - 6th one Regular dialysis days - Mon, Crystal, Sat Monitor RFTs Potassium within normal limits Corrected calcium within normal limits Continue midodrine 10 mg t.i.d., recommended to continue as patient had repeated episodes of hypotension during dialysis, also noticed at dialysis center Advised for compression stockings, educated regarding the need for stockings especially during dialysis at the center Acute worsening of chronic respiratory failure on 3 L oxygen at baseline- likely multifactorial including fluid overload due to non compliance with fluid restriction and bilateral bacterial pneumonia Multifocal pneumoniae HFpEF On Zosyn 3.375 g IV q.12h Has left sided pleural effusion - might need a thoracentesis Management as per primary hospitalist team Echocardiogram done in 11/06/24 showed LVEF 55-60%, RVSP 57mmHG, LA severely dilated, RA moderately dilated, moderate mitral regurgitation. Previously got thoracentesis done on 11/25/24 and 11/29/24 Atrial fibrillation with controlled ventricular rate One diltiazem 120 mg p.o. daily Eliquis 5 mg p.o. q.12h Diabetes mellitus type 2 On hyperglycemic protocol Danis English MD Internal Medicine Resident, PGY 2 Date of Service: Dec 17, 2024 Billing Provider: SADA COSTELLO III, MANOJNA RES Dec 17, 2024 13:21
--- NOTE | 2024-12-17 17:47 | PROGRESS NOTE ---
Daily Progress Note Providers to CC ~ Antibiotic Timeout Antibiotic Ordered?: Yes Subjective Patient has no new complaints, seen resting comfortably.In moderate respiratory distress Objective Vital Signs Date Time Temp Pulse Resp B/P (MAP) Pulse Ox O2 Delivery O2 Flow Rate FiO2 12/17/24 16:22 89 22 Nasal Cannula 3.0 12/17/24 16:14 98 32 12/17/24 15:00 97.0 91/54 (66) Result Diagram: 12/17/24 0600 12/17/24 0759 Alert oriented in NAD HEENT NC, AT , EOMI, Sclera anicteric, conjuctiva pinkish, moist oral mucosa Neck supple, no JVD , Chest clear to auscultation , no wheezes crackles or rhonchi , decreased breath sounds on the left Heart RRR, No murmur gallop or rub Abdomen soft nontender no organomegaly Extremities No C/C/E LUE AVF with good bruit Neuro exam nonfocal Skin: Right leg open sores at the sit of bluster abhishek Coagulation Studies Laboratory Tests Test 12/10/24 12:49 D-Dimer 1.91 MG/L FEU (0-0.50) H D-Dimer Comment Other Results Medications reviewed Problem\Assessment\Plan Problems/Diagnosis: (1) Respiratory failure # Acute on chronic respiratory failure on 3 L oxygen at baseline : Continue supplemental oxygen and BIPAP # Atrial fibrillation persistent Continue diltiazem Continue apixaban for DVT and stroke prophylaxis # Multifocal bacterial pneumonia NOS- IV Zosyn # End-stage renal disease on dialysis- Followed by nephrology, on HD # Hyperkalemia - Significantly improved with dialysis The patient received temporary hyperkalemic treatment measures a [facility] 12/12 resolved # [id number] diabetes mellitus and a hyper and hypoglycemic protocol Blood sugar is mostly controlled no changes today # Macrocytic anemia- Continue Monitor daily CBC Received Epogen 12/11 hemoglobin slowly downtrending 12/14 hemoglobin dropped to 7.1 and patient transfused 1 unit packed red blood cells # Pleural effusion Pending evaluation by Dr. Lester for thoracentesis Disposition: SNF when available Sepsis Screening Skin Color: Normal Date of Service: Dec 17, 2024 Billing Provider: VESNA GONZALEZ MD Common Visit Codes: [id number] INP/OBS CARE(HIGH) Problem Qualifiers (1) Respiratory failure: Qualified Codes: J96.21 - Acute and chronic respiratory failure with hypoxia VESNA GONZALEZ MD Dec 17, 2024 17:47
[2024-12-18] VITALS (16 sets, daily range): BP systolic 87–114; BP diastolic 54–78; PULSE 77–103; RESP 17–39; TEMP 97.2–98.6; O2SAT 95–100
--- NOTE | 2024-12-18 10:55 | PROGRESS NOTE ---
Daily Progress Note Providers to CC ~ Antibiotic Timeout Antibiotic Ordered?: Yes Subjective No new complaints. Patient is awaiting a thoracentesis. Objective Vital Signs Date Time Temp Pulse Resp B/P (MAP) Pulse Ox O2 Delivery O2 Flow Rate FiO2 12/18/24 07:39 78 20 Nasal Cannula 3.0 12/18/24 07:37 96 36 12/18/24 02:00 98.6 92/68 (76) Result Diagram: 12/17/24 0600 12/17/24 0759 Alert oriented in NAD HEENT NC, AT , EOMI, Sclera anicteric, conjuctiva pinkish, moist oral mucosa Neck supple, no JVD , Chest clear to auscultation , no wheezes crackles or rhonchi , decreased breath sounds on the left Heart RRR, No murmur gallop or rub Abdomen soft nontender no organomegaly Extremities No C/C/E LUE AVF with good bruit Neuro exam nonfocal Skin: Right leg open sores at the sit of bluster abhishek Coagulation Studies Laboratory Tests Test 12/10/24 12:49 D-Dimer 1.91 MG/L FEU (0-0.50) H D-Dimer Comment Other Results Medications reviewed Problem\Assessment\Plan Problems/Diagnosis: (1) Respiratory failure # Acute on chronic respiratory failure on 3 L oxygen at baseline : Continue supplemental oxygen and BIPAP # Atrial fibrillation persistent Continue diltiazem Continue apixaban for DVT and stroke prophylaxis # Multifocal bacterial pneumonia NOS- IV Zosyn # End-stage renal disease on dialysis- Followed by nephrology, on HD # Hyperkalemia - Significantly improved with dialysis The patient received temporary hyperkalemic treatment measures a [facility] 12/12 resolved # Rqw-xbbfdtn-mogyuoqin diabetes mellitus and a hyper and hypoglycemic protocol Blood sugar is mostly controlled no changes today # Macrocytic anemia- Continue Monitor daily CBC Received Epogen 12/11 hemoglobin slowly downtrending 12/14 hemoglobin dropped to 7.1 and patient transfused 1 unit packed red blood cells # Pleural effusion Pending evaluation by Dr. Lester for thoracentesis . Disposition: SNF when available Sepsis Screening Skin Color: Normal Date of Service: Dec 18, 2024 Billing Provider: VESNA GONZALEZ MD Common Visit Codes: [id number] INP/OBS CARE(HIGH) Problem Qualifiers (1) Respiratory failure: Qualified Codes: J96.21 - Acute and chronic respiratory failure with hypoxia VESNA GONZALEZ MD Dec 18, 2024 10:55
[2024-12-18 10:59] LABS: BASOPHILS % (AUTO) 0.5 % (0-1); EOSINOPHILS # (AUTO) 0.1 X10'3 (0-0.9); EOSINOPHILS % (AUTO) 1.3 % (0-6); HEMATOCRIT 29.8 % (42.0-52.0); HEMOGLOBIN 9.5 g/dl (14.0-17.9); LYMPHOCYTES # (AUTO) 0.6 X10'3 (1.1-4.8); LYMPHOCYTES % (AUTO) 10.5 % (21-51); MEAN CORPUSCULAR HEMOGLOBIN 30.6 PG (27.0-31.0); MEAN CORPUSCULAR HGB CONC 31.8 g/dL (33.0-36.5); MEAN CORPUSCULAR VOLUME 96.1 FL (78-98); MEAN PLATELET VOLUME 7.4 FL (7.4-10.4); MONOCYTES % (AUTO) 16.6 % (2-12); NEUTROPHILS # (AUTO) 4.2 X10'3 (1.8-7.7); NEUTROPHILS % (AUTO) 71.1 % (42-75); PLATELET COUNT 104 X10'3 (140-440); RED CELL DISTRIBUTION WIDTH 25.7 % (11.5-14.5); WHITE BLOOD COUNT 5.9 X10'3 (4.5-11.0)
[2024-12-18 11:16] LABS: ALANINE AMINOTRANSFERASE 27 U/L (12-78); ALBUMIN 3.2 G/DL (3.4-5.0); ALBUMIN/GLOBULIN RATIO 0.9 (1.1-1.5); ALKALINE PHOSPHATASE 64 IU/L (46-116); ANION GAP 15 (8-16); ASPARTATE AMINO TRANSFERASE 19 U/L (10-37); BILIRUBIN,TOTAL 0.8 MG/DL (0.1-1.0); BLOOD UREA NITROGEN 37 MG/DL (7-18); BUN/CREATININE RATIO 7.7 (10.0-20.0); CALCIUM 8.6 MG/DL (8.5-10.1); CHLORIDE 100 MMOL/L (99-107); CREATININE 4.83 MG/DL (0.60-1.10); GLUCOSE 130 MG/DL (70-104); POTASSIUM 4.6 MMOL/L (3.5-5.1); SODIUM 143 MMOL/L (135-145); TOTAL CARBON DIOXIDE 28.5 MMOL/L (24-32); TOTAL PROTEIN 6.7 G/DL (6.4-8.2); eCRCL 15 ML/MIN; eGFR 12 ML/MIN
--- NOTE | 2024-12-18 11:33 | PROGRESS NOTE- Residence ---
Progress Note - Resident Providers to CC Resident Creating Document: EVE BERNARD RES ~ Antibiotic Timeout Antibiotic Ordered?: Yes Subjective Patient is seen and examined at the bedside today. Patient complaints of feeling short of breadth. Chest x-ray showed left-sided pleural effusion. The work manager has been consulted for thoracocentesis. Patient mentioned that he gets paracentesis done once a month, he had paracentesis one month ago and is due for the next one. Objective Vital Signs Date Time Temp Pulse Resp B/P (MAP) Pulse Ox O2 Delivery O2 Flow Rate FiO2 12/18/24 07:39 78 20 Nasal Cannula 3.0 12/18/24 07:37 96 36 12/18/24 02:00 98.6 92/68 (76) Result Diagram: 12/18/24 1023 12/18/24 1023 General: Alert and oriented x 4 my in mild respiratory distress HEENT: Normocephalic and atraumatic. Pupils equal round and reactive to light and accommodation. Extraocular movements intact. Oral and nasal mucosa moist Neck: Trachea is in midline. No masses or JVD Lungs: Bilateral mildly decreased breath sounds. Bilateral rhonchi and basal crackles present, more on left side. No wheezing Heart: Irregular rhythm. Regular rate. No rubs or murmurs Abdomen: Soft, nontender and nondistended. Bowel sounds present COLOR CORRECTOR: No gross sensory or motor abnormalities Extremities: No cyanosis, clubbing or edema. Left arm fistula present Skin: Warm and dry Coagulation Studies Laboratory Tests Test 12/10/24 12:49 D-Dimer 1.91 MG/L FEU (0-0.50) H D-Dimer Comment Assessment Assessment This is a 64-year-old male who presented to [facility] ED with worsening shortness of breath as well as fatigue he does complain of cough with dark sputum production denies any fever or chills is on 3 L oxygen at home patient was transferred to [facility] since he has a end-stage renal patient on dialysis the patient does have hyperkalemia however serum potassium is lower than prior presentations ED at 6.2 the patient is minimally elevated high sensitivity troponins at 1:58 a.m. and 145 both of which are nondiagnostic due to the patient's end-stage renal disease with a creatinine on presentation of 6.92. Plan Plan End-stage renal disease on dialysis-left arm fistula Regularly gets dialysis on Monday, and Monday Significant hyperkalemia - resolved after dialysis Patient got six rounds of dialysis, dialysis tomorrow. Regular dialysis days - Mon, Crystal, Sat Monitor RFTs Potassium within normal limits Corrected calcium within normal limits Continue midodrine 10 mg t.i.d., recommended to continue as patient had repeated episodes of hypotension during dialysis, also noticed at dialysis center Advised for compression stockings, educated regarding the need for stockings especially during dialysis at the center Acute worsening of chronic respiratory failure on 3 L oxygen at baseline- likely multifactorial including fluid overload due to non compliance with fluid restriction and bilateral bacterial pneumonia Multifocal pneumoniae On Zosyn 3.375 g IV q.12h Has left sided pleural effusion -ICU work manager has been consulted for thoracocentesis. Management as per primary hospitalist team Atrial fibrillation with controlled ventricular rate One diltiazem 120 mg p.o. daily Eliquis 5 mg p.o. q.12h Diabetes mellitus type 2 On hyperglycemic protocol Eve Bernard MD Internal Medicine Resident, PGY 1 Date of Service: Dec 18, 2024 Billing Provider: SADA COSTELLO III, PRAVAHIKA, RES Dec 18, 2024 11:33
[2024-12-18 15:26] LABS: PLEURAL FLUID PH 7.408 (7.63-7.65)
[2024-12-18 15:27] LABS: BFSOURCE LEFT PLEURAL FLD
[2024-12-18 15:47] LABS: GLUCOSE,BODY FLUID 146 MG/DL; LDH,BODY FLUID 95 U/L; TOTAL PROTEIN,BODY FLUID 2.2 G/DL
--- NOTE | 2024-12-18 15:51 | RADIOLOGY REPORT ---
PROCEDURE: ULTRASOUND GUIDED THORACENTESIS USING TEMPORARY CATHETER HISTORY: 64 Male with left pleural effusion requiring thoracentesis. DOCUMENTATION: Informed consent was obtained and a procedural time out was performed. TECHNIQUE: Ultrasound was used to locate the left pleural fluid collection with an image archived in the PACS. The skin over the left posterior hemithorax was sterilely prepped, draped, and infiltrated with 1% lidocaine. Under real time ultrasound guidance, the left pleural space was accessed with a 19 -gauge Yueh needle and connected to Vacutainers. The Yueh catheter was advanced, the needle was remov ed and the temporary catheter was advanced and connected to the Vacutainer. Approximately 0.2 liters of straw-colored fluid was removed. The temporary catheter was removed and sterile dressings were joel lied. FINDINGS: Ultrasound demonstrates a small left pleural effusion. Imaging confirms the needle tip with in the fluid. IMPRESSION: SUCCESSFUL ULTRASOUND GUIDED THORACENTESIS. Procedure by Dr. Lester
[2024-12-18 16:20] LABS: BFAPPEAR HAZY; BFSOURCE LEFT PLEURAL FLD
[2024-12-18 16:21] LABS: BF WBC COUNT 209 /CU MM (0-1000); BFCOLOR YELLOW; BFVOLUME 50 ML
[2024-12-18 16:22] LABS: BF MESOTHELIAL CELLS FEW; BF RBC COUNT 1168 /CU MM; EOSINOPHILS,BODY FLUID 1 %; LYMPHOCYTES,BODY FLUID 40 %; MONOCYTES,BODY FLUID 48 %; NEUTROPHILS,BODY FLUID 11 %
--- NOTE | 2024-12-18 19:25 | RADIOLOGY REPORT ---
EXAM: XR Chest, 1 View CLINICAL INDICATION: post thoracentesis TECHNIQUE: Frontal view of the chest. COMPARISON: DI CHEST,SINGLE VIEW on DOS: 12/16/24, DI CHEST,SINGLE VIEW on DOS: 12/15/24, DI CHEST,SING LE VIEW on DOS: 12/13/24, DI CHEST,SINGLE VIEW on DOS: 12/11/24, DI CHEST,SINGLE VIEW on DOS: 12/10/24 FINDINGS: LUNGS AND PLEURAL SPACES: See below. HEART: Cardiomegaly with pulmonary congestion and edema. Superimposed pneumonia cannot be excluded. MEDIASTINUM: Unremarkable. Normal mediastinal contour. BONES/JOINTS: Unremarkable. No acute fracture. OTHER FINDINGS: . IMPRESSION: Cardiomegaly with pulmonary congestion and edema. Superimposed pneumonia cannot be excluded.
[2024-12-19] VITALS (15 sets, daily range): BP systolic 91–112; BP diastolic 59–74; PULSE 61–94; RESP 18–38; TEMP 97.9–98.6; O2SAT 90–99
[2024-12-19] MEDS ORDERED: normal saline 1000ml 100 ML IV PRN (08:45)
[2024-12-19] MEDS: heparin 1,000 units/ml 10ml inj HE ONE ×2 (10:10→10:11)
--- NOTE | 2024-12-19 10:38 | PROGRESS NOTE- Residence ---
Progress Note - Resident Providers to CC Resident Creating Document: EVE BERNARD RES ~ Antibiotic Timeout Antibiotic Ordered?: Yes Subjective Patient is seen and examined at the bedside today. Patient mentioned he was feeling better today. He is scheduled for dialysis today. Thoracocentesis done yesterday Objective Vital Signs Date Time Temp Pulse Resp B/P (MAP) Pulse Ox O2 Delivery O2 Flow Rate FiO2 12/19/24 07:57 82 24 Nasal Cannula 3.0 12/19/24 07:47 95 32 12/19/24 06:00 98.1 112/70 (84) Result Diagram: 12/18/24 1023 12/18/24 1023 General: Alert and oriented x 4 my in mild respiratory distress HEENT: Normocephalic and atraumatic. Pupils equal round and reactive to light and accommodation. Extraocular movements intact. Oral and nasal mucosa moist Neck: Trachea is in midline. No masses or JVD Lungs: Bilateral mildly decreased breath sounds. Bilateral rhonchi and basal crackles present, more on left side. No wheezing Heart: Irregular rhythm. Regular rate. No rubs or murmurs Abdomen: Soft, nontender and nondistended. Bowel sounds present PATIENT FINANCIAL COUNSELOR: No gross sensory or motor abnormalities Extremities: No cyanosis, clubbing or edema. Left arm fistula present Skin: Warm and dry Coagulation Studies Laboratory Tests Test 12/10/24 12:49 D-Dimer 1.91 MG/L FEU (0-0.50) H D-Dimer Comment Assessment Assessment This is a 64-year-old male who presented to [facility] ED with worsening shortness of breath as well as fatigue he does complain of cough with dark sputum production denies any fever or chills is on 3 L oxygen at home patient was transferred to [facility] since he has a end-stage renal patient on dialysis the patient does have hyperkalemia however serum potassium is lower than prior presentations ED at 6.2 the patient is minimally elevated high sensitivity troponins at 1:58 a.m. and 145 both of which are nondiagnostic due to the patient's end-stage renal disease with a creatinine on presentation of 6.92. Plan Plan End-stage renal disease on dialysis-left arm fistula Regularly gets dialysis on Monday, and Monday Significant hyperkalemia - resolved after dialysis Six rounds of dialysis done, scheduled for dialysis today. Regular dialysis days - Tue, Crystal, Sat Monitor RFTs Potassium within normal limits Corrected calcium within normal limits Continue midodrine 10 mg t.i.d., recommended to continue as patient had repeated episodes of hypotension during dialysis, also noticed at dialysis center Advised for compression stockings, educated regarding the need for stockings especially during dialysis at the center Acute worsening of chronic respiratory failure on 3 L oxygen at baseline- likely multifactorial including fluid overload due to non compliance with fluid restriction and bilateral bacterial pneumonia Multifocal pneumoniae HFpEF On Zosyn 3.375 g IV q.12h Paracentesis done yesterday. Management as per primary hospitalist team Echocardiogram done in 11/06/24 showed LVEF 55-60%, RVSP 57mmHG, LA severely dilated, RA moderately dilated, moderate mitral regurgitation. Previously got thoracentesis done on 11/25/24 and 11/29/24 Atrial fibrillation with controlled ventricular rate One diltiazem 120 mg p.o. daily Eliquis 5 mg p.o. q.12h Diabetes mellitus type 2 On hyperglycemic protocol Eve Bernard MD Internal Medicine Resident, PGY 1 Date of Service: Dec 19, 2024 Billing Provider: SADA COSTELLO III, PRAVAHIKA, RES Dec 19, 2024 10:38
[2024-12-19] MEDS ORDERED: LIDOcaine 1% (10mg/ml) 2ml vial SQ ONE (13:05)
--- NOTE | 2024-12-19 13:33 | RADIOLOGY REPORT ---
EXAM: CT CT CHEST History: PLEURAL EFFUSION Comparison Study: CT CT CHEST on DOS: 11/25/24 TECHNIQUE: Multidetector CT of the chest was performed. Imaging was performed without IV contrast. Ax ial, coronal, and sagittal multiplanar reformats were obtained from the axial data set by the technol nelly. Radiation Dose : CTDI vol 18.68 mGy, DLP 708.65 mGy*cm. Findings: Lungs: Multifocal ground-glass opacities. Pleura: Small left and moderate right pleural effusions with compressive atelectasis. Heart/Great vessels: No cardiomegaly or pericardial effusion. Severe coronary atherosclerosis versus stents. Mediastinum: Slightly prominent mediastinal nodes. Soft tissues/Bones: Moderate multilevel degenerative changes of the thoracic spine. Multilevel mild compression fractures of the lower thoracic spine. Mild volume ascites. Cholelithiasis. 4.4 x 4.1 cm left adrenal nodule. Impression: 1. Multifocal ground-glass opacities favored an infectious/inflammatory etiology. 2. Small left and moderate right pleural effusions. 3. Slightly prominent mediastinal nodes, favored reactive. 4. 4.4 x 4.1 cm left adrenal nodule, similar to prior.
[2024-12-19] MEDS: EPOETIN ALFA-EPBX 20,000 UNIT/ML 1 ML MDV IV ONE (15:56)
--- NOTE | 2024-12-19 21:20 | DISCHARGE SUMMARY ---
Discharge Summary Providers to ~ Discharge Summary Admission Diagnosis: Pneumonia Hospital Course DATE OF ADMISSION: DATE OF DISCHARGE:12/19/2024 Discharge Diagnosis\Comment: Acute respiratory failure Operations\Procedures: Thoracentesis Consultants: Ms Access Database Developer Complications: None Condition on DC: Stable *Problems/Diagnosis: (1) Respiratory failure Total Time Spent on D/C: > 30 Minutes Problem Qualifiers (1) Respiratory failure: Qualified Codes: J96.21 - Acute and chronic respiratory failure with hypoxia VESNA GONZALEZ MD Dec 19, 2024 21:20
== END 2024-12-19 17:29 | DRG 133 ==
LOC: ER 12:33 → ED HOLD 16:29 → UNDOADMIN 16:29 → ED HOLD 20:00 → PCU 3S 21:07
PROVIDERS: ADMIT Family Medicine; ATTEND Family Medicine
PROC: 5A1D70Z Performance of Urinary Filtration, Intermittent, Less than 6 Hours Per Day (ICD-10-PCS; 2024-12-10)
PROC: B32T1ZZ Computerized Tomography (CT Scan) of Left Pulmonary Artery using Low Osmolar Contrast (ICD-10-PCS; 2024-12-10)
PROC: B3201ZZ Computerized Tomography (CT Scan) of Thoracic Aorta using Low Osmolar Contrast (ICD-10-PCS; 2024-12-10)
PROC: B32S1ZZ Computerized Tomography (CT Scan) of Right Pulmonary Artery using Low Osmolar Contrast (ICD-10-PCS; 2024-12-10)
PROC: 5A09357 Assistance with Respiratory Ventilation, Less than 24 Consecutive Hours, Continuous Positive Airway Pressure (ICD-10-PCS; 2024-12-10)
PROC: 5A1D70Z Performance of Urinary Filtration, Intermittent, Less than 6 Hours Per Day (ICD-10-PCS; 2024-12-11)
PROC: 5A09357 Assistance with Respiratory Ventilation, Less than 24 Consecutive Hours, Continuous Positive Airway Pressure (ICD-10-PCS; 2024-12-11)
PROC: 5A09357 Assistance with Respiratory Ventilation, Less than 24 Consecutive Hours, Continuous Positive Airway Pressure (ICD-10-PCS; 2024-12-12)
PROC: 5A1D70Z Performance of Urinary Filtration, Intermittent, Less than 6 Hours Per Day (ICD-10-PCS; 2024-12-13)
PROC: 5A09357 Assistance with Respiratory Ventilation, Less than 24 Consecutive Hours, Continuous Positive Airway Pressure (ICD-10-PCS; 2024-12-13)
PROC: 30233N1 Transfusion of Nonautologous Red Blood Cells into Peripheral Vein, Percutaneous Approach (ICD-10-PCS; 2024-12-14)
PROC: 5A09357 Assistance with Respiratory Ventilation, Less than 24 Consecutive Hours, Continuous Positive Airway Pressure (ICD-10-PCS; 2024-12-14)
PROC: 5A1D70Z Performance of Urinary Filtration, Intermittent, Less than 6 Hours Per Day (ICD-10-PCS; 2024-12-15)
PROC: 5A09357 Assistance with Respiratory Ventilation, Less than 24 Consecutive Hours, Continuous Positive Airway Pressure (ICD-10-PCS; 2024-12-15)
PROC: 5A1D70Z Performance of Urinary Filtration, Intermittent, Less than 6 Hours Per Day (ICD-10-PCS; 2024-12-16)
PROC: 5A09357 Assistance with Respiratory Ventilation, Less than 24 Consecutive Hours, Continuous Positive Airway Pressure (ICD-10-PCS; 2024-12-16)
PROC: 5A1D70Z Performance of Urinary Filtration, Intermittent, Less than 6 Hours Per Day (ICD-10-PCS; 2024-12-17)
PROC: 5A09357 Assistance with Respiratory Ventilation, Less than 24 Consecutive Hours, Continuous Positive Airway Pressure (ICD-10-PCS; 2024-12-17)
PROC: 0W9B3ZZ Drainage of Left Pleural Cavity, Percutaneous Approach (ICD-10-PCS; principal; 2024-12-18)
PROC: 5A09357 Assistance with Respiratory Ventilation, Less than 24 Consecutive Hours, Continuous Positive Airway Pressure (ICD-10-PCS; 2024-12-18)
PROC: 5A09357 Assistance with Respiratory Ventilation, Less than 24 Consecutive Hours, Continuous Positive Airway Pressure (ICD-10-PCS; 2024-12-19)
DX: J96.21 Acute and chronic respiratory failure with hypoxia (principal); I13.2 Hypertensive heart and chronic kidney disease with heart failure and with stage 5 chronic kidney disease, or end stage renal disease; J15.9 Unspecified bacterial pneumonia; I48.19 Other persistent atrial fibrillation; N18.6 End stage renal disease; J44.0 Chronic obstructive pulmonary disease with (acute) lower respiratory infection; R18.8 Other ascites; I50.9 Heart failure, unspecified; I25.10 Atherosclerotic heart disease of native coronary artery without angina pectoris; E11.22 Type 2 diabetes mellitus with diabetic chronic kidney disease; D53.9 Nutritional anemia, unspecified; K21.9 Gastro-esophageal reflux disease without esophagitis; E87.5 Hyperkalemia; N40.0 Benign prostatic hyperplasia without lower urinary tract symptoms; Z95.1 Presence of aortocoronary bypass graft; Z99.2 Dependence on renal dialysis; Z79.01 Long term (current) use of anticoagulants; Z79.4 Long term (current) use of insulin; Z79.899 Other long term (current) drug therapy; Z91.119 Patient's noncompliance with dietary regimen due to unspecified reason; I25.2 Old myocardial infarction
CPT/HCPCS: 32555; 36415; 36430; 36600; 71045; 71250; 71275; 74177; 76705; 80048; 80053; 82803; 82945; 82948; 83605; 83615; 83735; 83880; 83986; 84157; 84484; 85007; 85018; 85025; 85379; 86885; 86900; 86901; 86920; 87040; 87070; 87075; 87081; 87340; 89051; 93005; 94640; 94660; 94760; 97116; 97161; 97530; 99291; 99292; A4615; A6222; A6223; A6250; A6258; A6402; A6446; A6449; E1594; G0257; G0378; J0610; J0696; J1171; J1644; J1815; J2003; J2543; J2919; J3490; J7030; J7040; P9016; P9047; Q4081